=== PATIENT | female | born 1965 | race Caucasian/White ===

== ENCOUNTER 2019-08-02 07:10 | Outpatient (CLI) | payer OTHER, SELFPAY ==
--- NOTE | ~2019-08-02 | XR_ITS ---
EXAMINATION: XR shoulder RT min 2V INDICATION: Other specific arthropathies not elsewhere specified TECHNIQUE: Four views of the right shoulder are submitted. COMPARISON: None FINDINGS: Normal alignment. No fracture. There is mild glenohumeral and acromioclavicular joint osteo arthritis. Soft tissues are unremarkable. IMPRESSION: 1. Mild osteoarthritis without acute osseous abnormality. Reviewed, dictated and finalized at location A.
== END 2019-08-02 07:11 | disposition home or self-care (01) ==
PROVIDERS: PCP Family Medicine; Visit Provider Family Medicine
DX: M19.011 Primary osteoarthritis, right shoulder (principal)
CPT/HCPCS: 73030

== ENCOUNTER 2019-09-05 15:41 | Outpatient (CLI) | payer OTHER, SELFPAY ==
[2019-09-05 16:36] LABS: Blood Urea Nitrogen 12 mg/dL (7-17); Estimated Glomerular Filt Rate > 60
[2019-09-05 17:44] LABS: Iron 67 ug/dL (37-170)
[2019-09-05 17:53] LABS: Percent Iron Saturation 17 % (20-50)
[2019-09-05 18:20] LABS: Ferritin 8.65 ng/mL (11.1-264)
== END 2019-09-05 15:42 | disposition home or self-care (01) ==
PROVIDERS: PCP Family Medicine; Visit Provider Internal Medicine Pulmonary Disease
DX: M25.50 Pain in unspecified joint (principal)
CPT/HCPCS: 36415; 82565; 82728; 83540; 83550; 84520

== ENCOUNTER 2019-09-12 06:58 | Outpatient (CLI) | payer OTHER, SELFPAY ==
[2019-09-12 07:53] LABS: Alanine Aminotransferase 34 U/L (4-35); Albumin Level 4.3 g/dL (3.5-5.1); Alkaline Phosphatase 59 U/L (38-126); Anion Gap 9.2 mmol/L (7-16); Aspartate Amino Transferase 39 U/L (14-36); Bilirubin,Total 0.2 mg/dL (0.2-1.3); Blood Urea Nitrogen 12 mg/dL (7-17); Calcium 9.3 mg/dL (8.4-10.2); Carbon Dioxide 31 mmol/L (22-30); Chloride 104 mmol/L (98-107); Cholesterol 191 mg/dL (0-200); Estimated Glomerular Filt Rate > 60; Glucose 102 mg/dL (65-105); HDL Direct 52 mg/dL; Potassium 4.2 mmol/L (3.4-5.0); Sodium 140 mmol/L (137-145); Triglycerides 82 mg/dL (<150)
[2019-09-12 08:04] LABS: LDL Cholesterol Direct 104 mg/dL
[2019-09-12 08:59] LABS: Folic Acid 11.9 ng/mL (2.76->20)
== END 2019-09-12 06:59 | disposition home or self-care (01) ==
PROVIDERS: PCP Physician Assistant; Visit Provider Physician Assistant
DX: Z00.00 Encounter for general adult medical examination without abnormal findings (principal)
CPT/HCPCS: 36415; 80053; 80061; 82607; 82746

== ENCOUNTER → 2020-02-03 12:27 | Outpatient (CLI) | payer OTHER, SELFPAY ==
--- NOTE | ~2020-02-03 | MM_ITS ---
EXAMINATION: MM screening [facility] BI w mei HISTORY: Screening TECHNIQUE: Craniocaudal and mediolateral oblique 3-D tomosynthesis images were obtained and synthetic 2-D images were generated. CAD analysis was submitted and interpreted. COMPARISON: Comparison to multiple prior studies sequentially, with oldest reviewed study dated 05/31. BREAST PARENCHYMAL COMPOSITION: There are scattered areas of fibroglandular density. FINDINGS: There is no evidence of suspicious mass, calcification, or architectural distortion to sugg est malignancy in either breast. There has been no suspicious interval change. IMPRESSION: 1. No mammographic evidence of malignancy. 2. Recommend routine screening mammography in one year. BI-RADS Category 1: Negative Reviewed, dictated and finalized at location A. 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
== END ==
PROVIDERS: PCP Physician Assistant; Visit Provider Physician Assistant
DX: Z12.31 Encounter for screening mammogram for malignant neoplasm of breast (principal)
CPT/HCPCS: 77063; 77067

== ENCOUNTER 2020-09-14 06:41 | Outpatient (CLI) | payer OTHER, SELFPAY ==
--- NOTE | ~2020-09-14 | XR_ITS ---
XR hip RT min 3V w AP pelvis DATE: 09/14/2020 07:46 INDICATION: Right hip pain. Loss of strength. No injury. TECHNIQUE: AP pelvis. AP, lateral, crosstable lateral views of right hip COMPARISON: None FINDINGS: There is rotatory levoscoliosis and L5-S1 degenerative disc disease of the lumbar spine. The pubic symphysis and sacroiliac joints are intact. No pelvic fracture or bone destruction. No fracture, dislocation, avascular necrosis or bone destruction of the right hip. Hip joint spaces a re symmetric and relatively well preserved. IMPRESSION: No right hip fracture, avascular necrosis or bone destruction Degenerative disc disease at L5-S1 Rotatory levoscoliosis of the lumbar spine Reviewed, dictated and finalized at location A.
[2020-09-14 07:47] LABS: Hematocrit 39.6 % (37.0-47.0); Hemoglobin 12.2 g/dL (12.0-15.0); Mean Corpuscular HGB Conc 30.8 g/dl (32-36); Mean Corpuscular Hemoglobin 28.2 pg (26-34); Mean Corpuscular Volume 91.5 fl (80-100); Mean Platelet Volume 9.9 fl (7.4-10.4); Platelet Count Result 309 k/mm3 (150-375); Red Blood Count 4.33 M/mm3 (4.2-5.4); Red Cell Distribution Width 14.8 % (11.5-14.5); White Blood Count 5.9 K/mm3 (4.5-10.0)
[2020-09-14 08:47] LABS: Alanine Aminotransferase 29 U/L (4-35); Albumin Level 4.2 g/dL (3.5-5.1); Alkaline Phosphatase 61 U/L (38-126); Anion Gap 5 mmol/L (8-16); Aspartate Amino Transferase 40 U/L (14-36); Bilirubin,Total 0.3 mg/dL (0.2-1.3); Blood Urea Nitrogen 13 mg/dL (7-17); Calcium 9.5 mg/dL (8.4-10.2); Carbon Dioxide 27 mmol/L (22-30); Chloride 108 mmol/L (98-107); Cholesterol 188 mg/dL (0-200); Estimated Glomerular Filt Rate > 60; Glucose 103 mg/dL (65-110); HDL Direct 58 mg/dL; Potassium 4.6 mmol/L (3.4-5.0); Sodium 140 mmol/L (137-145); Triglycerides 60 mg/dL (<150)
[2020-09-14 08:59] LABS: LDL Cholesterol Direct 89 mg/dL
[2020-09-14 09:35] LABS: Iron 37 ug/dL (37-170)
[2020-09-14 09:47] LABS: Percent Iron Saturation 9 % (20-50)
[2020-09-14 10:09] LABS: Ferritin 6.68 ng/mL (11.1-264)
[2020-09-14 10:26] LABS: Folic Acid 10.4 ng/mL (2.76->20)
== END 2020-09-14 06:42 | disposition home or self-care (01) ==
LOC: ANHLAB 06:45
PROVIDERS: PCP Physician Assistant; Visit Provider Physician Assistant
DX: M25.551 Pain in right hip (principal)
CPT/HCPCS: 36415; 73502; 80053; 80061; 82607; 82728; 82746; 83540; 83550; 84443; 85027

== ENCOUNTER 2020-10-18 02:10 | Day surgery (SDC) | payer OTHER, SELFPAY ==
[2020-10-13 15:50] VITALS: BMI 34.8
--- NOTE | 2020-10-18 07:44 | P.PNAN_ITS ---
Anes - Initial Pre Proc Eval Procedure: Operation Date: 10/18/20 09:45 Proposed Procedures p Colonoscopy - Cole Leon MD Date/Time: 10/18/20 07:44 Surgeon: Cole Leon MD Pre Op Diagnosis: FARRAH D50.9, hx of colon polyps Z86.010 Patient Data Age: 55 Gender: F Height: 1.63 m Weight: 92 kg Allergies Allergy/AdvReac Type Severity Reaction Status Date / Time hydrocodone Allergy Severe DIZZINESS Verified 10/18/20 09:10 AND N/V,BP DROPS Home Medications Medication Instructions Recorded Confirmed Type omeprazole magnesium 20 mg 20 mg PO DAILY 05/12/19 10/13/20 History tablet,delayed release ferrous sulfate 325 mg (65 mg 325 mg PO .qod tablet 09/11/19 10/13/20 History iron) tablet Patient hx anesthesia problems: none Family hx anesthesia problems: none [facility] Past Medical History Medical History (Updated 10/18/20 @ 09:31 by Cole Leon MD) Arthritis Chronic GERD CTS (carpal tunnel syndrome) Iron deficiency anemia Obesity (BMI 30-39.9) Surgical History Surgical History H/O section H/O elbow surgery H/O tubal ligation Family History Family History Father Family history of lung cancer Mother Family history of coronary artery disease Other Diabetes mellitus Social History Social History Smoking status: Never smoker Second hand tobacco smoke exposure: No Alcohol intake: never Alcohol use details: socially Substance use: never Substance use type: does not use Living arrangements: with family Spiritual care concerns: No Anes - Eval Final PreProcedure Day of Procedure 10/18/20 07:44 Patient weight: obese Heart: regular rate and rhythm Lungs: clear to auscultation and normal air movement Airway: Mallampati scale class II Neurological: alert and oriented Last oral intake: >/= 8 hours ASA classification: II Emergent: no Anesthetic plan: proceed Anesthesia type and monitoring: general GIVS Informed Consent: The patient's anesthetic plan and its attendant risks and benefits were discussed with the patient/family/POA. Questions were solicited and answers provided to the satisfaction of the patient/family/POA.
[2020-10-18 09:12] VITALS: BP 137/87; PULSE 66; RESP 16; TEMP 36.3; O2SAT 100; BMI 34.7
[2020-10-18] MEDS: LACTATED RINGERS 1,000 ML 150 ML IV CONT (09:23)
--- NOTE | 2020-10-18 09:29 | WPDGICN ---
Assessment and Plan Assessment and plan (1) History of colon polyps: Code(s): Z86.010 - Personal history of colonic polyps Status: Acute Assessment and Plan: Patient has a history of colon polyps. Most recently 2016. For this reason patient follows up with repeat colonoscopy today. Further recommendations will be given after endoscopy. Colon polyps potentially could contribute to iron deficiency. (2) Iron deficiency: Code(s): E61.1 - Iron deficiency Status: Acute Assessment and Plan: Patient has low iron indices as well as a low ferritin. Suggesting iron deficiency. She does have a history of colon polyps which potentially could contribute to this. She has a history of GE reflux that could contribute should she have erosions. And also may be iron deficient because of chronic PPI therapy and iron suppression causing malabsorption of iron. Suggest stool Hemoccult be obtained as an outpatient (3) Chronic GERD: Code(s): K21.9 - Gastro-esophageal reflux disease without esophagitis Status: Acute Assessment and Plan: patient has a history of chronic GE reflux. Currently controlled with omeprazole 20mg p.o. daily. Patient may benefit from elective EGD because of iron deficiency. GI Consult Note Consult date/time: 10/18/20 09:29 HPI: Yoselin Taylor is a 55 year old female Presents for surveillance colonoscopy. Patient was found to have colon polyp in 2016. She presents today for follow-up examination. Patient reports that her laboratory test have consistently shown a low ferritin and low iron saturation. Patient is not anemic. She denies any obvious bleeding. No obvious bruises. No significant extra menstrual blood loss. She has no obvious blood in her stools. Family history is noncontributory. She currently is on supplemental iron replacement. She presents today for follow-up colonoscopy. Review of Systems Review of Systems: All systems reviewed & are unremarkable except as noted in HPI and below PMFSH Past Medical History Medical History (Updated 10/18/20 @ 09:31 by Cole Leon MD) Arthritis Chronic GERD CTS (carpal tunnel syndrome) Iron deficiency anemia Obesity (BMI 30-39.9) Surgical History Surgical History H/O section H/O elbow surgery H/O tubal ligation Family History Family History Father Family history of lung cancer Mother Family history of coronary artery disease Other Diabetes mellitus Social History Social History Smoking status: Never smoker Second hand tobacco smoke exposure: No Alcohol intake: never Alcohol use details: socially Substance use: never Substance use type: does not use Living arrangements: with family Spiritual care concerns: No Meds Home Medications and Allergies Home Medications Medication Instructions Recorded Confirmed Type omeprazole magnesium 20 mg 20 mg PO DAILY 05/12/19 10/13/20 History tablet,delayed release ferrous sulfate 325 mg (65 mg 325 mg PO .qod tablet 09/11/19 10/13/20 History iron) tablet Allergies Allergy/AdvReac Type Severity Reaction Status Date / Time hydrocodone Allergy Severe DIZZINESS Verified 10/18/20 09:10 AND N/V,BP DROPS Vital Signs Vital Signs - 24 hr 10/18/20 09:12 Temperature 97.4 F L Pulse Rate 66 Respiratory Rate 16 Blood Pressure 137/87 Pulse Oximetry 100 Exam Narrative: Physical exam reveals patient be alert. Vital signs stable. HEENT exam is unremarkable. Patient is anicteric. Lungs are clear to auscultation and percussion. Heart is without murmur or extra sounds. Abdominal exam bowel sounds are present soft nontender with no organomegaly. Digital external rectal exam is normal.
[2020-10-18 10:21] VITALS: BP 105/61; PULSE 79; RESP 17; O2SAT 98
[2020-10-18 10:31] VITALS: BP 112/69; PULSE 80; RESP 17; O2SAT 97
[2020-10-18 10:41] VITALS: BP 115/81; PULSE 66; RESP 13; O2SAT 100
== END 2020-10-18 10:53 | disposition home or self-care (01) ==
PROVIDERS: PCP Physician Assistant; Visit Provider Internal Medicine Gastroenterology
PROC: 0DJD8ZZ Inspection of Lower Intestinal Tract, Via Natural or Artificial Opening Endoscopic (ICD-10-PCS; CPT 45378; principal; 2020-10-18 09:45)
DX: D50.9 Iron deficiency anemia, unspecified (principal); K63.5 Polyp of colon; M19.90 Unspecified osteoarthritis, unspecified site; G56.00 Carpal tunnel syndrome, unspecified upper limb; E66.9 Obesity, unspecified; Z68.34 Body mass index [BMI] 34.0-34.9, adult
CPT/HCPCS: 45385; 88305; J2704; J7120

== ENCOUNTER 2020-12-20 15:40 | Outpatient (CLI) | payer OTHER, SELFPAY ==
[2020-12-20 16:59] LABS: Iron 81 ug/dL (37-170)
[2020-12-20 17:13] LABS: Percent Iron Saturation 24 % (20-50)
== END 2020-12-20 15:41 | disposition home or self-care (01) ==
LOC: ANHLAB 15:42
PROVIDERS: PCP Internal Medicine; Visit Provider Physician Assistant
DX: D50.9 Iron deficiency anemia, unspecified (principal)
CPT/HCPCS: 36415; 82728; 83540; 83550

== ENCOUNTER 2021-01-04 12:15 | Outpatient (CLI) | payer OTHER, SELFPAY ==
--- NOTE | 2021-01-04 12:28 | PC.NURSE ---
Pt to room 209 amb per self. [facility] plan of care explained. Pt has no questions. Complains of body aches today. Oriented to room. [employer] in reach, reminded to call with needs.
[2021-01-04] MEDS: FAMOTIDINE 20 MG TABLET PO (12:47)
[2021-01-04] MEDS: ACETAMINOPHEN 325 MG TABLET 650 MG PO (12:47)
[2021-01-04] MEDS: diphenhydrAMINE HCl CAP 25 MG CAPSULE PO (12:47)
[2021-01-04 12:48] VITALS: BP 135/85; PULSE 101; RESP 20; TEMP 38.2; O2SAT 99
--- NOTE | 2021-01-04 14:32 | PC.NURSE ---
Pt has no questions or complaints. Discharged to home amb per self.
== END 2021-01-04 12:16 | disposition home or self-care (01) ==
LOC: CHSTREATRM 12:18
PROVIDERS: PCP Physician Assistant; Visit Provider Physician Assistant
DX: U07.1 COVID-19 (principal)
CPT/HCPCS: A9270; J7050; M0243; Q0244

== ENCOUNTER 2021-01-22 08:58 | Outpatient (CLI) | payer OTHER, SELFPAY ==
--- NOTE | ~2021-01-22 | MR_ITS ---
EXAMINATION: MR lumbar spine wo con DATE: 01/22/2021 09:47 INDICATION: Lumbar radiculopathy. TECHNIQUE: Magnetic resonance imaging (MRI) of the lumbar spine was performed without intravenous con trast. Sequences included sagittal T2-weighted FSE, coronal STIR FSE, sagittal T2-weighted FS FSE, sa gittal T1-weighted FSE, and axial T2-weighted FSE. COMPARISON: None FINDINGS: There is 14 degrees levoscoliosis of lumbar spine. Vertebral body heights are normal. There is moderately decreased disc height at L2-L3, mildly decreased disc height at L4-L5, and severely de creased disc height at L5-S1. The following disc levels are specifically discussed: L1-L2: There is a central protrusion. There is mild bilateral facet joint osteoarthritis. There is no neural foraminal stenosis. There is mild central canal stenosis. L2-L3: The disc is bulging and has an annular fissure. There is mild bilateral facet joint osteoarthr itis. There is mild bilateral neural foraminal stenosis. There is mild central canal stenosis. L3-L4: The disc does not extend beyond the endplate margin. There is moderate right and mild left fac et joint osteoarthritis. There is no neural foraminal stenosis. There is no central canal stenosis. L4-L5: The disc is bulging and has an annular fissure. There is mild bilateral facet joint osteoarthr itis. There is mild bilateral neural foraminal stenosis. There is mild central canal stenosis. L5-S1: The disc is bulging and has an annular fissure. There is moderate bilateral facet joint osteoa rthritis. There is mild bilateral neural foraminal stenosis. There is mild central canal stenosis. IMPRESSION: 1. Severe lumbar spondylosis. 2. Lumbar levoscoliosis. Reviewed, dictated and finalized at location A. 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
== END 2021-01-22 08:59 | disposition home or self-care (01) ==
LOC: ANHIMG 09:05
PROVIDERS: PCP Physician Assistant; Visit Provider Nurse Practitioner Adult Health
DX: M54.16 Radiculopathy, lumbar region (principal); M43.06 Spondylolysis, lumbar region; M41.86 Other forms of scoliosis, lumbar region
CPT/HCPCS: 72148

== ENCOUNTER 2021-02-02 00:20 | Day surgery (SDC) | payer OTHER, SELFPAY ==
[2021-01-19 08:44] VITALS: BMI 34.0
[2021-02-02 07:46] VITALS: BP 144/93; PULSE 97; RESP 18; TEMP 36.7; O2SAT 98
[2021-02-02] MEDS: LACTATED RINGERS 1,000 ML 150 ML IV CONT (07:49)
--- NOTE | 2021-02-02 08:20 | WPDANESEPPF ---
Anes - Initial Pre Proc Eval Procedure: Operation Date: 02/02/21 09:00 Proposed Procedures p Esophagogastroduodenoscopy - Cole Leon MD Date/Time: 02/02/21 08:20 Surgeon: Cole Leon MD Pre Op Diagnosis: FARRAH, GERD Patient Data Age: 55 Gender: F Height: 1.63 m Weight: 92.5 kg Last Vital Signs Temp 36.7 C 02/02/21 07:46 Pulse 97 02/02/21 07:46 Resp 18 02/02/21 07:46 BP 144/93 H 02/02/21 07:46 Pulse Ox 98 02/02/21 07:46 Allergies Allergy/AdvReac Type Severity Reaction Status Date / Time hydrocodone Allergy Severe DIZZINESS Verified 02/02/21 07:45 AND N/V,BP DROPS Home Medications Medication Instructions Recorded Confirmed Type omeprazole magnesium 20 mg 20 mg PO DAILY 05/12/19 02/02/21 History tablet,delayed release ferrous sulfate 325 mg (65 mg 325 mg PO .qod tablet 09/11/19 02/02/21 History iron) tablet Patient hx anesthesia problems: none Family hx anesthesia problems: none Results Review: All pre-operative results and documents have been reviewed as part of the pre-operative evaluation. [facility] Past Medical History Medical History Arthritis Chronic GERD CTS (carpal tunnel syndrome) Iron deficiency anemia Obesity (BMI 30-39.9) Surgical History Surgical History H/O section H/O elbow surgery H/O tubal ligation Family History Family History Father Family history of lung cancer Mother Family history of coronary artery disease Other Diabetes mellitus Social History Social History Smoking status: Never smoker Second hand tobacco smoke exposure: No Alcohol intake: never Alcohol use details: socially Substance use: never Substance use type: does not use Living arrangements: with family Spiritual care concerns: No Anes - Eval Final PreProcedure Day of Procedure 02/02/21 08:20 Patient weight: obese Heart: regular rate and rhythm Lungs: clear to auscultation Airway: Mallampati scale class II Neurological: alert and oriented Last oral intake: >/= 8 hours ASA classification: II Emergent: no Anesthetic plan: proceed Anesthesia type and monitoring: general GIVS and standard monitoring Results Review: All pre-operative results and documents have been reviewed as part of the pre-operative evaluation. Informed Consent: The patient's anesthetic plan and its attendant risks and benefits were discussed with the patient/family/POA. Questions were solicited and answers provided to the satisfaction of the patient/family/POA.
--- NOTE | 2021-02-02 08:39 | WPDGICN ---
Assessment and Plan Assessment and plan (1) Iron deficiency: Code(s): E61.1 - Iron deficiency Status: Acute Assessment and Plan: Patient with iron deficiency may be related to blood loss for this reason EGD will be performed. Alternatively it may be related to chronic PPI therapy and acid suppression. Supplemental iron is advised. Follow-up CBC. If says iron fails to improve on oral iron then consider intravenous iron. (2) Chronic GERD: Code(s): K21.9 - Gastro-esophageal reflux disease without esophagitis Status: Acute Assessment and Plan: Chronic GE reflux potentially contributes to anemia. EGD will be performed today. Currently felt stable on PPI therapy and anti-reflux measures. Further recommendations may be given after endoscopy. (3) History of colon polyps: Code(s): Z86.010 - Personal history of colonic polyps Status: Acute Assessment and Plan: Patient has a history of adenomatous colon polyps. Most recently October 2020. Plan is for follow-up colonoscopy at 5 year intervals. GI Consult Note Consult date/time: 02/02/21 08:39 HPI: Yoselin Taylor is a 55 year old female Presents for EGD. Patient has a history of iron deficiency anemia. Recent colonoscopy revealed benign colon polyps. She has a history of chronic GE reflux disease well controlled on Prilosec 20mg p.o. daily. Because of iron deficiency in EGD is requested to evaluate for possible upper GI source of anemia. She has been on chronic PPI therapy as well. She denies any dysphagia bleeding or weight loss. No longer has menstrual cycles. Review of Systems Review of Systems: All systems reviewed & are unremarkable except as noted in HPI and below PMFSH Past Medical History Medical History Arthritis Chronic GERD CTS (carpal tunnel syndrome) Iron deficiency anemia Obesity (BMI 30-39.9) Surgical History Surgical History H/O section H/O elbow surgery H/O tubal ligation Family History Family History Father Family history of lung cancer Mother Family history of coronary artery disease Other Diabetes mellitus Social History Social History Smoking status: Never smoker Second hand tobacco smoke exposure: No Alcohol intake: never Alcohol use details: socially Substance use: never Substance use type: does not use Living arrangements: with family Spiritual care concerns: No Meds Home Medications and Allergies Home Medications Medication Instructions Recorded Confirmed Type omeprazole magnesium 20 mg 20 mg PO DAILY 05/12/19 02/02/21 History tablet,delayed release ferrous sulfate 325 mg (65 mg 325 mg PO .qod tablet 09/11/19 02/02/21 History iron) tablet Allergies Allergy/AdvReac Type Severity Reaction Status Date / Time hydrocodone Allergy Severe DIZZINESS Verified 02/02/21 07:45 AND N/V,BP DROPS Vital Signs Vital Signs - 24 hr 02/02/21 07:46 Temperature 98.1 F Pulse Rate 97 Respiratory Rate 18 Blood Pressure 144/93 H Pulse Oximetry 98 Exam Narrative: Physical exam reveals patient be alert. Vital signs stable. HEENT exam is unremarkable. Patient is anicteric. Lungs are clear to auscultation and percussion. Heart is without murmur or extra sounds. Abdominal exam bowel sounds present soft nontender with no organomegaly.
[2021-02-02 09:41] VITALS: BP 123/80; PULSE 91; RESP 18; O2SAT 100
[2021-02-02 09:51] VITALS: BP 131/80; PULSE 89; RESP 15; O2SAT 97
[2021-02-02 10:01] VITALS: BP 139/93; PULSE 88; RESP 21; O2SAT 98
== END 2021-02-02 10:06 | disposition home or self-care (01) ==
PROVIDERS: PCP Physician Assistant; Visit Provider Internal Medicine Gastroenterology
PROC: 0DJ08ZZ Inspection of Upper Intestinal Tract, Via Natural or Artificial Opening Endoscopic (ICD-10-PCS; CPT 43235; principal; 2021-02-02 09:00)
DX: D50.9 Iron deficiency anemia, unspecified (principal); K21.9 Gastro-esophageal reflux disease without esophagitis; Z86.010 Personal history of colon polyps; E66.9 Obesity, unspecified; Z68.35 Body mass index [BMI] 35.0-35.9, adult
CPT/HCPCS: 43239; 87081; J2704; J7120

== ENCOUNTER 2021-06-02 06:45 | Outpatient (CLI) | payer OTHER, SELFPAY ==
[2021-06-02 07:27] LABS: Hematocrit 41.3 % (37.0-47.0); Hemoglobin 13.8 g/dL (12.0-15.0); Mean Corpuscular HGB Conc 33.4 g/dl (32-36); Mean Corpuscular Hemoglobin 32.5 pg (26-34); Mean Corpuscular Volume 97.2 fl (80-100); Platelet Count Result 271 k/mm3 (150-375); Red Blood Count 4.25 M/mm3 (4.2-5.4); Red Cell Distribution Width 12.5 % (11.5-14.5); White Blood Count 5.9 K/mm3 (4.5-10.0)
[2021-06-02 07:42] LABS: Alanine Aminotransferase 27 U/L (4-35); Albumin Level 4.2 g/dL (3.5-5.1); Alkaline Phosphatase 56 U/L (38-126); Anion Gap 3 mmol/L (8-16); Aspartate Amino Transferase 32 U/L (14-36); Bilirubin,Total 0.3 mg/dL (0.2-1.3); Blood Urea Nitrogen 14 mg/dL (7-17); Carbon Dioxide 30 mmol/L (22-30); Chloride 106 mmol/L (98-107); Cholesterol 212 mg/dL (0-200); Estimated Glomerular Filt Rate > 60; Glucose 100 mg/dL (65-110); HDL Direct 54 mg/dL; Potassium 3.7 mmol/L (3.4-5.0); Sodium 139 mmol/L (137-145); Triglycerides 70 mg/dL (<150)
[2021-06-02 07:53] LABS: LDL Cholesterol Direct 109 mg/dL
[2021-06-02 08:45] LABS: Folic Acid 14.4 ng/mL (2.76->20)
[2021-06-02 08:59] LABS: Iron 114 ug/dL (37-170)
[2021-06-02 09:06] LABS: Percent Iron Saturation 35 % (20-50)
== END 2021-06-02 06:46 | disposition home or self-care (01) ==
LOC: ANHLAB 06:46
PROVIDERS: PCP Physician Assistant; Visit Provider Physician Assistant
DX: Z00.00 Encounter for general adult medical examination without abnormal findings (principal); D64.9 Anemia, unspecified
CPT/HCPCS: 36415; 80053; 80061; 82607; 82728; 82746; 83540; 83550; 84443; 85027

== ENCOUNTER 2021-07-27 15:28 | Outpatient (CLI) | payer OTHER, SELFPAY ==
--- NOTE | ~2021-07-27 | XR_ITS ---
EXAM: XR knee LT 3V DATE: 07/27/2021 15:56 HISTORY: M25.561 -INJURY X3 WKS AGO,FALL ON KNEE,LUMP ON RT PATELLA . COMPARISON: 10/30/2016. FINDINGS: Decreased mineralization. No fracture or dislocation. No lytic or blastic lesion. Joint sp aces are maintained. Mild bilateral medial joint space narrowing. Bilateral quadriceps and plantar en thesopathy, worse on the right. No erosion or periosteal change. Soft tissues within normal limits. IMPRESSION: No acute osseous finding in the right or left knee. Right patellar enthesophytes may be r esponsible for a palpable mass or lump. Reviewed, dictated and finalized at location K. IMPRESSION: No acute osseous finding in the right or left knee. Right patellar enthesophytes may be responsible for a palpable mass or lump.
--- NOTE | ~2021-07-27 | XR_ITS ---
EXAM: XR knee RT 3V DATE: 07/27/2021 15:56 HISTORY: M25.561 -INJURY X3 WKS AGO,FALL ON KNEE,LUMP ON RT PATELLA . COMPARISON: 10/30/2016. FINDINGS: Decreased mineralization. No fracture or dislocation. No lytic or blastic lesion. Joint sp aces are maintained. Mild bilateral medial joint space narrowing. Bilateral quadriceps and plantar en thesopathy, worse on the right. No erosion or periosteal change. Soft tissues within normal limits. IMPRESSION: No acute osseous finding in the right or left knee. Right patellar enthesophytes may be r esponsible for a palpable mass or lump. Reviewed, dictated and finalized at location K. IMPRESSION: No acute osseous finding in the right or left knee. Right patellar enthesophytes may be responsible for a palpable mass or lump.
== END 2021-07-27 15:29 | disposition home or self-care (01) ==
LOC: ANHIMG 15:30
PROVIDERS: PCP Physician Assistant; Visit Provider Physician Assistant
DX: M25.561 Pain in right knee (principal); M25.562 Pain in left knee
CPT/HCPCS: 73562

== ENCOUNTER → 2022-02-09 09:45 | Outpatient (CLI) | payer BC, SELFPAY ==
--- NOTE | ~2022-02-09 | MM_ITS ---
EXAMINATION: MM screening [facility] BI w mei HISTORY: Screening mammogram TECHNIQUE: Craniocaudal and mediolateral oblique 3-D tomosynthesis images were obtained and synthetic 2-D images were generated. CAD analysis was submitted and interpreted. COMPARISON: 02/03/2020, 01/07/2019, 01/05/2018 BREAST PARENCHYMAL COMPOSITION: There are scattered areas of fibroglandular density. FINDINGS: No suspicious mass, calcification, or architectural distortion are identified in either cristina ast to suggest malignancy. There has been no suspicious interval change. IMPRESSION: 1. No mammographic evidence of malignancy. 2. Recommend routine screening mammography in one year. BI-RADS Category 1: Negative Reviewed, dictated and finalized at location A. 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
== END ==
PROVIDERS: PCP Physician Assistant
DX: Z12.31 Encounter for screening mammogram for malignant neoplasm of breast (principal)
CPT/HCPCS: 77063; 77067

== ENCOUNTER 2022-05-23 15:45 | Outpatient (CLI) | payer BC, SELFPAY ==
--- NOTE | ~2022-05-23 | US_ITS ---
US thyroid INDICATION: Thyroiditis TECHNIQUE: Real-time sonographic images of the thyroid gland were obtained. COMPARISON: No prior studies for comparison. FINDINGS: The right thyroid lobe measures 5 x 1.3 x 1.4 cm. The left thyroid lobe measures 5.3 x 1.1 x 1.4 cm. Thyroid gland is heterogeneous with multiple thyroid nodules in the right lobe there is a solid hypoechoic wider than tall, irregularly marginated mass with internal punctate echogenic foci, measuring 1.2 x 0.8 x 0.8 cm, TR 5. In the left thyroid lobe there is a solid hypoechoic, wider than tall, smoothly marginated mass without internal echogenic foci, TR 4, likely benign. Follow-up ultras ound in 12 months recommended. Also in the left lobe there is a heterogeneous partially cystic 9 mm m ass which is wider than tall, smoothly marginated and no internal echogenic foci, TR 3. IMPRESSION: 1. Suspicious right thyroid mass measuring up to 1.2 cm. Ultrasound-guided right thyroid fine needle aspiration biopsy recommended. 2: Left thyroid masses, likely benign. Follow-up ultrasound in 12 months recommended. Reviewed, dictated and finalized at location A. IMPRESSION: 1. Suspicious right thyroid mass measuring up to 1.2 cm. Ultrasound-guided rig ht thyroid fine needle aspiration biopsy recommended. 2: Left thyroid masses, likely benign. Follow-up ultrasound in 12 months recomm ended.
== END 2022-05-23 15:46 | disposition home or self-care (01) ==
PROVIDERS: PCP Physician Assistant; Visit Provider Physician Assistant
DX: E06.0 Acute thyroiditis (principal); E07.9 Disorder of thyroid, unspecified
CPT/HCPCS: 76536

== ENCOUNTER 2022-06-02 12:11 | Outpatient (CLI) | payer BC, SELFPAY ==
--- NOTE | ~2022-06-02 | US_ITS ---
EXAMINATION: US FNA w image guidance DATE: 06/02/2022 14:21 INDICATION: Right thyroid nodule TECHNIQUE: A time-out was performed to verify the patient's name, date of , and procedure to be performed . The procedure and its benefits and risks were discussed with the patient. Risks specifically discus sed included bleeding and infection. The patient understood the risks and agreed to proceed. The neck was prepped and draped in the usual sterile manner. 3 mL 1% lidocaine was used for local anesthesia . 6 passes were made with a 25G needle into the lesion. Appropriate needle location was documented with continuous sonographic guidance. A sterile bandage was applied. There were no immediate compli cations. FINDINGS: Grayscale ultrasound images demonstrate biopsy needles advanced into a 1.2 cm solid right thyroid nod ule which is hypoechoic, taller than wide with lobular margins and internal echogenic foci (TI-RADS 5 , highly suspicious , FNA if >=1.0 cm, annual followup is >0.5 cm). IMPRESSION: 1. Successful ultrasound-guided fine needle aspiration of a TI RADS 5 1.2 cm right thyroid nodule of concern. Reviewed, dictated and finalized at location A. IMPRESSION: 1. Successful ultrasound-guided fine needle aspiration of a TI RADS 5 1.2 cm r ight thyroid nodule of concern.
== END 2022-06-02 12:12 | disposition home or self-care (01) ==
LOC: ANHIMG 12:12
PROVIDERS: PCP Physician Assistant; Visit Provider Physician Assistant
DX: E04.1 Nontoxic single thyroid nodule (principal)
CPT/HCPCS: 10005; 88173; 88305

== ENCOUNTER 2022-06-03 06:55 | Outpatient (CLI) | payer BC, SELFPAY ==
[2022-06-03 07:22] LABS: Mean Corpuscular HGB Conc 32.6 g/dl (32-36); Mean Corpuscular Hemoglobin 32.2 pg (26-34); Mean Corpuscular Volume 98.9 fl (80-100); Mean Platelet Volume 10.1 fl (7.4-10.4); Platelet Count Result 286 k/mm3 (150-375); Red Blood Count 4.35 M/mm3 (4.2-5.4); Red Cell Distribution Width 12.5 % (11.5-14.5); White Blood Count 5.7 K/mm3 (4.5-10.0)
[2022-06-03 07:42] LABS: Alanine Aminotransferase 32 U/L (6-35); Albumin Level 4.2 g/dL (3.5-5.1); Alkaline Phosphatase 59 U/L (38-126); Anion Gap 2 mmol/L (8-16); Aspartate Amino Transferase 32 U/L (14-36); Bilirubin,Total 0.5 mg/dL (0.2-1.3); Blood Urea Nitrogen 13 mg/dL (7-17); Calcium 9.4 mg/dL (8.4-10.2); Carbon Dioxide 33 mmol/L (22-30); Chloride 106 mmol/L (98-107); Cholesterol 187 mg/dL (0-200); Estimated Glomerular Filt Rate > 60; Glucose 102 mg/dL (65-110); HDL Direct 54 mg/dL; Potassium 4.3 mmol/L (3.4-5.0); Sodium 141 mmol/L (137-145); Triglycerides 73 mg/dL (<150)
[2022-06-03 07:43] LABS: Iron 75 ug/dL (37-170)
[2022-06-03 07:52] LABS: LDL Cholesterol Direct 100 mg/dL; Percent Iron Saturation 26 % (20-50)
== END 2022-06-03 06:56 | disposition home or self-care (01) ==
LOC: ANHLAB 06:56
PROVIDERS: PCP Physician Assistant; Visit Provider Physician Assistant
DX: Z00.00 Encounter for general adult medical examination without abnormal findings (principal); D64.9 Anemia, unspecified
CPT/HCPCS: 36415; 80053; 80061; 82728; 83540; 83550; 84443; 85027

== ENCOUNTER 2022-06-30 15:05 | Outpatient (CLI) | payer BC, SELFPAY ==
--- NOTE | ~2022-06-30 | CT_ITS ---
CT scan of the Neck Technique: 2.5 mm axial scans were obtained through the neck after intravenous administration of 75 c c Omnipaque 350. Coronal and sagittal reconstructions of the neck were obtained. Dose reduction techn ique was used on this scan by utilizing automated exposure control and iterative reconstruction techn ique. The dose-length product (DLP) was 548.34 mGy-cm. Clinical History: Disorder of thyroid, unspecified. Findings: There is no evidence of any significant cervical lymphadenopathy. Several small, nonenlarged jugulo- digastric and posterior cervical lymph nodes are noted bilaterally. Parapharyngeal spaces appear norm al bilaterally. The parotid and submandibular glands appear normal. The pharyngeal mucosal spaces appear normal. No soft tissue masses are seen in the neck. Probable 9 mm hypodense right thyroid lobe nodule. Images of the lung apices reveal no abnormalities. No orbital abnormality seen. Paranasal sinuses and mastoid air cells are clear. Impression: Probable 9 mm hypodense right thyroid nodule. Correlate with recent thyroid FNA results. No distinct evidence to suggest metastatic disease or lymphadenopathy in the neck. Reviewed, dictated and finalized at [facility]. Impression: Probable 9 mm hypodense right thyroid nodule. Correlate with recent thyroid FNA results. No distinct evidence to suggest metastatic disease or lymphadenopathy in the ne ck.
== END 2022-06-30 15:06 | disposition home or self-care (01) ==
PROVIDERS: PCP Physician Assistant; Visit Provider Otolaryngology
DX: E07.9 Disorder of thyroid, unspecified (principal)
CPT/HCPCS: 70491; Q9967

== ENCOUNTER 2022-07-25 15:25 | Outpatient (CLI) | payer BC, SELFPAY ==
[2022-07-25 16:57] LABS: Vitamin D 25 Hydroxy 34.1 ng/mL
== END 2022-07-25 15:26 | disposition home or self-care (01) ==
LOC: ANHLAB 15:27
PROVIDERS: PCP Physician Assistant; Visit Provider Internal Medicine
DX: Z00.00 Encounter for general adult medical examination without abnormal findings (principal); E66.9 Obesity, unspecified
CPT/HCPCS: 36415; 82306

== ENCOUNTER 2022-11-02 10:41 | Outpatient (CLI) | payer BC, SELFPAY ==
[2022-11-02 11:15] LABS: Alanine Aminotransferase 28 U/L (6-35); Albumin Level 4.3 g/dL (3.5-5.1); Alkaline Phosphatase 54 U/L (38-126); Anion Gap 5 mmol/L (8-16); Aspartate Amino Transferase 33 U/L (14-36); Bilirubin,Total 0.4 mg/dL (0.2-1.3); Blood Urea Nitrogen 10 mg/dL (7-17); Calcium 9.2 mg/dL (8.4-10.2); Carbon Dioxide 31 mmol/L (22-30); Chloride 104 mmol/L (98-107); Estimated Glomerular Filt Rate > 60; Glucose 94 mg/dL (65-110); Potassium 3.6 mmol/L (3.4-5.0); Sodium 140 mmol/L (137-145)
[2022-11-02 11:48] LABS: Free T4 Free Thyroxine 0.94 ng/mL (0.78-2.19); Vitamin D 25 Hydroxy 58.5 ng/mL
== END 2022-11-02 10:42 | disposition home or self-care (01) ==
LOC: ANHLAB 10:42
PROVIDERS: PCP Physician Assistant; Visit Provider Internal Medicine
DX: C73 Malignant neoplasm of thyroid gland (principal)
CPT/HCPCS: 36415; 80053; 82306; 84439; 84443

== ENCOUNTER 2023-02-02 15:40 | Outpatient (CLI) | payer BC, SELFPAY ==
[2023-02-02 16:38] LABS: Alanine Aminotransferase 35 U/L (6-35); Albumin Level 4.5 g/dL (3.5-5.1); Alkaline Phosphatase 58 U/L (38-126); Anion Gap 9 mmol/L (8-16); Aspartate Amino Transferase 36 U/L (14-36); Bilirubin,Total 0.4 mg/dL (0.2-1.3); Blood Urea Nitrogen 11 mg/dL (7-17); Calcium 9.1 mg/dL (8.4-10.2); Carbon Dioxide 28 mmol/L (22-30); Chloride 103 mmol/L (98-107); Estimated Glomerular Filt Rate > 60; Glucose 106 mg/dL (65-110); Magnesium 2.1 mg/dL (1.6-2.3); Phosphorus 3.5 mg/dL (2.5-4.5); Potassium 3.6 mmol/L (3.4-5.0); Sodium 140 mmol/L (137-145)
[2023-02-02 16:49] LABS: Parathyroid Intact 37.8 pg/mL (7.5-53.5)
[2023-02-02 17:10] LABS: Free T4 Free Thyroxine 1.27 ng/mL (0.78-2.19); Vitamin D 25 Hydroxy 52.2 ng/mL
== END 2023-02-02 15:41 | disposition home or self-care (01) ==
PROVIDERS: PCP Physician Assistant; Visit Provider Internal Medicine
DX: C73 Malignant neoplasm of thyroid gland (principal)
CPT/HCPCS: 36415; 80053; 82306; 82330; 83735; 83970; 84100; 84439; 84443; 86800

== ENCOUNTER 2023-02-07 08:05 | Outpatient (CLI) | payer BC, SELFPAY ==
[2023-02-07 09:37] LABS: Free T4 Free Thyroxine 1.45 ng/mL (0.78-2.19)
[2023-02-09 22:25] LABS: Ionized Calcium 4.9 mg/dL (4.7-5.5)
[2023-02-10 04:47] LABS: Thyroglobulin 0.6 ng/mL (2.8-40.9); Thyroglobulin Antibodies <1 IU/mL (<=1)
== END 2023-02-07 08:06 | disposition home or self-care (01) ==
LOC: ANHLAB 08:06
PROVIDERS: PCP Physician Assistant; Visit Provider Internal Medicine
DX: C73 Malignant neoplasm of thyroid gland (principal); E89.0 Postprocedural hypothyroidism
CPT/HCPCS: 36415; 82330; 84432; 84439; 84443; 86800

== ENCOUNTER 2023-03-06 16:05 | Outpatient (CLI) | payer BC, SELFPAY ==
[2023-03-06 17:41] LABS: Thyroid Stimulating Hormone 0.741 uIU/mL (0.465-4.680)
[2023-03-06 19:27] LABS: Free T4 Free Thyroxine 1.39 ng/mL (0.78-2.19)
[2023-03-14 15:43] LABS: T3 Free 2.9 pg/mL
== END 2023-03-06 16:06 | disposition home or self-care (01) ==
PROVIDERS: PCP Physician Assistant
DX: C73 Malignant neoplasm of thyroid gland (principal)
CPT/HCPCS: 36415; 84439; 84443; 84480; 86800

== ENCOUNTER 2023-03-20 06:48 | Outpatient (CLI) | payer BC, SELFPAY ==
[2023-03-23 07:38] LABS: Thyroglobulin 1.2 ng/mL (2.8-40.9); Thyroglobulin Antibodies <1 IU/mL (<=1)
== END 2023-03-20 06:49 | disposition home or self-care (01) ==
PROVIDERS: PCP Physician Assistant
DX: C73 Malignant neoplasm of thyroid gland (principal)
CPT/HCPCS: 36415; 84432; 84443; 86800

== ENCOUNTER 2023-05-05 06:44 | Outpatient (CLI) | payer BC, SELFPAY ==
[2023-05-05 08:07] LABS: Thyroid Stimulating Hormone 0.592 uIU/mL (0.465-4.680)
[2023-05-05 08:19] LABS: Free T4 Free Thyroxine 1.64 ng/mL (0.78-2.19)
[2023-05-08 05:37] LABS: Thyroglobulin 0.1 ng/mL (2.8-40.9); Thyroglobulin Antibodies <1 IU/mL (<=1)
[2023-05-09 06:04] LABS: Triiodothyronine T3 Free 3.4 pg/mL (2.3-4.2)
== END 2023-05-05 06:45 | disposition home or self-care (01) ==
PROVIDERS: PCP Physician Assistant
DX: C73 Malignant neoplasm of thyroid gland (principal)
CPT/HCPCS: 36415; 84432; 84439; 84443; 84481; 86800

== ENCOUNTER 2023-06-19 14:56 | Outpatient (CLI) | payer BC, SELFPAY ==
--- NOTE | ~2023-06-19 | DEXA_ITS ---
Bone Density Report Name: DENI SOOD Age: 57 Sex: Female Ethnicity: White Date of : 1965 Indication: postmenopausal; screening for osteoporosis; Referring Provider: Sergio Bush Study: Bone densitometry was performed. Exam Date: June 19, 2023 Accession number: [id number] Bone Density: Region BMD T-score Z-score Classification AP Spine (L1-L4) 1.039 -0.1 1.3 Normal Femoral Neck (Left) 0.710 -1.2 0.0 Osteopenia Total Hip (Left) 1.043 0.8 1.8 Normal Femoral Neck (Right) 0.785 -0.6 0.7 Normal Total Hip (Right) 1.031 0.7 1.7 Normal Total Hip Mean 1.037 0.8 1.8 Normal World Health Organization criteria for BMD impression classify patients as: Normal (T-score at or above -1.0), Osteopenia (T-score between -1.0 and -2.5), or Osteoporosis (T-score at or below -2.5). 10-year Fracture Risk(1): Major Osteoporotic Fracture 6.9% Hip Fracture 0.4% Reported Risk Factors: [place] (), Neck BMD=0.710, BMI=33.7 (1) FRAX(R) Version 3.08. Fracture probability calculated for an untreated patient. Fracture probability may be lower if the patient has received treatment. Clinical Information Provided by Patient: Has used the following medications: Vitamin D, SYNTHROID Patient maximum height was 64.3 Menopause Age: 50 No regular weight bearing exercise Drinks caffeinated beverages Onset of menses at age 11 Number of children 3 Impression: The patient has low bone mass, based on the Left Femoral Neck T-score. The patient has an estimated ten-year risk of hip fracture of 0.4% and an estimated ten-year risk of major fracture of 6.9%, based on the WHO FRAX algorithm. Discussion: BONE DENSITY IS LOW AT ONE OR MORE SKELETAL SITES. This patient's lowest T-score is low at one or more skeletal sites. It meets the World Health Organization's (WHO) criteria for ?low bone mass? (T-score between -1.0 and -2.5). The patient's 10-year risk of fracture as calculated by FRAX is less than the threshold where pharmacological therapy is recommended by the National Osteoporosis Foundation (NOF). However, all treatment decisions require clinical judgment and consideration of individual patient factors, including patient preferences, comorbidities, previous drug use, risk factors not captured in the FRAX model (e.g., frailty, falls, vitamin D deficiency, increased bone turnover, interval significant decline in bone density) and possible under or overestimation of fracture risk by FRAX. The patient should follow a healthful lifestyle (good nutrition with adequate calcium and vitamin D, and appropriate weight-bearing exercise). Follow-Up: Consider repeating this study in 2 to 3 years to reassess this patient's status, or sooner if there is some new clinical indication. Reported by: SHUKRI on 06/19/2023 3:51:00
--- NOTE | ~2023-06-19 | MM_ITS ---
EXAMINATION: MM screening janes BI w mei HISTORY: Screening TECHNIQUE: Craniocaudal and mediolateral oblique 3-D tomosynthesis images were obtained and synthetic 2-D images were generated. CAD analysis was submitted and interpreted. COMPARISON: 02/09/2022, 02/03/2020 bilateral screening mammogram examinations BREAST PARENCHYMAL COMPOSITION: The breasts are almost entirely fatty. FINDINGS: There is no evidence of suspicious mass, calcification, or architectural distortion to sugg est malignancy in either breast. There has been no suspicious interval change. IMPRESSION: 1. No mammographic evidence of malignancy. 2. Recommend routine screening mammography in one year. BI-RADS Category 1: Negative Reviewed, dictated and finalized at location A.
== END 2023-06-19 14:57 ==
PROVIDERS: Visit Provider Physician Assistant
DX: Z12.31 Encounter for screening mammogram for malignant neoplasm of breast (principal); Z78.0 Asymptomatic menopausal state; M85.852 Other specified disorders of bone density and structure, left thigh
CPT/HCPCS: 77063; 77067; 77080

== ENCOUNTER 2023-08-17 07:21 | Outpatient (CLI) | payer BC, SELFPAY ==
[2023-08-17 08:16] LABS: Albumin Level 4.5 g/dL (3.5-5.1); Calcium 9.2 mg/dL (8.4-10.2); Iron 127 ug/dL (37-170)
[2023-08-17 08:29] LABS: Percent Iron Saturation 43 % (20-50)
[2023-08-17 08:33] LABS: Free T4 Free Thyroxine 1.61 ng/mL (0.78-2.19)
[2023-08-17 08:42] LABS: Thyroid Stimulating Hormone 0.419 uIU/mL (0.465-4.680)
[2023-08-20 13:32] LABS: Thyroglobulin <0.1 ng/mL; Thyroglobulin Antibodies <1 IU/mL (< or = 1)
[2023-08-24 19:19] LABS: T3 Reverse 25 ng/dL (8-25)
== END 2023-08-17 07:22 | disposition home or self-care (01) ==
LOC: ANHLAB 07:23
PROVIDERS: PCP Physician Assistant; Visit Provider Internal Medicine
DX: C73 Malignant neoplasm of thyroid gland (principal); E89.0 Postprocedural hypothyroidism
CPT/HCPCS: 36415; 82040; 82310; 82728; 83540; 83550; 84432; 84439; 84443; 84482; 86800

== ENCOUNTER 2023-11-05 07:10 | Outpatient (CLI) | payer BC, SELFPAY ==
[2023-11-05 08:44] LABS: Free T4 Free Thyroxine 1.41 ng/mL (0.78-2.19)
[2023-11-08 09:18] LABS: Thyroglobulin <0.1 ng/mL; Thyroglobulin Antibodies <1 IU/mL (< or = 1); Thyroid Peroxidase Antibodies <1 IU/mL (<9)
== END 2023-11-05 07:11 | disposition home or self-care (01) ==
PROVIDERS: PCP Internal Medicine; Visit Provider Internal Medicine
DX: C73 Malignant neoplasm of thyroid gland (principal); E89.0 Postprocedural hypothyroidism
CPT/HCPCS: 36415; 84432; 84439; 84443; 86376; 86800

== ENCOUNTER 2023-12-06 08:55 | Outpatient (CLI) | payer BC, SELFPAY ==
--- NOTE | ~2023-12-06 | US_ITS ---
EXAMINATION: US soft tissue head and neck DATE: 12/06/2023 09:17 INDICATION: Thyroid cancer. TECHNIQUE: Multiple grayscale and Doppler ultrasound images of the neck were obtained. COMPARISON: CT neck 06/30/2022 FINDINGS: The thyroid is absent. There are normal lymph nodes in the neck. IMPRESSION: 1. No abnormal neck mass or lymphadenopathy. Reviewed, dictated and finalized at location B.
== END 2023-12-06 08:56 | disposition home or self-care (01) ==
PROVIDERS: PCP Physician Assistant; Visit Provider Internal Medicine
DX: E89.0 Postprocedural hypothyroidism (principal)
CPT/HCPCS: 76536

== ENCOUNTER 2024-01-24 08:00 | Outpatient (CLI) | payer BC, SELFPAY ==
[2024-01-24 08:59] LABS: Thyroid Stimulating Hormone 0.152 uIU/mL (0.465-4.680)
[2024-01-24 09:32] LABS: Free T4 Free Thyroxine 1.64 ng/dL (0.78-2.19)
== END 2024-01-24 08:01 | disposition home or self-care (01) ==
LOC: ANHLAB 08:01
PROVIDERS: PCP Physician Assistant; Visit Provider Internal Medicine
DX: C73 Malignant neoplasm of thyroid gland (principal)
CPT/HCPCS: 36415; 84439; 84443

== ENCOUNTER 2024-03-11 10:37 | Outpatient (CLI) | payer BC, SELFPAY ==
--- OUTSIDE RECORDS SUMMARY | 2024-03-11 11:10 | XMS_ITS ---
Author Organization [facility] Care Team Providers Care Creative Guru Name Role Phone Sergio Bush Primary Care Provider Mariusz Carr MD Unavailable [phone] Fernando Hernández MD PhD Unavailable [phone] Miguel Larkin MD Unavailable [phone] Active Problems Problem Noted Date Diagnosed Date Thyroid cancer 10/13/2022 Cancer Staging:Pathologic stage from 09/12/2022:Stage I(pT1a, pNX, cM0, Age at diagnosis: >= 55 years) - Signed by Jennie Zuleta PA on 03/20/2023 RLS (restless legs syndrome) 04/12/2020 Assessment & Plan (04/12/2020 9:38 AM BIOINFORMATICS ANALYST): Due to the patient stating that her restless legs are still bothering her at night, I have increased her Requip to 1 mg p.o. at bedtime. The patient will also continue with iron 325 mg daily as tolerated. IRISH (obstructive sleep apnea) 04/12/2020 Assessment & Plan (04/12/2020 9:37 AM BIOINFORMATICS ANALYST): The patient will continue with CPAP therapy at 9 cm water pressure to treat obstructive sleep apnea. Patient denied need for supplies. The [employer] company is [employer]. The patient is benefitting from CPAP therapy. Pain of hand 12/11/2014 Current Oncology Plans No current plan information found. Past Plans No past plan information found. Radiation Treatments * Plan Last Treated On Days Fractions Treated Prescribed Fraction Dose Prescribed Total Dose Thyroid 1 03/23/2023 0 1 30 cGy 30 cGy Reference Point Last Treated On Elapsed Days Session Dose Total Dose Thyroid 1 03/23/2023 0 30 cGy 30 cGy
--- OUTSIDE RECORDS SUMMARY | 2024-03-11 11:10 | XMS_ITS | Clinical Summary ---
Author Organization [facility] HealthCare Care Team Providers Care Division Traffic Superintendent Name Role Phone Sergio Bush Primary Care Provider Mariusz Carr MD Unavailable Fernando Hernández MD PhD Unavailable [phone] Miguel Larkin MD Unavailable [phone] Allergies Active Allergy Reactions Criticality Noted Date Comments Hydrocodone-Acetaminophen Vomiting Low 04/12/2020 Medications ferrous sulfate 325 mg (65 mg of elemental iron) tablet TK 1 T PO QD 0 Active omeprazole (PriLOSEC) 20 mg capsule Take 20 mg by mouth daily Active rOPINIRole (REQUIP) 0.5 mg tabletIndicatio ns:RLS (restless legs syndrome) Take 2 tablets (1 mg total) by mouth nightly 30 tablet 3 1 Active meloxicam (MOBIC) 15 mg tablet Take 1 tablet (15 mg total) by mouth daily with breakfast Take 1 daily with food 30 tablet 2 Active D3-2000 50 mcg (2,000 unit) capsule Take 1 capsule (2,000 Units total) by mouth daily Active diclofenac sodium (VOLTAREN) 1 % gel Apply topically Active Synthroid 150 mcg tablet Take 1 tablet (150 mcg total) by mouth daily Active terbinafine (LamiSIL) 250 mg tablet Take 1 tablet (250 mg total) by mouth daily 4 Active Active Problems Problem Noted Date Diagnosed Date Thyroid cancer 10/13/2022 Cancer Staging:Pathologic stage from 09/12/2022:Stage I(pT1a, pNX, cM0, Age at diagnosis: >= 55 years) - Signed by Jennie Zuleta PA on 03/20/2023 RLS (restless legs syndrome) 04/12/2020 Assessment & Plan (04/12/2020 9:38 AM SOUTH ASIAN HISTORY PROFESSOR): Due to the patient stating that her restless legs are still bothering her at night, I have increased her Requip to 1 mg p.o. at bedtime. The patient will also continue with iron 325 mg daily as tolerated. IRISH (obstructive sleep apnea) 04/12/2020 Assessment & Plan (04/12/2020 9:37 AM SOUTH ASIAN HISTORY PROFESSOR): The patient will continue with CPAP therapy at 9 cm water pressure to treat obstructive sleep apnea. Patient denied need for supplies. The DME company is [employer]. The patient is benefitting from CPAP therapy. Pain of hand 12/11/2014 Encounters Date Type Department Care Team Description 03/05/2024 Orders Only [facility] Radiation Oncology [address] [place] [address] Edenilson Valadez III, MD PhD Malignant neoplasm of thyroid gland (HCC) (Primary Dx) 02/01/2024 Telephone [facility] Radiation Oncology [address] [place] [address] [place], [place] Scheduling Appointments from Last 3 Months Immunizations Name Administration Dates Next Due Flucelvax Influenza Quad 11/22/2016 Influenza, Quadrivalent, Spl it, Preservative Free, Intramuscular 11/24/2019,11/22/2018,12/10/2017 Influenza, Trivalent, Preser vative Free, Intramuscular 11/25/2015,01/11/2015 Tdap 09/21/2010 Surgical History Surgery Date Site/Laterality Comments SECTION x3 CARPAL TUNNEL RELEASE Right ELBOW SURGERY Right TUBAL LIGATION Medical History Medical History Date Comments Sleep apnea, obstructive GERD (gastroesophageal reflux disease) Family History Medical History Relation Name Comments Cancer Father Family history of malignant neoplasm - (Added by TW Conv) Diabetes Father Family history of diabetes mellitus - (Added by TW Conv) Heart disease Mother Family history of cardiac disorder - (Added by TW Conv) Relation Name Status Comments Father Mother Social History Tobacco Use Types Packs/Day Years Used Date Smoking Tobacco: Never Smokeless Tobacco: Never Tobacco Cessation:Counseling Given: Not Answered Personal Safety Answer Date Recorded Getting School Help Needed Not on file 02/09 Comments Unknown Sex and Gender Information Value Date Recorded Sex Assigned at Not on file Legal Sex Female 10:11 PM SOUTH ASIAN HISTORY PROFESSOR Gender Identity Not on file Sexual Orientation Not on file Obstetrics History Last Filed Vital Signs Vital Sign Reading Time Taken Comments Blood Pressure 124/82 04/12/2020 9:18 AM SOUTH ASIAN HISTORY PROFESSOR Pulse 77 04/12/2020 9:18 AM SOUTH ASIAN HISTORY PROFESSOR Temperature 36.7 ??C (98 ??F) 04/12/2020 9:18 AM SOUTH ASIAN HISTORY PROFESSOR Respiratory Rate - - Oxygen Saturation 99% 04/12/2020 9:18 AM SOUTH ASIAN HISTORY PROFESSOR Inhaled Oxygen Concentration - - Weight 92.5 kg (204 lb) 09/25/2023 10:58 AM CDT Height 162.6 cm (5' 4 ) 09/25/2023 10:58 AM CDT Body Mass Index 35.02 09/25/2023 10:58 AM CDT Plan of Treatment Health Maintenance Due Date Last Done Comments Cervical Cancer Screening 1965 Colon Cancer Screening-Colonoscopy 1963 Depression Screening 1963 Hepatitis C Screening 1965 Pneumococcal vaccine <65 (1 of 2 - PCV) 06/28/1969 Hepatitis B Screening 06/28/1981 Regular Well Visit/Exam 18-64 06/28/1981 Zoster Vaccine (1 of 2) 06/28/1982 DTaP/Tdap/Td Vaccine (2 - Td or Tdap) 09/21/2020 09/21/2010 Breast Cancer Screening-Mammogram 02/02/2021 02/03/2020, 02/03/2020, 01/07/2019 Influenza Vaccine (#1) 2023 3, 11/24/2019, 11/22/2018, Additional history exists Insurance [facility] CHOICE PLUS [facility] HMO/PPO Address: [address] [address] [place] [address] [employer] [place] [employer] [place] [facility] CHOICE PLUS [facility] HMO/PPO Address: [address] [address] [place] [address] Care Teams Division Traffic Superintendent Relationship Specialty Start Date End Date Sergio Bush PA [address] [place], [place] [id number] PCP - General Physician Assistant Food Service Manager 09/17/19 Mariusz Carr MD [address] [place], [place] [id number] Referring Physician Internal Medicine 02/09/23 Fernando Hernández MD PhD [address] [place] [address] Radiation Oncologist Radiation Oncology 03/20/23 Miguel Larkin MD [address] [facility] OTOLARY[facility]OLOGY, [address] [place] [id number] Referring Physician Otolaryngology 03/20/23
--- OUTSIDE RECORDS SUMMARY | 2024-03-11 11:10 | XMS_ITS | Clinical Summary ---
Author Organization [facility] [employer] Address [address] [place] [address] Care Team Providers Care Clear Coat Sprayer Name Role Phone Sergio Bush PA-C Primary Care Provide r Source Comments [facility] [employer],non-owned Affiliates and Associated Physician Practices is amultiple site organization consisting of ambulatory clinics and hospital sitesin [place], [place], [place] and [place]. This disclosure is being madepursuant to the Care Everywhere program and may not contain all information available regarding this patient. Last updated 17.[facility] [employer] Allergies Active Allergy Reactions Criticality Noted Date Comments Hydrocodone-Acetaminophen Nausea and/or Vomiting,Vomiting Low 04/12/2020 Medications * Be aware that medications may not be up to date on this document. Alwaysverify current medications with the patient. Medication Sig Dispensed Refills Start Date End Date Status FeroSul 325 (65 Fe) MG tablet Take 1 (one) tablet by mouth once daily 05/16/2022 Active omeprazole (PriLOSEC) 20 MG capsule Take 1 (one) capsule by mouth once daily Active Vitamin D3 (Cholecalciferol) 50 MCG (1999 UT) capsule Take 1 (one) capsule by mouth once daily Active diclofenac sodium (Voltaren) 1 % gel Apply to affected area 4 times daily Active levothyroxine (Synthroid) 112 MCG tablet Take 1 (one) tablet by mouth once daily 60 tablet 01/03/2023 Active terbinafine (LamISIL) 250 MG tablet Take 1 (one) tablet by mouth once daily 10/17/2023 Active Synthroid 150 MCG tablet Take 1 (one) tablet by mouth once daily Active Active Problems Problem Noted Date Diagnosed Date Thyroid cancer 10/13/2022 Thyroid nodule 09/12/2022 Immunizations Name Administration Dates Next Due FLU VACCINE QUAD IIV4 SPLIT 0.25 ML IM INFLUENZA VACCINE, CELL CULT URE, QUADR. (FLUCELVAX QUADRIVALENT; 6MO+) (CCIIV4) 11/22/2016 INFLUENZA VACCINE, QUADR. (F LUZONE; FLULAVAL; FLUARIX; AFLURIA QUADRIVALENT; 6MO+), 0.5 ML (IIV4) 11/24/2019,11/22/2018,12/10/2017 INFLUENZA VACCINE, TRIV. (FL UZONE; FLULAVAL; FLUARIX; AFLURIA TRIVALENT; 6MO+), 0.5 ML (IIV3) 11/25/2015,01/11/2015 TDAP, HISTORIC VACCINE 09/21/2010 Family History Medical History Relation Name Comments Arthritis - Rheumatoid Father Arthritis - Rheumatoid Mother Relation Name Status Comments Father Mother Social History Tobacco Use Types Packs/Day Years Used Date Smoking Tobacco: Never Smokeless Tobacco: Never Tobacco Cessation:Counseling Given: Not Answered Alcohol Use Standard Drinks/Week Comments Yes 1 (1 standard drink = 0.6 oz pur e alcohol) occasionally AUDIT-C Answer Date Recorded Q1: How often do you have a drink containing alc ohol? Monthly or less 01/01/2023 Q2: How many drinks containi ng alcohol do you have on a typical day when you are drinking? 1 or 2 01/01/2023 Q3: How often do you have si x or more drinks on one occasion? Never 01/01/2023 Sex and Gender Information Value Date Recorded Sex Assigned at Not on file Gender Identity Not on file Sexual Orientation Not on file Last Filed Vital Signs Vital Sign Reading Time Taken Comments Blood Pressure 137/87 10/19/2023 9:44 AM CDT Pulse 99 10/19/2023 9:44 AM CDT Temperature 36.7 ??C (98.1 ??F) 01/02/2023 7:06 AM CS T Respiratory Rate 18 01/02/2023 7:06 AM RESOLUTION MANAGER Oxygen Saturation 98% 01/02/2023 7:06 AM RESOLUTION MANAGER Inhaled Oxygen Concentration - - Weight 88.5 kg (195 lb) 10/19/2023 9:44 AM CDT Height 162.6 cm (5' 4 ) 10/19/2023 9:44 AM CDT Body Mass Index 33.47 10/19/2023 9:44 AM CDT Plan of Treatment Upcoming Encounters Date Type Department Care Team (Late st Contact Info) Description 10/24/2024 9:45 AM CDT Office Visit [facility] - ENT [address] [facility] [facility], [place] [address] Miguel Larkin MD [facility] [place] [address] Health Maintenance Due Date Last Done Comments COLOGUARD (AGES 45-75) - COLON CA SCREENING 1963 COLON MONITORING 1963 COLONOSCOPY - COLON CA SCREENING 1963 CT COLONOGRAPHY - COLON CA SCREENING 1963 Colorectal Cancer Screening 1963 FIT - COLON CA SCREENING 1963 FLEX SIG - COLON CA SCREENING 1963 LIPID TESTING 1963 PAP SMEAR 1963 HIV SCREENING 06/28/1978 HEPATITIS C SCREENING 06/24/1981 PNEUMOCOCCAL VACCINE 50+ (1 of 1 - PCV) 06/28/2013 ZOSTER VACCINE (1 of 2) 06/28/2013 DTAP/TDAP/TD VACCINES (2 - Td or Tdap) 09/21/2020 09/21/2010 MAMMOGRAM 02/02/2022 02/03/2020, 01/07/2019 COVID-19 VACCINE ( - season) 2023 INFLUENZA VACCINE (#1) 2023 3, 11/24/2019, 11/22/2018, Additional history exists DEPRESSION SCREENING 02/06/2024 SCREENING FOR DIABETES 01/02/2026 3, 01/01/2023, 11/17/2022, Additional history exists Respiratory Syncytial Virus (RSV) Vaccine Pt: or over 60 yrs (1 - 1-dose 75+ series) 06/28/2038 HEPATITIS B VACCINE Aged Out No longe r eligible based on patient's age to complete this topic HIB VACCINE Aged Out No longer eligi ble based on patient's age to complete this topic HPV VACCINE Aged Out No longer eligi ble based on patient's age to complete this topic MENINGOCOCCAL (Group B) VACCINE Aged Out No longer eligible based on patient's age to complete this topic MENINGOCOCCAL VACCINE Aged Out No jani roger eligible based on patient's age to complete this topic PNEUMOCOCCAL VACCINE Aged Out No long er eligible based on patient's age to complete this topic Procedures Procedure Name Priority Date/Time Associated Diagnosis Comments BASIC METABOLIC PANEL (CALCIUM TOTAL) Routine 01/02/2023 1:23 AM RESOLUTION MANAGER Thyroid cancer (HCC) from Last 3 Months or Most Recently Relevant to Health Maintenance Results * (ABNORMAL) BASIC METABOLIC PANEL (CALCIUM TOTAL) (01/02/2023 1:23 AM RESOLUTION MANAGER) BUN 9 7 - 26 mg/dL 01/02/2023 2:04 AM [facility] Creatinine 0.69 0.56 - 0.96 mg/dL 01/02/2023 2:04 AM [facility] Sodium 137 136 - 145 mmol/L 01/02/2023 2:04 AM [facility] Potassium 3.7 3.5 - 4.5 mmol/L 01/02/2023 2:04 AM [facility] Chloride 105 98 - 107 mmol/L 01/02/2023 2:04 AM [facility] CO2 24 22 - 29 mmol/L 01/02/2023 2:04 AM [facility] Glucose 116(H) 70 - 115 mg/dL 01/02/2023 2:04 AM [facility] Calcium 8.7 8.4 - 10.2 mg/dL 01/02/2023 2:04 AM [facility] Anion Gap 8 6 - 16 01/02/2023 2:04 AM [facility] BUN/Creatinine Ratio 13 7 - 23 01/02/2023 2:04 AM [facility] Osmolality Calculated 284 275 - 295 mOsm/kg 01/02/2023 2:04 AM [facility] eGFR by CKD-EPI >90 >=90 mL/min/1.7 3 m2 01/02/2023 2:04 AM [facility] Blood BLOOD SPECIMEN / Unknown Lab Venipuncture / Unknown 01/02/2023 1:23 AM RESOLUTION MANAGER 01/02/2023 1:34 AM RESOLUTION MANAGER Miguel Larkin MD LAB - CHEMISTRY ZULEYMA RODRIGUEZ [facility] [address] [place] [address], [facility] [phone] from Last 3 Months or Most Recently Relevant to Health Maintenance Advance Directives * Full Code (Latest Code Status on File) Date Activated Date Inactivated Comments 01/01/2023 11:06 AM 01/02/2023 10:25 AM * Full Code Date Activated Date Inactivated Comments 09/12/2022 10:34 AM 09/13/2022 11:54 AM Care Teams Clear Coat Sprayer Relationship Specialty Start Date End Date Sergio Bush PA-C [address] [place] [address] PCP - General Physician Admissions Director 08/30/22
--- OUTSIDE RECORDS SUMMARY | 2024-03-11 11:10 | XMS_ITS | Referral Summary ---
Author Organization [facility] HealthCare Care Team Providers Care Bookkeeping Teacher Name Role Phone Sergio Bush Primary Care Provider Mariusz Carr MD Unavailable [phone] Fernando Hernández MD PhD Unavailable [phone] Miguel Larkin MD Unavailable [phone] Encounters Date Type Department Care Team Description 03/05/2024 Orders Only [facility] Radiation Oncology [address] [place] [address] Edenilson Valadez III, MD PhD Malignant neoplasm of thyroid gland (HCC) (Primary Dx) 02/01/2024 Telephone [facility] Radiation Oncology [address] [place] [address] Zulema Mayorga MA Scheduling Appointments from Last 3 Months Allergies Active Allergy Reactions Criticality Noted Date Comments Hydrocodone-Acetaminophen Vomiting Low 04/12/2020 Medications ferrous sulfate 325 mg (65 mg of elemental iron) tablet TK 1 T PO QD 0 Active omeprazole (PriLOSEC) 20 mg capsule Take 20 mg by mouth daily Active rOPINIRole (REQUIP) 0.5 mg tabletIndicatio ns:RLS (restless legs syndrome) Take 2 tablets (1 mg total) by mouth nightly 30 tablet 3 Active meloxicam (MOBIC) 15 mg tablet Take [...] 04/12/2020 Assessment & Plan (04/12/2020 9:38 AM LANDSCAPE ARCHITECTURE PROFESSOR): Due to the patient stating that her restless legs are still bothering her at night, I have increased her Requip to 1 mg p.o. at bedtime. The patient will also continue with iron 325 mg daily as tolerated. IRISH (obstructive sleep apnea) 04/12/2020 Assessment & Plan (04/12/2020 9:37 AM LANDSCAPE ARCHITECTURE PROFESSOR): The patient will continue with CPAP therapy at 9 cm water pressure to treat obstructive sleep apnea. Patient denied need for supplies. The DME company is [employer]. The patient is benefitting from CPAP therapy. Pain of hand 12/11/2014 Immunizations Name Administration Dates Next Due Flucelvax Influenza Quad 11/22/2016 Influenza, Quadrivalent, Spl it, Preservative Free, Intramuscular 11/24/2019,11/22/2018,12/10/2017 Influenza, Trivalent, Preser vative Free, Intramuscular 11/25/2015,01/11/2015 Tdap 09/21/2010 Social History Tobacco Use Types Packs/Day Years Used Date Smoking Tobacco: Never Smokeless Tobacco: Never Tobacco Cessation:Counseling Given: Not Answered Personal Safety Answer Date Recorded Getting School Help Needed Not on file 02/09 Comments Unknown Sex and Gender Information Value Date Recorded Sex Assigned at Not on file Legal Sex Female 10:11 PM LANDSCAPE ARCHITECTURE PROFESSOR Gender Identity Not on file Sexual Orientation Not on file Last Filed Vital Signs Vital Sign Reading Time Taken Comments Blood Pressure 124/82 04/12/2020 9:18 AM LANDSCAPE ARCHITECTURE PROFESSOR Pulse 77 04/12/2020 9:18 AM LANDSCAPE ARCHITECTURE PROFESSOR Temperature 36.7 ??C (98 ??F) 04/12/2020 9:18 AM LANDSCAPE ARCHITECTURE PROFESSOR Respiratory Rate - - Oxygen Saturation 99% 04/12/2020 9:18 AM LANDSCAPE ARCHITECTURE PROFESSOR Inhaled Oxygen Concentration - - Weight 92.5 kg (204 lb) 09/25/2023 10:58 AM CDT Height 162.6 cm (5' 4 ) 09/25/2023 10:58 AM CDT Body Mass Index 35.02 09/25/2023 10:58 AM CDT Plan of Treatment Not on file Insurance [facility] CHOICE PLUS [employer] [facility] [place] [address] [place] [address] CHOICE PLUS Care Teams Bookkeeping Teacher Relationship Specialty Start Date End Date Sergio Bush PA [address] [facility] [address] [place], [place] [id number] PCP - General Physician Naval Aircrewman Operator 09/17/19 Mariusz Carr MD [address] [facility] [address] [place], [place] [phone] Referring Physician Internal Medicine 02/09/23 Fernando Hernández MD PhD [address] [place] [address] Radiation Oncologist Radiation Oncology 03/20/23 Miguel Larkin MD [address] [facility] DEPT OTOLARYNGOLOGY, [address] [place] [address] Referring Physician Otolaryngology 03/20/23
--- OUTSIDE RECORDS SUMMARY | 2024-03-11 11:10 | XMS_ITS | Clinical Summary ---
Author Organization [employer] [facility] [address] [facility] Address [address] [place] [address] Care Team Providers Care Pathology Laboratory Technologist Name Role Phone Dwayne Chandler DO Primary Care Provider [phone] Allergies Active Allergy Reactions Criticality Noted Date Comments Hydrocodone-Acetaminophen Nausea and Vomiting Low 0 04/12/2020 Medications omeprazole (PriLOSEC) 20 mg Capsule, Delayed Release(E.C.) Take 20 mg by mouth daily. Active FeroSuL 325 mg (65 mg iron) tablet Take 325 mg by mouth daily. 11/19/2020 Active Cholecalciferol , Vitamin D3, 50 mcg (2,000 unit) Capsule Take 2,000 Units by mouth daily. Active diclofenac sodium (VOLTAREN) 1 % gel Apply to affected area. Active levothyroxine 150 mcg tablet Take 150 mcg by mouth daily in the morning. Active Active Problems No known active problems Encounters Date Type Department Care Team Description 02/19/2024 External Device Data [facility] ABSTRACTION Provider, Abstract 12/10/2023 External Device Data [facility] ABSTRACTION Provider, Abstract from Last 3 Months Family History Medical History Relation Name Comments Cancer Father Lung Diabetes Father Heart Disease Maternal Grandmother Heart Disease Mother Heart Disease Paternal Grandmother Relation Name Status Comments Father Maternal Grandmother Mother Paternal Grandmother Social History Tobacco Use Types Packs/Day Years Used Date Smoking Tobacco: Never Tobacco Cessation:Counseling Given: Not Answered Comments No Sex and Gender Information Value Date Recorded Sex Assigned at Not on file Legal Sex Female 11:11 PM CDT Gender Identity Not on file Sexual Orientation Not on file Last Filed Vital Signs Vital Sign Reading Time Taken Comments Blood Pressure 132/82 03/01/2023 9:40 AM TECHNICAL BUSINESS SYSTEMS ANALYST Pulse - - Temperature 37 ??C (98.6 ??F) 01/27/2020 9:49 AM TECHNICAL BUSINESS SYSTEMS ANALYST Respiratory Rate - - Oxygen Saturation - - Inhaled Oxygen Concentration - - Weight 92.7 kg (204 lb 6.4 oz) 03/01/2023 9:40 A M TECHNICAL BUSINESS SYSTEMS ANALYST Height 162.6 cm (5' 4 ) 02/08/2022 9:09 AM TECHNICAL BUSINESS SYSTEMS ANALYST Body Mass Index 35.09 02/08/2022 9:09 AM TECHNICAL BUSINESS SYSTEMS ANALYST Plan of Treatment Upcoming Encounters Date Type Department Care Team (Late st Contact Info) Description 03/19/2024 9:00 AM TECHNICAL BUSINESS SYSTEMS ANALYST Office Visit [facility] - [address] [place] [id number] [place] [address] [address] [place] [address] [place] [address] [facility] [address] [place] [address] Health Maintenance Due Date Last Done Comments Pre-Diabetes and Diabetes Screening 1965 COLORECTAL SCREENING 06/28/2008 Colorectal Cancer Screening 06/28/2008 FIT-DNA Q 3 years 06/28/2008 FIT/FOBT Q 1 year 06/28/2008 Flex Sig/CT Colonography Q 5 years 06/28/2008 ZOSTER VACCINE (1 of 2) 06/28/2013 DTAP/TDAP/TD VACCINES (2 - Td or Tdap) 09/21/2020 09/21/2010 BREAST CANCER SCREENING 02/02/2021 02/03/2020, 01/07 INFLUENZA VACCINE (#1) 2023 , 11/22/2018, 12/10/2017, Additional history exists Preventative Visit- Commercial 02/06/2024 03/01/2023, 02/08/2022, 02/01/2021, Additional history exists CERVICAL CANCER SCREENING 02/08/20252022, 08/19/2018, 08/16/2017 (Previously completed) RSV VACCINE (60+ or ) (1 - 1-dose 75+ series) 06/28/2038 HEPATITIS B VACCINES Aged Out No long er eligible based on patient's age to complete this topic Procedures Procedure Name Priority Date/Time Associated Diagnosis Comments CERV/VAG CYTO AGE BASED SCREEN PAP Routine 02/08/2022 9:37 AM TECHNICAL BUSINESS SYSTEMS ANALYST Well woman exam with routine gynecological exam MAMMO SCREEN BILAT W OR WO CAD Routine 02/03/2020 Breast cancer screening by mammogram from Last 3 Months or Most Recently Relevant to Health Maintenance Results * CERV/VAG CYTO AGE BASED SCREEN PAP (02/08/2022 9:37 AM TECHNICAL BUSINESS SYSTEMS ANALYST) COMMENT (PAP): [facility] [place] Comment: This order for age-based cervical cancer and STI screening follows ACOG guidelines(PB 168, 140, AHC597). See individual assays for performing site location. CLINICAL INFORMATION [facility] [place] Comment:None given LAST MENSTRUAL PERIOD [email or web address] [place] Comment:NONE GIVEN PREV PAP: [email or web address] [place] Comment:NONE GIVEN PREV BX: [email or web address] [place] Comment:NONE GIVEN SOURCE [email or web address] [place] Comment:Endocervix ADEQUACY: [email or web address] [place] Comment: Satisfactory for evaluation. Endocervical/transformation zone component present. Age and/or menstrual status not provided PAP INTERP [facility] [place] Comment:Negative for intraep ithelial lesion or malignancy. COMMENT (PAP TEST) [facility] [employer] [facility] [place] Comment: This Pap test has been evaluated with computer assisted technology. ABRADING MACHINE TENDER: Jonnathan est Stacy- [place] Comment: MMW, CT(ASCP) CT screening location: [place] [address] [place] [address] EXPLANATORY NOTE Que scroll kit- [place] Comment: EXPLANATORY NOTE: The Pap is a screening test for cervical cancer. It is not a diagnostic test and is subject to false negative and false positive results. It is most reliable when a satisfactory sample, regularly obtained, is submitted with relevant clinical findings and history, and when the Pap result is evaluated along with historic and current clinical information. HPV E6/E7 Not Detected Not Detected [facility] [place] Comment: Methodology: Director Of Collections And Archives-Mediated Amplification This assay detects E6/E7 viral messenger RNA (mRNA) from 14 high-risk HPV types (16,18,31,33,35,39,45,51,52,56,58,59,66,68). Cervical sources are required for HPV testing. If a vaginal source from a patient who has had a total hysterectomy with removal of cervix was submitted, please contact the testing laboratory for alternative testing options. For additional information, please refer to http://education.[employer].com/faq/VUN712q5 (This link if provided for information/ educational purposes only.) [facility]: [facility] [address] [place] ??[phone] Mitch Silva D.O., MPH SL Genital SWAB OF ENDOCERVIX / Unknown 02/08/2022 9:37 AM TECHNICAL BUSINESS SYSTEMS ANALYST 02/08/2022 11:08 PM TECHNICAL BUSINESS SYSTEMS ANALYST Caprice Saldivar DO PATHOLOGY/CYTOLOGY ORDERABL ES Final Result [facility] [phone] [facility] [address] [place] [address] * MAMMO SCREEN BILAT W OR WO CAD (02/03/2020) Anatomical Region Laterality Modality Breast Bilateral Other Caprice Saldivar DO MAMMO ORDERABLES Final Resu lt from Last 3 Months or Most Recently Relevant to Health Maintenance Insurance [facility] BLUE OPT[employer] Care Teams Pathology Laboratory Technologist Relationship Specialty Start Date End Date Dwayne Chandler DO [address] [facility] [[email or web address] [address] [place] [address] PCP - General Internal Medicine 01/27/20
--- OUTSIDE RECORDS SUMMARY | 2024-03-11 11:10 | XMS_ITS | Referral Summary ---
Author Organization [facility] Address [address] [facility] [place] [address] Care Team Providers Care Barrel Maker Name Role Phone Sergio Bush PA-C Primary Care Provide r Source Comments [facility],non-owned Affiliates and Associated Physician Practices is amultiple site organization consisting of ambulatory clinics and hospital sitesin [place], [place], [place] and [place]. This disclosure is being madepursuant to the Care Everywhere program and may not contain all information available regarding this patient. 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 No 01/01/2023 Is person blind or have serious difficulty seein g? No 01/01/2023 Does person have serious dif ficulty walking/climbing stairs? No 01/01/2023 Does person have difficulty dressing/bathing? No 01/01/2023 Does person have difficulty doing errands alone? No 01/01/2023 Cognitive Status Response Date of Assessm ent Does person have difficulty concentrating/remembering/making decisions? 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 Thyroid cancer (HCC) from Last 3 Months or Most Recently Relevant to Health Maintenance Results * (ABNORMAL) BASIC METABOLIC PANEL (CALCIUM TOTAL) (01/02/2023 1:23 AM FILM VAULT SUPERVISOR) BUN 9 7 - 26 mg/dL 01/02/2023 2:04 AM [facility] Creatinine 0.69 0.56 - 0.96 mg/dL 01/02/2023 2:04 AM [facility] Sodium 137 136 - 145 mmol/L 01/02/2023 2:04 AM [facility] Potassium 3.7 3.5 - 4.5 mmol/L 01/02/2023 2:04 AM [facility] Chloride 105 98 - 107 mmol/L 01/02/2023 2:04 AM [facility] CO2 24 22 - 29 mmol/L 01/02/2023 2:04 AM [facility] Glucose 116(H) 70 - 115 mg/dL 01/02/2023 2:04 AM [facility] Calcium 8.7 8.4 - 10.2 mg/dL 01/02/2023 2:04 AM [facility] Anion Gap 8 6 - 16 01/02/2023 2:04 AM [facility] BUN/Creatinine Ratio 13 7 - 23 01/02/2023 2:04 AM [facility] Osmolality Calculated 284 275 - 295 mOsm/kg 01/02/2023 2:04 AM [facility] eGFR by CKD-EPI >90 >=90 mL/min/1.7 3 m2 01/02/2023 2:04 AM [facility] Blood BLOOD SPECIMEN / Unknown Lab Venipuncture / Unknown 01/02/2023 1:23 AM FILM VAULT SUPERVISOR 01/02/2023 1:34 AM [facility] Miguel Larkin MD LAB - CHEMISTRY ZULEYMA RODRIGUEZ [facility] Organization Address City/[facility] Co de Phone Number [facility] [address] [place] [address], [facility] [phone] from Last 3 Months or Most Recently Relevant to Health Maintenance Advance Directives * Full Code (Latest Code Status on File) Date Activated Date Inactivated Comments 01/01/2023 11:06 AM 01/02/2023 10:25 AM * Full Code Date Activated Date Inactivated Comments 09/12/2022 10:34 AM 09/13/2022 11:54 AM Care Teams Barrel Maker Relationship Specialty Start Date End Date Sergio Bush PA-C [address] [place] [address] PCP - General Physician Thermostat Mechanic 08/30/22
--- OUTSIDE RECORDS SUMMARY | 2024-03-11 11:11 | XMS_ITS | Patient Health Summary ---
Author Organization [facility] Address [address] [place] [address] Care Team Providers Care Molecular Geneticist Name Role Phone Sergio Bush PA-C Primary Care Provide r Note from [facility],non-owned Affiliates and Associated Physician Practices is amultiple site organization consisting of ambulatory clinics and hospital sitesin [place], [place], [place] and [place]. This disclosure is being madepursuant to the Care Everywhere program and may not contain all information available regarding this patient. Last updated 17.[facility] Allergies * Hydrocodone-Acetaminophen(Nausea and/or Vomiting,Vomiting) -Low Criticality Medications * Be aware that medications may not be up to date on this document. Alwaysverify current medications with the patient. * FeroSul 325 (65 Fe) MG tablet(Started 05/16/2022) Take 1 (one) tablet by mouth once daily * omeprazole (PriLOSEC) 20 MG capsule Take 1 (one) capsule by mouth once daily * Vitamin D3 (Cholecalciferol) 50 MCG (1999 UT) capsule Take 1 (one) capsule by mouth once daily * diclofenac sodium (Voltaren) 1 % gel Apply to affected area 4 times daily * levothyroxine (Synthroid) 112 MCG tablet(Started 01/03/2023) Take 1 (one) tablet by mouth once daily * terbinafine (LamISIL) 250 MG tablet(Started 10/17/2023) Take 1 (one) tablet by mouth once daily * Synthroid 150 MCG tablet Take 1 (one) tablet by mouth once daily Active Problems Problem Noted Date Diagnosed Date Thyroid cancer 10/13/2022 Thyroid nodule 09/12/2022 Immunizations * FLU VACCINE QUAD IIV4 SPLIT 0.25 ML IM(Given 11/05/2022) * INFLUENZA VACCINE, CELL CULTURE, QUADR. (FLUCELVAX QUADRIVALENT; 6MO+) (CCIIV4)(Given 11/22/2016) * INFLUENZA VACCINE, QUADR. (FLUZONE; FLULAVAL; FLUARIX; AFLURIA QUADRIVALENT; 6MO+), 0.5 ML (IIV4)(Given 11/24/2019, 11/22/2018, 12/10/2017) * INFLUENZA VACCINE, TRIV. (FLUZONE; FLULAVAL; FLUARIX; AFLURIA TRIVALENT; 6MO+), 0.5 ML (IIV3)(Given 11/25/2015, 01/11/2015) * TDAP, HISTORIC VACCINE(Given 09/21/2010) Social History Tobacco Use Types Packs/Day Years [...] T Respiratory Rate 18 01/02/2023 7:[address] Oxygen Saturation 98% 01/02/2023 7:[address] Inhaled Oxygen Concentration - - Weight 88.5 kg (195 lb) 10/19/2023 9:44 AM CDT Height 162.6 cm (5' 4 ) 10/19/2023 9:44 AM CDT Body Mass Index 33.47 10/19/2023 9:44 AM CDT Procedures * PHOSPHORUS BLOOD(Performed 01/02/2023) Performed for Thyroid cancer (HCC) * MAGNESIUM BLOOD(Performed 01/02/2023) Performed for Thyroid cancer (HCC) * CBC W AUTO DIFFERENTIAL(Performed 01/02/2023) Performed for Thyroid cancer (HCC) * BASIC METABOLIC PANEL (CALCIUM TOTAL)(Performed 01/02/2023) Performed for Thyroid cancer (HCC) * MAGNESIUM BLOOD(Performed 01/01/2023) Performed for Thyroid cancer (HCC) * BASIC METABOLIC PANEL (CALCIUM TOTAL)(Performed 01/01/2023) Performed for Thyroid cancer (HCC) * ALBUMIN BLOOD(Performed 01/01/2023) Performed for Thyroid cancer (HCC) * PTH INTACT W/O CALCIUM(Performed 01/01/2023) Performed for Thyroid cancer (HCC) * PATHOLOGY TISSUE(Performed 01/01/2023) Performed for Thyroid nodule * MA THYROIDECTOMY,MALIG,LTD NECK SURG(Performed 01/01/2023) Performed for Thyroid nodule * ENDOTRACHEAL TUBE NOTE(Performed 01/01/2023) * TYPE + SCREEN PANEL(Performed 01/01/2023) Performed for Pre-op evaluation * PT-INR [facility](Performed 11/17/2022) * COMPREHENSIVE METABOLIC PANEL(Performed 11/17/2022) * CBC W AUTO DIFFERENTIAL(Performed 11/17/2022) * MA LARYNGOSCOPY,FLEX FIBER,DIAGNOSTIC(Performed 11/17/2022) Performed for Vocal cord paralysis * MA LARYNGOSCOPY,FLEX FIBER,DIAGNOSTIC(Performed 10/13/2022) Performed for Thyroid nodule, Change in voice, Dysphonia * MA LARYNGOSCOPY,FLEX FIBER,DIAGNOSTIC(Performed 09/13/2022) Performed for Dysphonia * PATHOLOGY TISSUE(Performed 09/12/2022) Performed for Thyroid nodule * PERIPHERAL IV NOTE(Performed 09/12/2022) * ENDOTRACHEAL TUBE NOTE(Performed 09/12/2022) * THYROIDECTOMY PARTIAL LOBECTOMY(Performed 09/12/2022) Performed for Thyroid nodule * TYPE + SCREEN PANEL(Performed 09/12/2022) Performed for Pre-op exam * HCG URINE QUALITATIVE - POCT (IP) INTERFACED(Performed 09/12/2022) * HCG URINE QUAL POCT NOTIFICATION(Performed 09/12/2022) Performed for Pre-op exam * TYPE + SCREEN PANEL(Performed 08/30/2022) Performed for Pre-op examination * CBC W/O DIFFERENTIAL(Performed 08/30/2022) Performed for Pre-op examination * BASIC METABOLIC PANEL (CALCIUM TOTAL)(Performed 08/30/2022) Performed for Pre-op examination * MA LARYNGOSCOPY,FLEX FIBER,DIAGNOSTIC(Performed 08/11/2022) Performed for Thyroid nodule, Change in voice Results * (ABNORMAL) CBC W AUTO DIFFERENTIAL (01/02/2023 1:23 AM [facility]) Only the most recent of2 resultswithin the time period is included. WBC 10.5 3.5 - 10.5 10? 3 /uL 01/02/2023 1:51 AM [facility] RBC 3.80 3.80 - 5.20 10? 6 /uL 01/02/2023 1:51 AM [facility] Hemoglobin 12.4 12.0 - 15.6 g/dL 01/02/2023 1:51 AM [facility] Hematocrit 35.7 35.0 - 45.0 % 01/02/2023 1:51 AM [facility] MCV 93.9 80.7 - 98.3 fL 01/02/2023 1:51 AM [facility] MCH 32.6 26.7 - 34.0 pg 01/02/2023 1:51 AM [facility] MCHC 34.7 30.8 - 35.9 g/dL 01/02/2023 1:51 AM [facility] RDW-SD 42.5 36.0 - 50.0 fL 01/02/2023 1:51 AM [facility] RDW-CV 12.2 11.2 - 14.8 % 01/02/2023 1:51 AM [facility] Platelet Count 270 150 - 400 10? 3 /uL 01/02/2023 1:51 AM [facility] MPV 10.0 9.4 - 12.9 fL 01/02/2023 1:51 AM [facility] nRBC Absolute 0.00 0 10? 3 /uL 01/02/2023 1:51 AM [facility] nRBC Auto 0.0 0 /100 WBC 01/02/2023 1:51 AM [facility] Neutrophils % 68.3 35.0 - 70.0 % 01/02/2023 1:51 AM [facility] Lymphocytes % 20.1 20.0 - 43.0 % 01/02/2023 1:51 AM [facility] Monocytes % 10.9 5.0 - 13.0 % 01/02/2023 1:51 AM [facility] Eosinophils % 0.1 0.0 - 6.0 % 01/02/2023 1:51 AM [facility] Basophil % 0.2 0.0 - 2.0 % 01/02/2023 1:51 AM [facility] Neutrophils Absolute 7.18(H) 1.60 - 7.00 10? 3 /uL 01/02/2023 1:51 AM [facility] Lymphocyte Absolute 2.11 1.10 - 3.90 10? 3 /uL 01/02/2023 1:51 AM [facility] Monocytes Absolute 1.14(H) 0.26 - 1.07 10? 3 /uL 01/02/2023 1:51 AM [facility] Eosinophils Absolute 0.01 0.00 - 0.47 10? 3 /uL 01/02/2023 1:51 AM [facility] Basophils Absolute 0.02 0.00 - 0.08 10? 3 /uL 01/02/2023 1:51 AM [facility] Immature Granulocytes % 0.4 0.0 - 1.0 % 01/02/2023 1:51 AM [facility] Immature Granulocytes Absolute 0.04 01/02/2023 1:51 AM [facility] Blood BLOOD SPECIMEN / Unknown Lab Venipuncture / Unknown 01/02/2023 1:[address] 01/02/2023 1:34 AM [facility] Miguel Larkin MD LAB - HEMATOLOGY ORD ERABLES [facility] [address] [place] [address], [place] [phone] * (ABNORMAL) BASIC METABOLIC PANEL (CALCIUM TOTAL) (01/02/2023 1:23 AM [facility]) Only the most recent of3 resultswithin the time period is included. BUN 9 7 - 26 mg/dL 01/02/2023 2:04 AM [facility] Creatinine 0.69 0.56 - 0.96 mg/dL 01/02/2023 2:04 AM [facility] Sodium 137 136 - 145 mmol/L 01/02/2023 2:04 AM [facility] Potassium 3.7 3.5 - 4.5 mmol/L 01/02/2023 2:04 AM [facility] Chloride 105 98 - 107 mmol/L 01/02/2023 2:04 AM [facility] CO2 24 22 - 29 mmol/L 01/02/2023 2:04 AM [facility] Glucose 116(H) 70 - 115 mg/dL 01/02/2023 2:04 AM [facility] Calcium 8.7 8.4 - 10.2 mg/dL 01/02/2023 2:04 AM [facility] Anion Gap 8 6 - 16 01/02/2023 2:04 AM [facility] BUN/Creatinine Ratio 13 7 - 23 01/02/2023 2:04 AM [facility] Osmolality Calculated 284 275 - 295 mOsm/kg 01/02/2023 2:04 AM [facility] eGFR by CKD-EPI >90 >=90 mL/min/1.7 3 m2 01/02/2023 2:04 AM [facility] Blood BLOOD SPECIMEN / Unknown Lab Venipuncture / Unknown 01/02/2023 1:[address] 01/02/2023 1:34 AM [facility] Miguel Larkin MD LAB - CHEMISTRY ORDE JENNIFER [facility] [address] [place] [address], [place] [phone] * PHOSPHORUS BLOOD (01/02/2023 1:23 AM [facility]) Phosphorus 3.4 2.9 - 5.1 mg/dL 01/02/2023 2:04 AM [facility] Blood BLOOD SPECIMEN / Unknown Lab Venipuncture / Unknown 01/02/2023 1:[address] 01/02/2023 1:[address] Miguel Larkin MD LAB - CHEMISTRY ZULEYMA RODRIGUEZ Performing Organization Address City/[facility]/ZIP Co de Phone Number [address] [address], [place] [phone] * MAGNESIUM BLOOD (01/02/2023 1:[address]) Only the most recent of2 resultswithin the time period is included. Magnesium 1.8 1.6 - 2.6 mg/dL 01/02/2023 2:[address] [facility] Blood BLOOD SPECIMEN / Unknown Lab Venipuncture / Unknown 01/02/2023 1:[address] 01/02/2023 1:[address] iMguel Larkin MD LAB - CHEMISTRY ZULEYMA RODRIGUEZ Performing Organization Address [facility] Co de Phone Number [address] [address], [place] [phone] * PTH INTACT W/O CALCIUM (01/01/2023 9:[address]) PTH Intact 23.8 8.0 - 77.0 pg/mL 01/01/2023 10:[address] [facility] Blood BLOOD SPECIMEN / Unknown Venipuncture / Unknown 01/01/2023 9:[address] 01/01/2023 9:[address] Miguel Larkin MD LAB - CHEMISTRY ZULEYMA RODRIGUEZ Performing Organization Address City/[facility]/ZIP Co de Phone Number [address] [address], [place] [phone] * ALBUMIN BLOOD (01/01/2023 9:[address]) Albumin 3.6 3.4 - 5.0 g/dL 01/01/2023 10:[address] [facility] Blood BLOOD SPECIMEN / Unknown Venipuncture / Unknown 01/01/2023 9:[address] 01/01/2023 9:[address] Miguel Larkin MD LAB - CHEMISTRY ZULEYMA RODRIGUEZ [facility] [address] [place] [address], [place] [phone] * PATHOLOGY TISSUE (01/01/2023 8:[address]) Only the most recent of2 resultswithin the time period is included. Case Report Surgical Pathology Report ? Case: [id number] ? Authorizing Provider: ??Miguel Larkin MD ? Collected: ? 01/01/2023 08:41 AM ? Ordering Location: ? [facility] ?Received: ?01/01/2023 11:09 AM ? Pathologist: ? Kristina Taylor MD ? Specimen: ?Thyroid, Left Lobe, left thyroid stitch schwab superior ? 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 01/09/2023 3:12 PM [facility] Clinical History The patient is a 57-year-old woman with history of right thyroid nodule who previously underwent thyroid lobectomy (September 2022) showing papillary thyroid carcinoma with positive margins (right lobe anterior and posterior) and lymphatic invasion. Operative procedure: Left completion thyroid lobectomy with superior parathyroid identified and preserved. Inferior parathyroid not identified. 01/09/2023 3:12 PM [facility] Gross Description The requisition and specimen(s) are labeled with the patient's name, Yoselin Taylor. Received in formalin, specimen A consists of a 4.4 g, 4.0 cm x 2.3 cm x 1.0 cm disrupted thyroid lobe with a stitch that schwab superior and two additional 1.0 x 0.5 x 0.5 cm and 1.1 x 0.6 x 0.5 cm. The margins cannot be assessed due to the disruption. Sectioning of the 4.0 cm thyroid tissue shows purple-pink cut surface with 0.5 cm pink-cleveland nodule. Sectioning one of the additional fragments show a 0.8 cm pink-cleveland nodule. The 4.0 cm thyroid tissue is serially sectioned from inferior to superior and entirely submitted sequentially in cassettes A1-A6 (A5-0.5 cm nodule), A7-additional fragments, bisected (0.8 cm nodule)./AJ 01/09/2023 3:12 PM [facility] Pathologist Location at [facility] 01/09/2023 3:12 PM [facility] Disclaimer The performance characteristics of all immunohistochemical and indirect immunofluorescence stains (if any) cited in this report were determined by the Histopathology Laboratory of [facility]. Some of these tests were developed by our own laboratory and have not been cleared or approved by the US Food and Drug Administration. The FDA does not require this test to go through premarket FDA review. These tests are used for clinical purposes. They should not be regarded as investigational or for research. This laboratory is certified under the Clinical Laboratory Improvement Amendments (CLIA) as qualified to perform high complexity clinical laboratory testing. This case has been personally reviewed and interpreted by the attending (teaching) pathologist. 01/09/2023 3:[address] [facility] Embedded Images 01/09/2023 3:12 PM [facility] Biopsy, Excision (Thyroid, Left Lobe) 01/01/2023 8:[address] 01/01/2023 11:[address] Comment:Pre-op diagnosis: Thyroid nodule Miguel Larkin MD LAB - PATHOLOGY/CYTO LOGY ORDERABLES [facility] [address] [place] [address], [place] [phone] * ETT LINE PERFORMABLE (01/01/2023 7:[address]) Narrative Jamal Recio Anes Asst - 01/01/2023 7:[address] Jamal Recio Anes Asst ? 01/01/2023 ??7:49 AM Endotracheal Tube Placement: ? Patient Location: OR. Intubation Event Date/Time: ??01/01/2023 7:37 AM Procedure: intubation (22525). Procedure Section: ?? Sedation: under general anesthesia. Indications for Airway Management: ??anesthesia Induction: standard IV Patient Position: ??sniffing Mask Ventilation: easy. Blade Type: Neri Blade Size: 3 Laryngoscopy View: grade 1 (full cords) Intubation Adjuncts: stylet Tube: nerve integrity monitoring tube Placement: oral Tube type: cuff - inflated Tube Size (MM): 7 Depth of Insertion (CM): 21 Measured From: teeth Cuff Inflated With: air Number of Attempts: 1. Placement Verified By: direct visualization, bilateral breath sounds, chest auscultation, CO2 monitor and CO2 detector Tube secured with: ??adhesive tape. Dentition unchanged? ??Yes Difficult Airway? ??No. Procedure Start Time: 01/01/2023 7:37 AM. Staff Section ? Anesthesia Provider: Jamal Recio Anes Asst, Performed the procedure ? Provider #1: Darin Ag II, MD. Additional Comments: Atraumatic intubation, dentition as in pre-op. . Darin Ag II, MD GENERAL ANESTHESIA ORDERABLES * TYPE + SCREEN PANEL (01/01/2023 6:[address]) Only the most recent of3 resultswithin the time period is included. Pathologist [facility] Antibody Screen NEG 7:[address] [facility] ABO Rh A NEG 01/01/2023 7:[address] [facility] Blood Bank BLOOD SPECIMEN / Unknown Venipuncture / Unknown 01/01/2023 6:[address] 01/01/2023 6:[address] [place] MANAGER INSTRUMENTATION-INDUSTRIAL MAINTENANCE MANAGER LAB - BLO OD BANK ORDERABLES [facility] [address] [place] [address], [place] [phone] * PT-INR [facility] (11/17/2022 12:06 PM CDT) [facility] PT 13.1 12.1 - 14.8 Seconds 11/17/2022 12:54 PM CDT [facility] INR 1.0 See Comment 11/17/2022 12:54 PM CDT [facility] Comment:The suggested therap eutic range for standard coumadin (warfarin) therapy is an INR of 2.0-3.0. For high-risk patients (Mechanical Mitral Valve Prosthesis, etc.), the suggested prophylactic therapeutic range is an INR of 2.5-3.5. Blood BLOOD SPECIMEN / Unknown Lab Venipuncture / Unknown 11/17/2022 12:06 PM CDT 11/17/2022 12:07 PM CDT Gregory Sarabia MD LAB - COAGULATION ORDERABLES [facility] [address] [place] [address], [place] [phone] * (ABNORMAL) COMPREHENSIVE METABOLIC PANEL (11/17/2022 12:06 PM CDT) Pathologist [facility] BUN 10 7 - 26 mg/dL 11/17/2022 12:37 PM CDT [facility] Creatinine 0.75 0.56 - 0.96 mg/dL 11/17/2022 12:37 PM [facility] Sodium 144 136 - 145 mmol/L 11/17/2022 12:37 PM [facility] Potassium 4.0 3.5 - 4.5 mmol/L 11/17/2022 12:37 PM [facility] Chloride 107 98 - 107 mmol/L 11/17/2022 12:37 PM [facility] CO2 27 22 - 29 mmol/L 11/17/2022 12:37 PM [facility] Glucose 81 70 - 115 mg/dL 11/17/2022 12:37 PM [facility] Calcium 9.8 8.4 - 10.2 mg/dL 11/17/2022 12:37 PM [facility] Protein Total 7.9 6.0 - 8.3 g/dL 11/17/2022 12:37 PM [facility] Albumin 4.2 3.4 - 5.0 g/dL 11/17/2022 12:37 PM [facility] Bilirubin Total 0.4 0.2 - 1.2 mg/dL 11/17/2022 12:37 PM [facility] Alkaline Phosphatase 62 40 - 150 U/L 11/17/2022 12:37 PM [facility] ALT 24 5 - 55 U/L 11/17/2022 12:37 PM [facility] AST 25 5 - 34 U/L 11/17/2022 12:37 PM [facility] Anion Gap 10 6 - 16 11/17/2022 12:37 PM [facility] BUN/Creatinine Ratio 13 7 - 23 11/17/2022 12:37 PM [facility] Osmolality Calculated 296(H) 275 - 295 mOsm/kg 11/17/2022 12:37 PM [facility] Albumin/Globulin Ratio 1.1 1.1 - 2.3 11/17/2022 12:37 PM [facility] eGFR by CKD-EPI >90 >=90 mL/min/1.7 3 m2 11/17/2022 12:37 PM [facility] Blood BLOOD SPECIMEN / Unknown Lab Venipuncture / Unknown 11/17/2022 12:06 PM CDT 11/17/2022 12:08 PM CDT Gregory Sarabia MD LAB - CHEMISTRY OR DERABLES [facility] [address] [place] [address], [place] [phone] * MA LARYNGOSCOPY,FLEX FIBER,DIAGNOSTIC (11/17/2022 11:26 AM CDT) Narrative Miguel Larkin MD - 11/17/2022 11:26 AM CDT Miguel Larkin MD ? 11/17/2022 11:28 AM Procedure Note Endoscopy Type: ??Laryngoscopy Endoscope: 4mm flexible nasopharyngoscopy Anesthesia: topical lidocaine Procedure Details: ?? The patient was sitting upright in a chair with the head in a slightly anterior sniffing position. The endoscope was passed through the nasal cavity with the tongue retracted anteriorly. The tip of the endoscope was positioned in the oropharynx which allowed a complete view of the base of tongue, vallecula, pyriform recesses, epiglottis, bilateral true and false vocal folds, the interarytenoid and post cricoid region, and the immediate subglottis. Findings: True vocal folds move completely and symmetrically. ??No lesions seen. Condition: Stable. ??Patient tolerated procedure well. Complications: None Miguel Larkin MD PROCEDURE/MINOR SURG ICAL ORDERABLES * MA LARYNGOSCOPY,FLEX FIBER,DIAGNOSTIC (10/13/2022 1:42 PM CDT) Narrative Marilyn Lucas MD - 10/13/2022 1:42 PM CDT Marilyn Lucas MD ? 10/13/2022 ??4:29 PM Procedure Note Endoscopy Type: ??Laryngoscopy Endoscope: 4mm flexible nasopharyngoscopy Anesthesia: topical lidocaine Procedure Details: ?? The patient was sitting upright in a chair with the head in a slightly anterior sniffing position. The endoscope was passed through the nasal cavity with the tongue retracted anteriorly. The tip of the endoscope was positioned in the oropharynx which allowed a complete view of the base of tongue, vallecula, pyriform recesses, epiglottis, bilateral true and false vocal folds, the interarytenoid and post cricoid region, and the immediate subglottis. Findings: No significant swelling, bilateral vocal cords mobile with weakness on left but much improved from prior exam. ?? Condition: Stable. ??Patient tolerated procedure well. Complications: None Miguel Larkin MD PROCEDURE/MINOR SURG ICAL ORDERABLES * MA LARYNGOSCOPY,FLEX FIBER,DIAGNOSTIC (09/13/2022 5:03 PM CDT) Narrative Miguel Larkin MD - 09/13/2022 5:03 PM CDT Miguel Larkin MD ? 09/13/2022 ??5:04 PM Procedure Note Endoscopy Type: ??Laryngoscopy Endoscope: 4mm flexible nasopharyngoscopy Anesthesia: topical lidocaine Procedure Details: ?? The patient was sitting upright in a chair with the head in a slightly anterior sniffing position. The endoscope was passed through the nasal cavity with the tongue retracted anteriorly. The tip of the endoscope was positioned in the oropharynx which allowed a complete view of the base of tongue, vallecula, pyriform recesses, epiglottis, bilateral true and false vocal folds, the interarytenoid and post cricoid region, and the immediate subglottis. Findings: No significant swelling left side of the larynx moves well the right side does not move very well but does appear to have some tone and occasional flickering. Condition: Stable. ??Patient tolerated procedure well. Complications: None Miguel Larkin MD PROCEDURE/MINOR SURG ICAL ORDERABLES * IV PLACEMENT PERFORMABLE (09/12/2022 8:09 AM CDT) Narrative Orly Bucio APRN-CRNA - 09/12/2022 8:09 AM CDT Orly Bucio APRN-CRNA ? 09/12/2022 ??8:09 AM Peripheral IV Line Placement: Patient Location: ??OR Procedure: IV start (33909). Procedure Section: ?? Skin Prep: alcohol. Orientation: left Location: hand Local Anesthetic Used? ??No Catheter Gauge: 20 Number of Attempts: 1. Procedure Tolerance: performed while patient under general anesthesia. Procedure Start Time: 09/12/2022 7:40 AM. Staff Section ? Anesthesia Provider: Orly Bucio APRN-CRNA, Performed the procedure Israel Lopez MD GENERAL ANESTHESIA O RUFINA * ETT LINE PERFORMABLE (09/12/2022 8:07 AM CDT) Narrative Orly Bucio APRN-CRNA - 09/12/2022 8:07 AM CDT Orly Bucio APRN-CRNA ? 09/12/2022 ??8:08 AM Endotracheal Tube Placement: ? Patient Location: OR. Intubation Event Date/Time: ??09/12/2022 7:38 AM Procedure: intubation (89158). Procedure Section: ?? Sedation: under general anesthesia. Indications for Airway Management: ??anesthesia Procedure pretreatments used? ??No Induction: standard IV Patient Position: ??sniffing Mask Ventilation: easy. Blade Type: Neri Blade Size: 3 Laryngoscopy View: grade 1 (full cords) Intubation Adjuncts: video laryngoscope and stylet Tube: nerve integrity monitoring tube Placement: oral Tube type: cuff - inflated Tube Size (MM): 7 Depth of Insertion (CM): 21 (blue line noted at level of cords) Measured From: lips Cuff Inflated With: air Number of Attempts: 1. Placement Verified By: direct visualization, bilateral breath sounds, chest auscultation and CO2 monitor CXR Findings: ETT in proper place. Tube secured with: ??adhesive tape. Dentition unchanged? ??Yes Difficult Airway? ??No. Procedure Start Time: 09/12/2022 7:38 AM. Staff Section ? Anesthesia Provider: Orly Bucio APRN-CRNA, Performed the procedure ? Provider #1: Israel Lopez MD. Israel Lopez MD GENERAL ANESTHESIA O RUFINA * HCG URINE QUALITATIVE - POCT (IP) INTERFACED (09/12/2022 5:49 AM CDT) HCG Qual Urine Negative Negative 09/12/2022 5:[address] [facility] Urine URINE / Unknown 09/12/2022 5 :49 AM CDT 09/12/2022 5:56 AM CDT Miguel Larkin MD LAB - POINT OF CARE ORDERABLES Performing Organization Address City/[facility]/ZIP Co de Phone Number [address] [address], [place] [phone] * HCG URINE QUAL POCT NOTIFICATION (09/12/2022 5:40 AM CDT) Comment Notification Label Only - See Separate Report 09/12/2022 7:00 AM CDT [facility] Urine URINE / Unknown 09/12/2022 5 :40 AM CDT 09/12/2022 5:40 AM CDT Miguel Larkin MD LAB - URINALYSIS ORD ERABLES Performing Organization Address City/[facility]/ZIP Co de Phone Number [address] [address], [place] [phone] * CBC W/O DIFFERENTIAL (08/30/2022 2:52 PM CDT) WBC 6.6 3.5 - 10.5 10? 3 /uL 08/30/2022 3:16 PM CDT [facility] RBC 4.46 3.80 - 5.20 10? 6 /uL 08/30/2022 3:16 PM T [facility] Hemoglobin 14.4 12.0 - 15.6 g/dL 08/30/2022 3:16 PM T [facility] Hematocrit 43.4 35.0 - 45.0 % 08/30/2022 3:16 PM T [facility] MCV 97.3 80.7 - 98.3 fL 08/30/2022 3:16 PM CDT [facility] MCH 32.3 26.7 - 34.0 pg 08/30/2022 3:16 PM CDT [facility] MCHC 33.2 30.8 - 35.9 g/dL 08/30/2022 3:16 PM CDT [facility] RDW-SD 44.9 36.0 - 50.0 fL 08/30/2022 3:16 PM CDT [facility] RDW-CV 12.5 11.2 - 14.8 % 08/30/2022 3:16 PM CDT [facility] Platelet Count 289 150 - 400 10? 3 /uL 08/30/2022 3:16 PM CDT [facility] MPV 10.2 9.4 - 12.9 fL 08/30/2022 3:16 PM CDT [facility] nRBC Absolute 0.00 0 10? 3 /uL 08/30/2022 3:16 PM CDT [facility] nRBC Auto 0.0 0 /100 WBC 08/30/2022 3:16 PM CDT [facility] Blood BLOOD SPECIMEN / Unknown Lab Venipuncture / Unknown 08/30/2022 2:52 PM CDT 08/30/2022 3:05 PM CDT Ashli Smith MANAGER INSTRUMENTATION-INFORMATION ASSURANCE SPECIALIST LAB - HEMATOLOGY ORDERABLES Performing Organization Address [facility]/State/[facility] Co de Phone Number [facility] [address] [place] [phone], [place] [phone] * MA LARYNGOSCOPY,FLEX FIBER,DIAGNOSTIC (08/11/2022 12:06 PM CDT) Narrative Rogelio Chambers MD - 08/11/2022 12:06 PM CDT Rogelio Chambers MD ? 08/11/2022 ??3:59 PM Procedure Note Endoscopy Type: ??Laryngoscopy without stroboscopy Endoscope: Flexible 4mm Scope Anesthesia: Lidocaine 2% and Neosynephrine 1/2% (nasal) Procedure Details: The patient was sitting upright in a chair with the head in a slightly anterior sniffing position. The topical anesthesia was administered and then adequate time was allowed ??for an anesthetic effect. The endoscope was passed thru the bilateral nasal cavities. The tip of the endoscope was positioned in the oropharynx which allowed a complete view of the base of tongue, vallecula, pyriform recesses, epiglottis, bilateral true and false vocal folds, the interarytenoid and post cricoid region, and the immediate subglottis. Findings: The nasal cavity contained no masses. Mucus membranes moist. There were no masses in the nasopharynx. The tongue base was normal. The true vocal cords were visualized and mobile bilaterally. There were no masses or mucosal lesions in the hypopharynx. Condition: Stable. ??Patient tolerated procedure well. Complications: None The attending was present for and participated in critical portions of the entirety of the procedure. Miguel Larkin MD PROCEDURE/MINOR SURG ICAL ORDERABLES Care Teams Molecular Geneticist Relationship Specialty Start Date End Date Sergio Bush PA-C [address] [place] [address] PCP - General Physician Supervisor [employer] 08/30/22
--- OUTSIDE RECORDS SUMMARY | 2024-03-11 11:11 | XMS_ITS | Encounter Summary ---
Author Organization [facility] Healthcare Address [address] [place] [address] Care Team Providers Care Cableman Name Role Phone Sergio Bush Primary Care Provider Mariusz Carr MD Unavailable [phone] Fernando Hernández MD PhD Unavailable [phone] Miguel Larkin MD Unavailable [phone] Encounter Details Date Type Department Care Team (Late st Contact Info) Description 03/09/2023 Telephone [facility] Advanced Medicine Radiation Oncology [address] [facility] [place] [address] Alexander Rao, RN Social History Tobacco Use Types Packs/Day Years Used Date Smoking Tobacco: Never Smokeless Tobacco: Never Personal Safety Answer Date Recorded Getting School Help Needed Not on file 02/09 Comments Unknown Sex and Gender Information Value Date Recorded Sex Assigned at Not on file Legal Sex Female 10:11 PM DIRECTOR MEDICAL WRITING Gender Identity Not on file Sexual Orientation Not on file documented as of this encounter Plan of Treatment Not on file documented as of this encounter Visit Diagnoses Not on filedocumented in this encounter Care Teams Cableman Relationship Specialty Start Date End Date Sergio Bush PA [address] [address] PCP - General Physician Nitro Worker 09/17/19 Mariusz Carr MD [address] [place] [address] Referring Physician Internal Medicine 02/09/23 Fernando Hernández MD PhD [address] [facility] [address] [facility] [address] [place] [address] Radiation Oncologist Radiation Oncology 03/20/23 Miguel Larkin MD [address] [facility] DEPT OTOLARYNGOLOGY, [address] [place] [id number] Referring Physician Otolaryngology 03/20/23 documented as of this encounter
--- OUTSIDE RECORDS SUMMARY | 2024-03-11 11:11 | XMS_ITS | Continuity of Care Document ---
Author Organization [facility] Address [address] [facility] [address] [place] [phone] Phone Care Team Providers Care Corporate Staff Accountant Name Role Phone Mitch Moon MD Unavailable Unavailabl e Allergies, Adverse Reactions, Alerts Substance Reaction Status [...] on Encounter Independent Medical Examination [facility], [facility] [address], [id number], [place] tel:[phone] [facility] Right elbow (chief complaint) right shoulder and right wrist (chief complaint) Lateral epicondylitis, right elbowSprain of right rotator cuff capsule, sequelaCarpal tunnel syndrome, right upper limb [address] Sarai Meyer. [address] [place] [address], [id number], [place]. tel:[phone] [facility], [address] [place] [address], [id number], [place] tel:[phone] [facility] No Information 4 Sarai Meyer. [address] [place] [address], [place], [place], [id number], [place]. tel:[phone] [facility] [employer], [address], [place], [place], [id number], [place] tel:[phone] [facility] No Information 2 Sarai Meyer. [address] [facility], [place], [place], [id number], [place]. tel:[phone] Family History Family Member Type Diagnosis Age At Onset Mother Problem (finding) Heart Disease Father Problem (finding) Cancer, unknown Mother Problem (finding) Osteoporosis Immunizations Vaccine Date Status Comments influenza, injectable, quadr ivalent, (3 years or older) administered Source: Other Provid er Payers Payer name Insurance type Covered constitution party ID Authorsevero [email or web address](s) Exam Works [id number] Social History Type Description Quantity Date Captured [...] 90.718 kg (200.00 lbs) 35.4 3 kg/m faizaer (2) Chief Complaint And Reason For Visit From encounter dated '04/10/2023 10:15'. Right elbow (chief complaint). Description: Ms. Yoselin Taylor presents to the office today on April 10, 2023. She is here for an Independent Medical Evaluation regarding her right upper extremity, including her right shoulder, right elbow, and right wrist. 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 She has worked in this capacity with [employer] for 23 years. Ms. 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 After that, she was out of work for a few years until she started working for [employer]. Ms. Taylor explains that as a Cork Insulation Installer with [employer], she works in the [...] care physician, Dr. Edenilson Zepeda MD with [facility], on December 04, 2012. Dr. Zepeda noted [...] Taylor to Dr. Dennis Christensen MD with [facility], [facility]. Ms. Michael anthony saw Dr. Christensen in [...] MRI was performed at [facility] on March 27, 2013. The MRI was [...] four days ago. 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 [...] well. There are occupational therapy notes from [facility] ordered by Dr. Fred Child. The therapy notes extend from December 15, 2014 through February 25, 2015. The Initial Evaluation from the occupational therapist at [facility] notes that ...the patient related her right dominant elbow has bothered her for a few years but really became painful in February of this year due tothe new scanning system she must work with in the [employer]... She had injections in the elbow in June 2014 and her workload reduced because of reduced student population on campus her pain decreased. Now that the population is large again with school in session her pain is worse again.She is unable to get away from the elbow pain and is losing function... The Re-Evaluation note from [facility] dated February 25, 2015 indicated that Ms. Taylor attended occupational therapy twice per week for a total of 18 visits. The occupational therapist documented ...her employer has not modified her work station in an effort to remove the causative risk factor believed to be causing this injury... 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 Dr. Fred Child MD eventually took Ms. Taylor to surgery on June 09, 2015 at [facility] for her right elbow lateral epicondylitis. She was noted to have ...significant degeneration of the extensor carpi radialis brevis tendon origin with associated bony changes oflateral epicondyles... She underwent a right open debridement of lateral epicondyle and extensor wad with anconeus flap. Post-operatively, Ms. Taylor worked with occupational therapy againat [facility] in [place], [place] from 2015 through August 26, 2015. [...] note from Dr. Dianne Sparks MD with [facility] dated May 12, 2019. Dr. Sparks [...] She also referred her to Orthopedics at [facility]. Ms. Taylor was seen by Ziggy Ventura PA-C, working in collaboration with Dr. Enoc Albright MD with [facility]. Ms. Taylor was seen by Mr. Ventura on September 22, 2019. Mr. Ventura noted that Ms. Taylor presented with [...] decided to try a cortisone injection. Mr. hTomas also encouraged Ms. Taylor to continue her [...] to moving into a new house in 2018. As far as her right wrist is [...] note from Dr. Dianne Sparks MD with [facility] dated May 12, 2019. Dr. Sparks [...] Feels as if the shoulder locks or catches . Impacting daily activities... Dr. Sparks suspected a rotator cuff tear, and she referred Ms. Taylor for physical therapy. She also referred her to Orthopedics at [facility]. Ms. Taylor was seen by Ziggy Ventura PA-C, working in collaboration with Dr. Enoc Albright MD with [facility]. Ms. Taylor was seen by Mr. Ventura on September 22, 2019. Mr. Ventura noted that Ms. Taylor presented with [...] CARYN Aguilar on October 30, 2019. Mr. Ventura documented that ...overall she reports her symptoms [...] right wrist. 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 She has worked in this capacity with [employer] for 23 years. Ms. 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 After that, she was out of work for a few years until she started working for [employer]. Ms. 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 Edenilson Zepeda MD with [facility], on December 04, 2012. Dr. Zepeda noted [...] Taylor to Dr. Dennis Christensen MD with [facility], [facility]. Ms. Taylor saw Dr. Christensen in his [...] MRI was performed at [facility] on March 27, 2013. The MRI was [...] four days ago. 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 There is another MRI report from [facility] dated June 17, 2014, ordered by Dr. [...] well. There are occupational therapy notes from [facility] ordered by Dr. Fred Child. The therapy notes extend from December 15, 2014 through February 25, 2015. The Initial Evaluation from the occupational therapist at [facility] notes that ...the patient related her right dominant elbow has bothered her for a few years but really became painful in February of this year due to the new scanning system she must work with in the [employer]... She had injections in the elbow in June 2014 and her workload reduced because of reduced student population on campus her pain decreased. Now that the population is large again with school in session her pain is worse again. She is unable to get away from the elbow pain and is losing function... The Re-Evaluation note from [facility] dated February 25, 2015 indicated that Ms. Taylor attended occupational therapy twice per week for a total of 18 visits. The occupational therapist documented ...her employer has not modified her work station in an effort to remove the causative risk factor believed to be causing this injury... 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 Dr. Fred Child MD eventually took Ms. Taylor to surgery on June 09, 2015 at [facility] for her right elbow lateral epicondylitis. 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 She underwent a right open debridement of lateral epicondyle and extensor wad with anconeus flap. Post-operatively, Ms. Taylor worked with occupational therapy again at [facility] in [place], [place] from 2015 through August 26, 2015. [...] right elb ow impression I [facility] history and physical examination for Ms. Yoselin Heredia, and I also reviewed the medical records provided, including a prescription for physical therapy for the low back from July 06, 1999, a physical therapy note from [facility] dated July 11, 1999, another PT prescription for the neck and upper back dated November 03, 2005, additional PT notes from [facility] from November 15, 2005 through October 18, 2009, primarily for low back pain, office notes from Dr. Edenilson Zepeda MD from September 21, 2010 at which time Ms. Taylor presented to [facility], emergency room notes from [facility] dated July 03, 2011 when Ms. [...] right elbow pain, physical therapy notes from [facility] dated December 10, 2012 through February 13, 2013 relative to a right cervical strain, right rotator cuff tendonitis, and right elbow extensor tendonitis, office notes from Dr. Dennis Christensen MD with [facility], [facility] dated March 05, 2013 for right elbow pain, an MRI right elbow report from [facility] dated March 27, 2013, additional office notes from Dr. Zepeda dated July 28, 2013 through March 09, 2024 with regards to lab findings suggesting pre-diabetes, labyrinthitis, and then a recurrence of right shoulder and elbow pain, a physical therapy prescription to [facility] for the right shoulder and right elbow dated March 09, 2014, physical therapy notes from [facility] from March 11, 2014 through April 23, 2014, office notes from Dr. Zepeda dated April 06, 2014 regarding headaches, an MRI right elbow report from [facility] dated June 17, 2014, occupational therapy notes from [facility] from December 15, 2014 through February 25, 2015 relative to right elbow tendonitis, the operative report from Dr. Fred Child MD at [facility] dated June 09, 2015, [facility] through August 26, 2015 [...] notes from Dr. Dulce Villalta MD with [facility] dated February 14, 2017 regarding chills and a cough, office notes from Dr. 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 She has worked in this capacity with [employer] for 23 years. 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 After that, she was out of work for a few years until she started working for [employer]. The claimant went on to explain that as a Cork Insulation Installer with [employer], she has worked in [...] and which I would consider to be [id number]. She also has a history of right [...] shoulder, or right wrist. She does take iloa-tba-pjdchcp Ibuprofen as needed, and she uses Voltaren topical gel anyg-cwx-dxscchx. These are both appropriate. 14. Is additional [...]
[2024-03-11 11:48] LABS: Thyroid Stimulating Hormone 0.209 uIU/mL (0.465-4.680)
[2024-03-11 12:47] LABS: Free T4 Free Thyroxine 1.58 ng/dL (0.78-2.19)
[2024-03-13 10:19] LABS: Thyroglobulin <0.1 ng/mL; Thyroglobulin Antibodies <1 IU/mL (< or = 1)
== END 2024-03-11 10:38 | disposition home or self-care (01) ==
PROVIDERS: PCP Physician Assistant; Visit Provider Internal Medicine
DX: C73 Malignant neoplasm of thyroid gland (principal)
CPT/HCPCS: 36415; 84432; 84439; 84443; 86800

== ENCOUNTER 2024-03-17 06:58 | Outpatient (CLI) | payer BC, SELFPAY ==
--- OUTSIDE RECORDS SUMMARY | 2024-03-17 07:01 | XMS_ITS | Referral Summary ---
Author Organization [facility] HealthCare Care Team Providers Care Logistics Assistant Name Role Phone Sergio Bush Primary Care Provider Mariusz Carr MD Unavailable [phone] Fernando Hernández MD PhD Unavailable Miguel Larkin MD Unavailable [phone] Encounters Date Type Department Care Team Description 03/05/2024 Orders Only [facility] Radiation Oncology [address] [place] [address] Edenilson Valadez III, MD PhD Malignant neoplasm of thyroid gland (HCC) (Primary Dx) 02/01/2024 Telephone [facility] Radiation Oncology [address] [place] [address] Zulema Mayorga MA Scheduling Appointments from Last [...] 04/12/2020 Assessment & Plan (04/12/2020 9:38 AM ELECTRIC FREIGHT CAR OPERATOR): Due to the patient stating that her restless legs are still bothering her at night, I have increased her Requip to 1 mg p.o. at bedtime. The patient will also continue with iron 325 mg daily as tolerated. IRISH (obstructive sleep apnea) 04/12/2020 Assessment & Plan (04/12/2020 9:37 AM ELECTRIC FREIGHT CAR OPERATOR): The patient will continue with CPAP therapy at 9 cm water pressure to treat obstructive sleep apnea. Patient denied need for supplies. The DME company is [employer]. The patient is benefitting from CPAP therapy. [...] on file Legal Sex Female 10:11 PM ELECTRIC FREIGHT CAR OPERATOR Gender Identity Not on file Sexual Orientation Not on file Last Filed Vital Signs Vital Sign Reading Time Taken Comments Blood Pressure 124/82 04/12/2020 9:18 AM ELECTRIC FREIGHT CAR OPERATOR Pulse 77 04/12/2020 9:18 AM ELECTRIC FREIGHT CAR OPERATOR Temperature 36.7 C (98 F) 04/12/2020 9:18 AM ELECTRIC FREIGHT CAR OPERATOR Respiratory Rate - - Oxygen Saturation 99% 04/12/2020 9:18 AM ELECTRIC FREIGHT CAR OPERATOR Inhaled Oxygen Concentration - - Weight 92.5 kg (204 lb) 09/25/2023 10:58 AM CDT Height 162.6 cm (5' 4 ) 09/25/2023 10:58 AM CDT Body Mass Index 35.02 09/25/2023 10:58 AM CDT Plan of Treatment Not on file Insurance [facility] CHO[facility] H[facility]PPO Address: [facility] [address] [place] [address] [place] [facility] CHOICE [facility] H[facility]/PPO Address: [address] [address] [place] [address] Care Teams Logistics Assistant Relationship Specialty Start Date End Date Sergio Bush PA [address] [facility] [address] [place] [address] PCP - General Physician Candy Maker 09/17/19 Mariusz Carr MD [address] [facility] [address] [place], [place] [address] Referring Physician Internal Medicine 02/09/23 Fernando Hernández MD PhD [address] [facility] [address] [facility] [address] [place] [address] Radiation Oncologist Radiation Oncology 03/20/23 Miguel Larkin MD [address] [facility]3] DEPT OTOLARYNGOLOGY[address] [address] Referring Physician Otolaryngology 03/20/23
--- OUTSIDE RECORDS SUMMARY | 2024-03-17 07:01 | XMS_ITS ---
Author Organization [facility] Address [address] [facility] [address] [place] [address] Care Team Providers Care Hatchery Attendant Name Role Phone Sergio Bush Primary Care Provider VIRGINIA Rangel [phone] REASON FOR VISIT Trying to reach patient Encounters Encounter Location Date Provider Diagnosis [facility] [address] [facility] [address] [place] [address] 08/30/2023 VIRGINIA MCKAY Plan Of Treatment No Information Progress Notes * Kelly SOODOB:[birth year] (58 yo F)Acc No.[id number]:08/30/2023 Patient: Yoselin WEBSTER :1965 A ge:58 Y S ex:Female Address: [facility] [place] [place] [address] * true * Date: Generated for Cuauhtemoc mcclendon/Maeve/eTransmitting on: 0 03/17/2024 07:01 AM MATERIAL DISPOSITION INSPECTOR
--- OUTSIDE RECORDS SUMMARY | 2024-03-17 07:01 | XMS_ITS | Patient Health Record ---
Author Organization [facility] Address [address] [facility] [address] [place] [address] Care Team Providers Care Fretted Instrument Maker Hand Name Role Phone Sergio Bush Primary Care Provider [place] Rangel Unavailable [phone] Allergies No Known Allergies Reason For Referral No Information Medications Medication SIG (Take, Route, Frequency, Duration) Notes Start Date End Date Status Calcium 500 MG 1 tablet with meals Orally Twice a day Active Omeprazole 10 MG 1 capsule 30 minutes before morning meal Orally Once a day Active Vitamin D 50 MCG (1999 UT) 1 tablet Orally Once a day Active Iron Active Synthroid 150 MCG 1 tablet in the morn ing on an empty stomach Orally Once a day Active Social History Tobacco Use: Social History Observation Description Date Details (start date - stop date) Never Smoker NA - NA Tobacco Use/Smoking Question Answer Notes Are you a nonsmoker Problems Problem Type SNOMED Code ICD Code Onset Dates Problem Status W/U Status Risk Notes Problem Obesity due to excess calories (153285669) Other obesity due to excess calories (E66.09) Active confirmed Problem Phlebitis and thrombophlebitis of iliac vein, bilateral (I80.213) Active confirmed Problem Pain co-occurrent and due to varicose veins of bilateral legs ([id number] 61282) Varicose veins of bilateral lower extremities with pain (I83.813) Active confirmed Problem Pain in limb (20711875) Pain in leg, unspecified (M79.606) Active confirmed Vital Signs Heart Rate 83 /min 08/16/2023 Respiratory Rate 16 /min 07/12/2023 Blood pressure diastolic 72 mm Hg 08/16/2023 Height 64 in 08/16/2023 Blood pressure systolic 132 mm Hg 08/16/2023 Weight 194.2 lbs 08/16/2023 BMI 33.33 kg/m2 08/16/2023 Encounters Encounter Location Date Provider Diagnosis [place] [id number] [id number] 07/19/2023 V[place]GINIA MCKAY [place] [address] [id number] 08/30/2023 V[place] WOODY [place] [address] [id number] 09/17/2023 VIRGINIA WOODY [address] [id number] 07/12/2023 VIRGINIA MCKAY Pain in leg, unspecified M79.606 ; Varicose veins of bilateral lower extremities with pain I83.813 ; Phlebitis and thrombophlebitis of iliac vein, bilateral I80.213 ; Other obesity due to excess calories E66.09 and Family history of ischemic heart disease and other diseases of the circulatory system Z82.[address] [address] 08/10/2023 [place] WOODY Phlebitis and thrombophlebitis of iliac vein, bilateral I80.213 ; Pain in leg, unspecified M79.606 and Varicose veins of bilateral lower extremities with pain I83.813 [facility] [address] [place] [address] 08/16/2023 V[place] WOODY Phlebitis and thrombophlebitis of iliac vein, bilateral I80.213 ; Pain in leg, unspecified M79.606 and Varicose veins of bilateral lower extremities with pain I83.813 [facility] [address] [place] [address] 07/12/2023 VIR[place]IA MCKAY [facility] [address] [place] [phone] 07/19/2023 VIRGINIA MCKAY [facility] [address] [place] [phone] 08/13/2023 V[place]IA MCKAY [facility] [address] [place] [address] 08/16/2023 VIRGINIA MCKAY [facility] [address] [place] [address] 08/30/2023 VIRGINIA MCKAY [facility] [address] [facility] [address] [place] [address] 08/30/2023 VIRGINIA MCKAY [facility] [address] [facility] [address] [place] [address] 09/17/2023 VIRGINIA MCKAY Assessments Encounter Date Diagnosis (ICD Code) Assessment Notes Treatment Notes Treatment Clinical Notes Section Notes 07/12/2023 Varicose veins of bilateral lower extremities with pain (ICD-10 - I83.813) Recommend use of 20-30mmhg graduated compression stockings today. Will continue with all conservative measures, including compression stockings, leg elevation, exercise, and NSAID-s. Will obtain VRS of BLE to better understand patient's venous disease. Further recommendations will follow.Will review first recent vrs,ekg ok 07/12/2023 Pain in leg, unspecified (ICD-10 - M79.606) 08/10/2023 Phlebitis and thrombophlebitis of iliac vein, bilateral (ICD-10 - I80.213) 08/10/2023 Pain in leg, unspecified (ICD-10 - M79.606) 08/16/2023 Phlebitis and thrombophlebitis of iliac vein, bilateral (ICD-10 - I80.213) 08/10/2023 Varicose veins of bilateral lower extremities with pain (ICD-10 - I83.813) 07/12/2023 Phlebitis and thrombophlebitis of iliac vein, bilateral (ICD-10 - I80.213) 08/16/2023 Pain in leg, unspecified (ICD-10 - M79.606) 07/12/2023 Other obesity due to excess calories (ICD-10 - E66.09) 08/16/2023 Varicose veins of bilateral lower extremities with pain (ICD-10 - I83.813) Today's venous reflux studies demonstrate significant venous reflux disease in lower extremities. Patient is failing conservative measures with compression stockings, leg elevation, exercise and NSAID's. Will benefit from ablation procedure. Will schedule for right ssv Varithena __ in near future. Meanwhile will continue conservative therapy. 07/12/2023 Family history of ischemic heart disease and other diseases of the circulatory system (ICD-10 - Z82.49) Check ekg,check lipids-goal ldl less 70,weight loss Plan Of Treatment No Information Insurance Providers Payer Name Payer Address Payer Phone Subscriber Number Group Number Insured Name Patient Relationship to Insured Coverage Start Date Coverage End Date [facility] [address] [place] [address] [phone] [id number] Yoselin Taylor Self - patient is the insured Medical (General) History Medical History History ICD Code Hypothyroidism Cancer sleep apnea Surgical History Surgery Date(Month/Year) throidectomy elbow Tubal
--- OUTSIDE RECORDS SUMMARY | 2024-03-17 07:01 | XMS_ITS ---
Author Organization [facility] Address [address] [facility] [address] [place] [address] Care Team Providers Care Net Developer Contract Name Role Phone Sergio Bush Primary Care Provider [place]IR[place] Rangel [phone] Medications Medication SIG (Take, Route, Frequency, Duration) Notes Start Date End Date Status Calcium 500 MG 1 tablet with meals Orally Twice a day Active Omeprazole 10 MG 1 capsule 30 minutes before morning meal Orally Once a day Active Vitamin D 50 MCG (1999) 1 tablet Orally Once a day Active Iron Active Synthroid 150 MCG 1 tablet in the morn ing on an empty stomach Orally Once a day Active Encounters Encounter Location Date Provider Diagnosis [facility] [address] [facility] [address] [place], [place] [phone] 09/17/2023 VIRGINIA MCKAY Plan Of Treatment No Information Progress Notes * Kelly SOODOB:[birth year] (58 yo F)Acc No.[id number]:09/17/2023 Patient: Yoselin WEBSTER Provider: Shakeel Mckay MD :1965 A ge:58 Y S ex:Female Date:09/17/2023 Address:[address] [place], [place] Pcp:Sergio Bush Subjective: * Chief Complaints: * * Medical History: * Medications: T aking Omeprazole 10 MG Capsule Delayed Release 1 capsule 30 minutes before morning meal Orally Once a day , Taking Calcium 500 MG Tablet 1 tablet with meals Orally Twice a day , Taking Iron , Taking Vitamin D 50 MCG (2000 UT) Tablet 1 tablet Orally Once a day , Taking Synthroid 150 MCG Tablet 1 tablet in the morning on an empty stomach Orally Once a day Objective: * Vitals: Assessment: Plan: * Treatment: * * Electronic signature of YENY MCKAY MD on 03/17/2024 at 07:01 AM RADIO INTERFERENCE TROUBLE SHOOTER Sign off status: Pending * Provider: Shakeel Mckay MD Date: 0 09/17/2023 Generated for Cuauhtemoc mcclendon/Maeve/Rocky on: 03/17/2024 07:01 AM RADIO INTERFERENCE TROUBLE SHOOTER
--- OUTSIDE RECORDS SUMMARY | 2024-03-17 07:01 | XMS_ITS | Clinical Summary ---
Author Organization [employer] [facility] [address] [facility] Address [address] [place] [address] Care Team Providers Care Boot Repairer Name Role Phone Dwayne Chandler DO Primary Care Provider Allergies Active Allergy Reactions Criticality Noted Date [...] Comments Blood Pressure 132/82 03/01/2023 9:40 AM STOCK SHIPPER Pulse - - Temperature 37 C (98.6 F) 01/27/2020 9:49 AM STOCK SHIPPER Respiratory Rate - - Oxygen Saturation - - Inhaled Oxygen Concentration - - Weight 92.7 kg (204 lb 6.4 oz) 03/01/2023 9:40 A M STOCK SHIPPER Height 162.6 cm (5' 4 ) 02/08/2022 9:09 AM STOCK SHIPPER Body Mass Index 35.09 02/08/2022 9:09 AM STOCK SHIPPER Plan of Treatment Upcoming Encounters Date Type Department Care Team (Late st Contact Info) Description 03/19/2024 9:00 AM STOCK SHIPPER Office Visit [facility] [address] [facility] [address] [facility] [address] [place] [address] [place] [address] [facility] [address] [place] [address] Health Maintenance Due Date Last [...] BASED SCREEN PAP Routine 02/08/2022 9:37 AM STOCK SHIPPER Well woman exam with routine gynecological exam MAMMO SCREEN BILAT W OR WO CAD Routine 02/03/2020 Breast cancer screening by mammogram from Last 3 Months or Most Recently Relevant to Health Maintenance Results * CERV/VAG CYTO AGE BASED SCREEN PAP (02/08/2022 9:37 AM STOCK SHIPPER) COMMENT (PAP): [facility] [place] Comment: This order for age-based cervical cancer and STI screening follows ACOG guidelines(PB 168, 140, RXG403). See individual assays for performing site location. CLINICAL INFORMATION [facility] [place] Comment:None given LAST MENSTRUAL PERIOD [facility] [place] Comment:NONE GIVEN PREV PAP: [facility] [place] Comment:NONE GIVEN PREV BX: [facility] [place] Comment:NONE GIVEN SOURCE [facility] [place] Comment:Endocervix ADEQUACY: [facility] [place] Comment: Satisfactory for evaluation. Endocervical/transformation zone component present. Age and/or menstrual status not provided PAP INTERP [facility] [place] Comment:Negative for intraep ithelial lesion or malignancy. COMMENT (PAP TEST) [facility] [place] Comment: This Pap test has been evaluated with computer assisted technology. OILING MACHINE OPERATOR: Jonnathan [facility]- [place] Comment: MMW, CT(ASCP) CT screening location: [place] [address] [place] [address] EXPLANATORY NOTE [facility] Comment: EXPLANATORY NOTE: The Pap is a [...] information. HPV E6/E7 Not Detected Not Detected [facility] [place] Comment: Methodology: Test Evaluator-Mediated Amplification This assay detects E6/E7 viral messenger RNA (mRNA) from 14 high-risk HPV types (16,18,31,33,35,39,45,51,52,56,58,59,66,68). Cervical sources are required for HPV testing. If a vaginal source from a patient who has had a total hysterectomy with removal of cervix was submitted, please contact the testing laboratory for alternative testing options. For additional information, please refer to http://education.GuestShots/faq/MXE486m3 (This link if provided for information/ educational purposes only.) Test [facility]formed at: [facility] [address] [place] [address] Mitch Silva D.O., MPH SL Genital SWAB OF ENDOCERVIX / Unknown 02/08/2022 9:37 AM STOCK SHIPPER 02/08/2022 11:08 PM STOCK SHIPPER Caprice Saldivar DO PATHOLOGY/CYTOLOGY ORDERABL ES Final Result [facility] [phone] [facility] [address] [place] [address] * MAMMO SCREEN BILAT W OR WO CAD (02/03/2020) Anatomical Region Laterality Modality Breast Bilateral Other Caprice Saldivar DO MAMMO ORDERABLES Final Resu lt from Last 3 Months or Most Recently Relevant to Health Maintenance Insurance [facility] [employer] Care Teams Boot Repairer Relationship Specialty Start Date End Date Dwayne Chandler DO [address] [facility] [address] [place] [address] PCP - General Internal Medicine 01/27/20
--- OUTSIDE RECORDS SUMMARY | 2024-03-17 07:01 | XMS_ITS ---
Author Organization [facility] Care Team Providers Care Dog Obedience Instructor Name Role Phone Sergio Bush Primary Care Provider Mariusz Carr MD Unavailable [phone] Fernando Hernández MD PhD Unavailable [phone] Miguel Larkin MD Unavailable [phone] Active Problems Problem Noted Date Diagnosed Date Thyroid cancer 10/13/2022 Cancer Staging:Pathologic stage from 09/12/2022:Stage I(pT1a, pNX, cM0, Age at diagnosis: >= 55 years) - Signed by Jennie Zuleta PA on 03/20/2023 RLS (restless legs syndrome) 04/12/2020 Assessment & Plan (04/12/2020 9:38 AM SHEARER OPERATOR): Due to the patient stating that her restless legs are still bothering her at night, I have increased her Requip to 1 mg p.o. at bedtime. The patient will also continue with iron 325 mg daily as tolerated. IRISH (obstructive sleep apnea) 04/12/2020 Assessment & Plan (04/12/2020 9:37 AM SHEARER OPERATOR): The patient will continue with CPAP therapy at 9 cm water pressure to treat obstructive sleep apnea. Patient denied need for supplies. The [employer] company is [employer]. The patient is benefitting from CPAP therapy. [...]
--- OUTSIDE RECORDS SUMMARY | 2024-03-17 07:01 | XMS_ITS | Referral Summary ---
Author Organization [facility] Address [address] [place] [address] Care Team Providers Care Outsole Tacker Name Role Phone Sergio Bush PA-C Primary Care Provide r Source Comments [facility],non-owned Affiliates and Associated Physician Practices is amultiple site organization consisting of ambulatory clinics and hospital sitesin [place], [place], [place] and [place]. This disclosure is being madepursuant to the Care Everywhere program and may not contain all information available regarding this patient. Last updated 17.[facility] [employer] Allergies Active Allergy Reactions Criticality Noted Date [...] 99 10/19/2023 9:44 AM CDT Temperature 36.7 C (98.1 F) 01/02/2023 7:06 AM CUT PRESS OPERATOR Respiratory Rate 18 01/02/2023 7:06 AM CUT PRESS OPERATOR Oxygen Saturation 98% 01/02/2023 7:06 AM CUT PRESS OPERATOR Inhaled Oxygen Concentration - - Weight 88.5 [...] Description 10/24/2024 9:45 AM CDT Office Visit [facility] [place] [address] Miguel Larkin MD [address] [place] [address] [place] [address] Procedures Procedure Name Priority Date/Time Associated Diagnosis Comments BASIC METABOLIC PANEL (CALCIUM TOTAL) Routine 01/02/2023 1:23 AM CUT PRESS OPERATOR Thyroid cancer (HCC) from Last 3 Months or Most Recently Relevant to Health Maintenance Results * (ABNORMAL) BASIC METABOLIC PANEL (CALCIUM TOTAL) (01/02/2023 1:23 AM CUT PRESS OPERATOR) BUN 9 7 - 26 mg/dL 01/02/2023 2:04 AM [facility] Creatinine 0.69 0.56 - 0.96 mg/dL 01/02/2023 2:04 AM [facility] Sodium 137 136 - 145 mmol/L 01/02/2023 2:04 AM [facility] Potassium 3.7 3.5 - 4.5 mmol/L 01/02/2023 2:04 AM [facility] Chloride 105 98 - 107 mmol/L 01/02/2023 2:04 AM [facility] CO2 24 22 - 29 mmol/L 01/02/2023 2:04 AM [facility] Glucose 116(H) 70 - 115 mg/dL 01/02/2023 2:04 AM [facility] Calcium 8.7 8.4 - 10.2 mg/dL 01/02/2023 2:04 AM [facility] Anion Gap 8 6 - 16 01/02/2023 2:04 AM [facility] BUN/Creatinine Ratio 13 7 - 23 01/02/2023 2:04 AM [facility] Osmolality Calculated 284 275 - 295 mOsm/kg 01/02/2023 2:04 AM [facility] eGFR by CKD-EPI >90 >=90 mL/min/1.7 3 m2 01/02/2023 2:04 AM [facility] Blood BLOOD SPECIMEN / Unknown Lab Venipuncture / Unknown 01/02/2023 1:23 AM CUT PRESS OPERATOR 01/02/2023 1:34 AM [facility] Miguel Larkin MD LAB - CHEMISTRY ZULEYMA RODRIGUEZ [facility] Organization Address City/State/ZIP Co de Phone Number [facility] [address] [place] [address], [facility] [phone] from Last 3 Months or Most Recently Relevant to Health Maintenance Advance Directives * Full Code (Latest Code Status on File) Date Activated Date Inactivated Comments 01/01/2023 11:06 AM 01/02/2023 10:25 AM * Full Code Date Activated Date Inactivated Comments 09/12/2022 10:34 AM 09/13/2022 11:54 AM Care Teams Outsole Tacker Relationship Specialty Start Date End Date Sergio Bush PA-C [address] [place] [address] [place] [id number] PCP - General Physician Woodworking Shop Laborer 08/30/22
--- OUTSIDE RECORDS SUMMARY | 2024-03-17 07:01 | XMS_ITS | Continuity of Care Document ---
Author Organization [facility] Address [address] [place] [id number] Phone Care Team Providers Care Practical Nursing Instructor Name Role Phone Mitch Moon MD Unavailable [...] on Encounter Independent Medical Examination [facility], [facility], [id number], [place] tel:[phone] [facility] Right elbow (chief complaint) right shoulder and right wrist (chief complaint) Lateral epicondylitis, right elbowSprain of right rotator cuff capsule, sequelaCarpal tunnel syndrome, right upper limb 4 Sarai Meyer. [address] [place] [address], [place], [place], [id number], [place]. tel:[phone] [facility], [address] [place] [address], [id number], [place] tel:[phone] [facility] No Information 4 Sarai Meyer. [address] [place] [address], [place], [place], [id number], [place]. tel:[phone] [facility], [address], [place], [place], [id number], [place] tel:[phone] [facility] No Information 2 Sarai Meyer. [address] [facility], [place], [place], [id number], [place]. tel:[phone] Family History Family Member Type Diagnosis Age At Onset Mother Problem (finding) Heart Disease Father Problem (finding) Cancer, unknown Mother Problem (finding) Osteoporosis Immunizations Vaccine Date Status Comments influenza, injectable, quadr ivalent, (3 years or older) administered Source: Other Provid er Payers Payer name Insurance type Covered green party ID Authorsevero nickersonpierre(s) Exam Works [id number] Social History Type Description Quantity Date Captured [...] right wrist. 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 She has worked in this capacity with [employer] for 23 years. Ms. Taylor reports that after working as a owtg-zb-jjuj mom for some time, she then worked part-time in the early 1990's as a [employer] for 5 years. After that, she was out of work for a few years until she started working for [employer]. Ms. Taylor explains that as a Red Cross Executive Director with [employer], she works in the [...] care physician, Dr. Edenilson Zepeda MD with [facility], on December 04, 2012. Dr. Zepeda [...] Taylor to Dr. Dennis Christensen MD with [facility]. Ms. Michael anthony saw Dr. Christensen [...] MRI was performed at [facility] on March 27, 2013. The MRI was [...] four days ago. 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 Al Garcia MD. This MRI was interpreted as ...1. Moderate common extensor tendinopathy at lateral humeral epicondyle (lateral epicondylitis). No significant tear. Mild strain of extensor digitorum muscle. 2. Mild common flexor tendinopathy at medial humeral epicondyle (medial epicondylitis). No tear... Ms. Talyor recalls having a few cortisone injections given by Dr. Rawls. She reports that she also saw Dr. Fred Child, and she was given a cortisone injection from him as well. There are occupational therapy notes from [facility] ordered by Dr. Fred Child. The therapy notes extend from December 15, 2014 through February 25, 2015. The Initial Evaluation from the occupational therapist at [facility] notes that ...the patient related her right dominant elbow has bothered her for a few years but really became painful in February of this year due tothe new scanning system she must work with in the [employer]... She had injections in the elbow in June 2014 and her workload reduced because of reduced student population on campus her pain decreased. Now that the population is large again with school in session her pain is worse again.She is unable to get away from the elbow pain and is losing function... The Re-Evaluation note from [facility] dated February 25, 2015 indicated that Ms. Taylor attended occupational therapy twice per week for a total of 18 visits. The occupational therapist documented ...her employer has not modified her work station in an effort to remove the causative risk factor believed to be causing this injury... 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 Dr. Fred Child MD eventually took Ms. Taylor to surgery on June 09, 2015 at [facility] for her right elbow lateral epicondylitis. She was noted to have ...significant degeneration of the extensor carpi radialis brevis tendon origin with associated bony changes oflateral epicondyles... She underwent a right open debridement of lateral epicondyle and extensor wad with anconeus flap. Post-operatively, Ms. Taylor worked with occupational therapy [facility] in [place], [place] from 2015 through August 26, 2015. [...] note from Dr. Dianne Sparks MD with [facility] dated May 12, 2019. Dr. Sparks reported [...] note from Dr. Dianne Sparks MD with [facility] dated May 12, 2019. Dr. Sparks reported [...] right wrist. 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 Ms. 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 After that, she was out of work for a few years until she started working for [employer]. Ms. 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 Edenilson Zepeda MD with [facility], on December 04, 2012. Dr. Zepeda [...] Taylor to Dr. Dennis Christensen MD with [facility]. Ms. Taylor saw Dr. Christensen in [...] MRI was performed at [facility] on March 27, 2013. The MRI was [...] four days ago. 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 There is another MRI report from [facility] dated June 17, 2014, ordered by [...] well. There are occupational therapy notes from [facility] ordered by Dr. Fred Child. The therapy notes extend from December 15, 2014 through February 25, 2015. The Initial Evaluation from the occupational therapist at [facility] notes that ...the patient related her right dominant elbow has bothered her for a few years but really became painful in February of this year due to the new scanning system she must work with in the [employer]... She had injections in the elbow in June 2014 and her workload reduced because of reduced student population on campus her pain decreased. Now that the population is large again with school in session her pain is worse again. She is unable to get away from the elbow pain and is losing function... The Re-Evaluation note from [facility] dated February 25, 2015 indicated that Ms. Taylor attended occupational therapy twice per week for a total of 18 visits. The occupational therapist documented ...her employer has not modified her work station in an effort to remove the causative risk factor believed to be causing this injury... 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 Dr. Fred Child MD eventually took Ms. Taylor to surgery on June 09, 2015 at [facility] for her right elbow lateral epicondylitis. 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 She underwent a right open debridement of lateral epicondyle and extensor wad with anconeus flap. Post-operatively, Ms. Taylor worked with occupational therapy again at [facility] in [place], [place] from 2015 through August 26, 2015. [...] right elb ow impression I performed [facility] and physical examination for Ms. Yoselin Heredia, and I also reviewed the medical records provided, including a prescription for physical therapy for the low back from July 06, 1999, a physical therapy note from [facility] dated July 11, 1999, another PT prescription for the neck and upper back dated November 03, 2005, additional PT notes from [facility] from November 15, 2005 through October 18, 2009, primarily for low back pain, office notes from Dr. Edenilson Zepeda MD from September 21, 2010 at which time Ms. Taylor presented to [facility], emergency room notes from [facility] dated July 03, 2011 when Ms. [...] right elbow pain, physical therapy notes from [facility] dated December 10, 2012 through February 13, 2013 relative to a right cervical strain, right rotator cuff tendonitis, and right elbow extensor tendonitis, office notes from Dr. Dennis Christensen MD with [facility] dated March 05, 2013 for right elbow pain, an MRI right elbow report from [facility] dated March 27, 2013, additional office notes from Dr. Zepeda dated July 28, 2013 through March 09, 2024 with regards to lab findings suggesting pre-diabetes, labyrinthitis, and then a recurrence of right shoulder and elbow pain, a physical therapy prescription to [facility] for the right shoulder and right elbow dated March 09, 2014, physical therapy notes from [facility] from March 11, 2014 through April 23, 2014, office notes from Dr. Zepeda dated April 06, 2014 regarding headaches, an MRI right elbow report from [facility] dated June 17, 2014, occupational therapy notes from [facility] from December 15, 2014 through February 25, 2015 relative to right elbow tendonitis, the operative report from Dr. Fred Child MD at [facility] dated June 09, 2015, additional [facility] notes [facility] 2015 through August 26, 2015 [...] notes from Dr. Dulce Villalta MD with [facility] dated February 14, 2017 regarding chills and a cough, office notes from Dr. 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 The claimant reported that after working as a sdwj-ig-mxcc mom for some time, she then worked part-time in the early 1989's as a [employer] for 5 years. After that, she was out of work for a few years until she started working for [employer]. The claimant went on to explain that as a Red Cross Executive Director with [employer], she has worked in [...] and which I would consider to be fng-ezyt-gdfoqum. She also has a history of right [...] shoulder, or right wrist. She does take wirm-tau-snyhquu Ibuprofen as needed, and she uses Voltaren topical gel nmqg-qfa-oddhlqp. These are both appropriate. 14. Is additional [...]
--- OUTSIDE RECORDS SUMMARY | 2024-03-17 07:01 | XMS_ITS ---
Author Organization [facility] Address [address] [place] [address] Care Team Providers Care B2B Sales Consultant Name Role Phone Sergio Bush Primary Care Provider VIR[place]IA Rangel [phone] Encounters Encounter Location Date Provider Diagnosis [facility] [address] [facility] [address] [place] [address] 09/17/2023 VIR[place]IA MCKAY Plan Of Treatment No Information Progress Notes * Kelly SOODOB:[birth year] (58 yo F)Acc No.[id number]:09/17/2023 Patient: Yoselin WEBSTER :1965 A ge:58 Y S ex:Female Address:[address] [place] [address] * true * Date: Generated for Cuauhtemoc mcclendon/Maeve/eTransmitting on: 0 03/17/2024 07:01 AM SEED CLEANING MANAGER
--- OUTSIDE RECORDS SUMMARY | 2024-03-17 07:01 | XMS_ITS | Clinical Summary ---
Author Organization [facility] Address [address] [facility] [place] [address] Care Team Providers Care Oven Heater Helper Name Role Phone Sergio Bush PA-C Primary Care Provide r Source Comments [facility],non-owned Affiliates and Associated Physician Practices is amultiple site organization consisting of ambulatory clinics and hospital sitesin [place], [place], [place] and [place]. This disclosure is being madepursuant to the Care Everywhere program and may not contain all information available regarding this patient. Last updated 17.[facility] Allergies Active Allergy Reactions Criticality Noted Date [...] 36.7 C (98.1 F) 01/02/2023 7:06 AM PATENT LAWYER Respiratory Rate 18 01/02/2023 7:06 AM PATENT LAWYER Oxygen Saturation 98% 01/02/2023 7:06 AM PATENT LAWYER Inhaled Oxygen Concentration - - Weight 88.5 kg (195 lb) 10/19/2023 9:44 AM CDT Height 162.6 cm (5' 4 ) 10/19/2023 9:44 AM CDT Body Mass Index 33.47 10/19/2023 9:44 AM CDT Plan of Treatment Upcoming Encounters Date Type Department Care Team (Late st Contact Info) Description 10/24/2024 9:45 AM CDT Office Visit [facility] - ENT [address] [facility], [place] [address] Miguel Larkin MD [facility] [place] [address] Health Maintenance Due Date Last [...] PANEL (CALCIUM TOTAL) Routine 01/02/2023 1:23 AM PATENT LAWYER Thyroid cancer (HCC) from Last 3 Months or Most Recently Relevant to Health Maintenance Results * (ABNORMAL) BASIC METABOLIC PANEL (CALCIUM TOTAL) (01/02/2023 1:23 AM [facility]) BUN 9 7 - 26 mg/dL 01/02/2023 2:04 AM [facility] Creatinine 0.69 0.56 - 0.96 mg/dL 01/02/2023 2:04 AM [facility] Sodium 137 136 - 145 mmol/L 01/02/2023 2:04 AM [facility] Potassium 3.7 3.5 - 4.5 mmol/L 01/02/2023 2:04 AM [facility] Chloride 105 98 - 107 mmol/L 01/02/2023 2:04 AM [facility] CO2 24 22 - 29 mmol/L 01/02/2023 2:04 AM [facility] Glucose 116(H) 70 - 115 mg/dL 01/02/2023 2:04 AM [facility] Calcium 8.7 8.4 - 10.2 mg/dL 01/02/2023 2:04 AM [facility] Anion Gap 8 6 - 16 01/02/2023 2:04 AM [facility] BUN/Creatinine Ratio 13 7 - 23 01/02/2023 2:04 AM [facility] Osmolality Calculated 284 275 - 295 mOsm/kg 01/02/2023 2:04 AM [facility] eGFR by CKD-EPI >90 >=90 mL/min/1.7 3 m2 01/02/2023 2:04 AM [facility] Blood BLOOD SPECIMEN / Unknown Lab Venipuncture / Unknown 01/02/2023 1:23 AM PATENT LAWYER 01/02/2023 1:34 AM PATENT LAWYER Miguel Larkin MD LAB - CHEMISTRY [facility]IG[facility] [address] [place] [address], [facility] [phone] from Last 3 Months or Most Recently Relevant to Health Maintenance Advance Directives * Full Code (Latest Code Status on File) Date Activated Date Inactivated Comments 01/01/2023 11:06 AM 01/02/2023 10:25 AM * Full Code Date Activated Date Inactivated Comments 09/12/2022 10:34 AM 09/13/2022 11:54 AM Care Teams Oven Heater Helper Relationship Specialty Start Date End Date Sergio Bush PA-C [address] [facility] [address] [place] [address] PCP - General Physician Space Control Agent 08/30/22
--- OUTSIDE RECORDS SUMMARY | 2024-03-17 07:01 | XMS_ITS | Clinical Summary ---
Author Organization [facility] Care Team Providers Care Oil Burner Name Role Phone Sergio Bush Primary Care Provider Mariusz Carr MD Unavailable [phone] Fernando Hernández MD PhD Unavailable [phone] Miguel Larkin MD Unavailable [phone] Allergies Active Allergy Reactions Criticality Noted Date [...] 04/12/2020 Assessment & Plan (04/12/2020 9:38 AM CHAR DUST CLEANER AND SALVAGER): Due to the patient stating that her restless legs are still bothering her at night, I have increased her Requip to 1 mg p.o. at bedtime. The patient will also continue with iron 325 mg daily as tolerated. IRISH (obstructive sleep apnea) 04/12/2020 Assessment & Plan (04/12/2020 9:37 AM CHAR DUST CLEANER AND SALVAGER): The patient will continue with CPAP therapy at 9 cm water pressure to treat obstructive sleep apnea. Patient denied need for supplies. The DME company is [employer]. The patient is benefitting from CPAP therapy. Pain of hand 12/11/2014 Encounters Date Type Department Care Team Description 03/05/2024 Orders Only [facility] Radiation Oncology [address] [place] [address] Edenilson Valadez III, MD PhD Malignant neoplasm of thyroid gland (HCC) (Primary Dx) 02/01/2024 Telephone [facility] Radiation Oncology [address] [place] [address] [place] Scheduling Appointments from Last 3 Months Immunizations [...] on file Legal Sex Female 10:11 PM CHAR DUST CLEANER AND SALVAGER Gender Identity Not on file Sexual Orientation Not on file Obstetrics History Last Filed Vital Signs Vital Sign Reading Time Taken Comments Blood Pressure 124/82 04/12/2020 9:18 AM CHAR DUST CLEANER AND SALVAGER Pulse 77 04/12/2020 9:18 AM CHAR DUST CLEANER AND SALVAGER Temperature 36.7 C (98 F) 04/12/2020 9:18 AM CHAR DUST CLEANER AND SALVAGER Respiratory Rate - - Oxygen Saturation 99% 04/12/2020 9:18 AM CHAR DUST CLEANER AND SALVAGER Inhaled Oxygen Concentration - - Weight 92.5 [...] 3, 11/24/2019, 11/22/2018, Additional history exists Insurance [facility] CHO[employer] PLUS [employer] [facility] CHO[employer] PL[employer] Care Teams Oil Burner Relationship Specialty Start Date End Date Sergio Bush PA [address] [place], [place] [id number] PCP - General Physician Shredding Machine Knife Changer 09/17/19 Mariusz Carr MD [address] [place], [place] [id number] Referring Physician Internal Medicine 02/09/23 Fernando Hernández MD PhD [address] [place] [address] Radiation Oncologist Radiation Oncology 03/20/23 Miguel Larkin MD [address] [facility] DEPT OTOLARYNGOLOGY, [address] [place] [address] Referring Physician Otolaryngology 03/20/23
--- OUTSIDE RECORDS SUMMARY | 2024-03-17 07:02 | XMS_ITS | Encounter Summary ---
Author Organization [facility] Healthcare Address [address] [place] [address] Care Team Providers Care Cafe Or Restaurant Manager Name Role Phone Sergio Bush Primary Care Provider Mariusz Carr MD Unavailable [phone] Fernando Hernández MD PhD Unavailable [phone] Miguel Larkin MD Unavailable [phone] Encounter Details Date Type Department Care Team (Late st Contact Info) Description 03/09/2023 Telephone [facility] Advanced Medicine Radiation Oncology [address] [facility] [place] [address] Alexander Rao, RN Social History Tobacco Use Types Packs/Day Years Used Date Smoking Tobacco: Never Smokeless Tobacco: Never Personal Safety Answer Date Recorded Getting School Help Needed Not on file 02/09 Comments Unknown Sex and Gender Information Value Date Recorded Sex Assigned at Not on file Legal Sex Female 10:11 PM SAFETY TECH Gender Identity Not on file Sexual Orientation Not on file documented as of this encounter Plan of Treatment Not on file documented as of this encounter Visit Diagnoses Not on filedocumented in this encounter Care Teams Cafe Or Restaurant Manager Relationship Specialty Start Date End Date Sergio Bush PA [address] [address] PCP - General Physician Rotary Planer Set Up Operator 09/17/19 Mariusz Carr MD [address] [place] [address] Referring Physician Internal Medicine 02/09/23 Fernando Hernández MD PhD [address] [facility] [address] [facility] [address] [place] [address] Radiation Oncologist Radiation Oncology 03/20/23 Miguel Larkin MD [address] [facility] DEPT OTOLARYNGOLOGY, [address] [place] [address] Referring Physician Otolaryngology 03/20/23 documented as of this encounter
--- OUTSIDE RECORDS SUMMARY | 2024-03-17 07:02 | XMS_ITS | Patient Health Summary ---
Author Organization [facility] Address [address] [facility] [place] [address] Care Team Providers Care Tipping Machine Operator Name Role Phone Sergio Bush PA-C Primary Care Provide r Note from [facility],non-owned Affiliates and Associated Physician Practices is amultiple site organization consisting of ambulatory clinics and hospital sitesin [place], [place], [place] and [place]. This disclosure is being madepursuant to the Care Everywhere program and may not contain all information available regarding this patient. Last updated 17.[facility] Allergies * Hydrocodone-Acetaminophen(Nausea and/or Vomiting,Vomiting) -Low Criticality [...] 36.7 C (98.1 F) 01/02/2023 7:06 AM DIRECTOR OF RECRUITMENT Respiratory Rate 18 01/02/2023 7:06 AM DIRECTOR OF RECRUITMENT Oxygen Saturation 98% 01/02/2023 7:06 AM DIRECTOR OF RECRUITMENT Inhaled Oxygen Concentration - - Weight 88.5 [...] TISSUE(Performed 01/01/2023) Performed for Thyroid nodule * OH THYROIDECTOMY,MALIG,LTD NECK SURG(Performed 01/01/2023) Performed for Thyroid nodule * ENDOTRACHEAL TUBE NOTE(Performed 01/01/2023) * TYPE + SCREEN PANEL(Performed 01/01/2023) Performed for Pre-op evaluation * PT-INR [facility](Performed 11/17/2022) * COMPREHENSIVE METABOLIC PANEL(Performed 11/17/2022) * CBC W AUTO DIFFERENTIAL(Performed 11/17/2022) * OH LARYNGOSCOPY,FLEX FIBER,DIAGNOSTIC(Performed 11/17/2022) Performed for Vocal cord paralysis * OH LARYNGOSCOPY,FLEX FIBER,DIAGNOSTIC(Performed 10/13/2022) Performed for Thyroid nodule, Change in voice, Dysphonia * OH LARYNGOSCOPY,FLEX FIBER,DIAGNOSTIC(Performed 09/13/2022) Performed for Dysphonia * [...] TOTAL)(Performed 08/30/2022) Performed for Pre-op examination * OH LARYNGOSCOPY,FLEX FIBER,DIAGNOSTIC(Performed 08/11/2022) Performed for Thyroid nodule, Change in voice Results * (ABNORMAL) CBC W AUTO DIFFERENTIAL (01/02/2023 1:23 AM DIRECTOR OF RECRUITMENT) Only the most recent of2 resultswithin the time period is included. WBC 10.5 3.5 - 10.5 10 3/uL 01/02/2023 1:51 AM [facility] RBC 3.80 3.80 - 5.20 10 6/uL 01/02/2023 1:51 AM [facility] Hemoglobin 12.4 12.0 - 15.6 g/dL 01/02/2023 1:51 AM [facility] Hematocrit 35.7 35.0 - 45.0 % 01/02/2023 1:51 AM [facility] MCV 93.9 80.7 - 98.3 fL 01/02/2023 1:51 AM [facility] MCH 32.6 26.7 - 34.0 pg 01/02/2023 1:51 AM [facility] MCHC 34.7 30.8 - 35.9 g/dL 01/02/2023 1:51 AM [facility] RDW-SD 42.5 36.0 - 50.0 fL 01/02/2023 1:51 AM [facility] RDW-CV 12.2 11.2 - 14.8 % 01/02/2023 1:51 AM [facility] Platelet Count 270 150 - 400 10 3/uL 01/02/2023 1:51 AM [facility] MPV 10.0 9.4 - 12.9 fL 01/02/2023 1:51 AM [facility] nRBC Absolute 0.00 0 10 3/uL 01/02/2023 1:51 AM [facility] nRBC Auto 0.0 0 /100 WBC 01/02/2023 1:51 AM [facility] Neutrophils % 68.3 35.0 - 70.0 % 01/02/2023 1:51 AM [facility] Lymphocytes % 20.1 20.0 - 43.0 % 01/02/2023 1:51 AM [facility] Monocytes % 10.9 5.0 - 13.0 % 01/02/2023 1:51 AM [facility] Eosinophils % 0.1 0.0 - 6.0 % 01/02/2023 1:51 AM [facility] Basophil % 0.2 0.0 - 2.0 % 01/02/2023 1:51 AM [facility] Neutrophils Absolute 7.18(H) 1.60 - 7.00 10 3/uL 01/02/2023 1:51 AM [facility] Lymphocyte Absolute 2.11 1.10 - 3.90 10 3/uL 01/02/2023 1:51 AM [facility] Monocytes Absolute 1.14(H) 0.26 - 1.07 10 3/uL 01/02/2023 1:51 AM [facility] Eosinophils Absolute 0.01 0.00 - 0.47 10 3/uL 01/02/2023 1:51 AM [facility] Basophils Absolute 0.02 0.00 - 0.08 10 3/uL 01/02/2023 1:51 AM [facility] Immature Granulocytes % 0.4 0.0 - 1.0 % 01/02/2023 1:51 AM [facility] Immature Granulocytes Absolute 0.04 01/02/2023 1:51 AM [facility] Blood BLOOD SPECIMEN / Unknown Lab Venipuncture / Unknown 01/02/2023 1:23 AM DIRECTOR OF RECRUITMENT 01/02/2023 1:34 AM [facility] Miguel Larkin MD LAB - HEMATOLOGY ORD ERABLES [facility] [address] [place] [address], [facility] [phone] * (ABNORMAL) BASIC METABOLIC PANEL (CALCIUM TOTAL) (01/02/2023 1:23 AM DIRECTOR OF RECRUITMENT) Only the most recent of3 resultswithin the time period is included. BUN 9 7 - 26 mg/dL 01/02/2023 2:04 AM [facility] Creatinine 0.69 0.56 - 0.96 mg/dL 01/02/2023 2:04 AM [facility] Sodium 137 136 - 145 mmol/L 01/02/2023 2:04 AM [facility] Potassium 3.7 3.5 - 4.5 mmol/L 01/02/2023 2:04 AM [facility] Chloride 105 98 - 107 mmol/L 01/02/2023 2:04 AM [facility] CO2 24 22 - 29 mmol/L 01/02/2023 2:04 AM [facility] Glucose 116(H) 70 - 115 mg/dL 01/02/2023 2:04 AM [facility] Calcium 8.7 8.4 - 10.2 mg/dL 01/02/2023 2:04 AM [facility] Anion Gap 8 6 - 16 01/02/2023 2:04 AM [facility] BUN/Creatinine Ratio 13 7 - 23 01/02/2023 2:04 AM [facility] Osmolality Calculated 284 275 - 295 mOsm/kg 01/02/2023 2:04 AM [facility] eGFR by CKD-EPI >90 >=90 mL/min/1.7 3 m2 01/02/2023 2:04 AM [facility] Blood BLOOD SPECIMEN / Unknown Lab Venipuncture / Unknown 01/02/2023 1:23 AM DIRECTOR OF RECRUITMENT 01/02/2023 1:34 AM [facility] Miguel Larkin MD LAB - CHEMISTRY ZULEYMA RODRIGUEZ [facility] Organization Address City/State/ZIP Co de Phone Number [facility] [address] [place] [phone], [facility] [phone] * PHOSPHORUS BLOOD (01/02/2023 1:23 AM [facility]) Phosphorus 3.4 2.9 - 5.1 mg/dL 01/02/2023 2:04 AM [facility] Blood BLOOD SPECIMEN / Unknown Lab Venipuncture / Unknown 01/02/2023 1:23 AM DIRECTOR OF RECRUITMENT 01/02/2023 1:34 AM DIRECTOR OF RECRUITMENT Miguel Larkin MD LAB - CHEMISTRY ZULEYMA RODRIGUEZ Performing Organization Address City/[facility]/ZIP Co de Phone Number [address] [address], [facility] [phone] * MAGNESIUM BLOOD (01/02/2023 1:23 AM DIRECTOR OF RECRUITMENT) Only the most recent of2 resultswithin the time period is included. Magnesium 1.8 1.6 - 2.6 mg/dL 01/02/2023 2:04 AM DIRECTOR OF RECRUITMENT [facility] Blood BLOOD SPECIMEN / Unknown Lab Venipuncture / Unknown 01/02/2023 1:23 AM DIRECTOR OF RECRUITMENT 01/02/2023 1:34 AM DIRECTOR OF RECRUITMENT Miguel Larkin MD LAB - CHEMISTRY ZULEYMA RODRIGUEZ Performing Organization Address [facility] [[email or web address]] Co de Phone Number [address] [address], [facility] [phone] * PTH INTACT W/O CALCIUM (01/01/2023 9:45 AM DIRECTOR OF RECRUITMENT) PTH Intact 23.8 8.0 - 77.0 pg/mL 01/01/2023 10:26 AM DIRECTOR OF RECRUITMENT [facility] Blood BLOOD SPECIMEN / Unknown Venipuncture / Unknown 01/01/2023 9:45 AM DIRECTOR OF RECRUITMENT 01/01/2023 9:51 AM DIRECTOR OF RECRUITMENT Miguel Larkin MD LAB - CHEMISTRY ZULEYMA RODRIGUEZ [address] [address], [facility] [phone] * ALBUMIN BLOOD (01/01/2023 9:45 AM DIRECTOR OF RECRUITMENT) Albumin 3.6 3.4 - 5.0 g/dL 01/01/2023 10:21 AM DIRECTOR OF RECRUITMENT [facility] Blood BLOOD SPECIMEN / Unknown Venipuncture / Unknown 01/01/2023 9:45 AM DIRECTOR OF RECRUITMENT 01/01/2023 9:51 AM DIRECTOR OF RECRUITMENT Miguel Larkin MD LAB - CHEMISTRY ZULEYMA RODRIGUEZ [facility] Organization Address City/State/ZIP Co de Phone Number [facility] [address] [place] [address], [facility] [phone] * PATHOLOGY TISSUE (01/01/2023 8:41 AM DIRECTOR OF RECRUITMENT) Only the most recent of2 resultswithin the time period is included. 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 01/09/2023 3:12 PM [facility] Clinical History The patient is a 57-year-old woman with history of right thyroid nodule who previously underwent thyroid lobectomy (September 2022) showing papillary thyroid carcinoma with positive margins (right lobe anterior and posterior) and lymphatic invasion. Operative procedure: Left completion thyroid lobectomy with superior parathyroid identified and preserved. Inferior parathyroid not identified. 01/09/2023 3:12 PM [facility] Gross Description The requisition and [...] bisected (0.8 cm nodule)./AJ 01/09/2023 3:12 PM [facility] Pathologist Location at [facility] 01/09/2023 3:12 PM [facility] Disclaimer The performance characteristics of all immunohistochemical and indirect immunofluorescence stains (if any) cited in this report were determined by the Histopathology Laboratory of [facility]. Some of these tests were developed by [...] the attending (teaching) pathologist. 01/09/2023 3:12 PM [facility] Embedded Images 01/09/2023 3:12 PM [facility] Biopsy, Excision (Thyroid, Left Lobe) 01/01/2023 8:41 AM DIRECTOR OF RECRUITMENT 01/01/2023 11:09 AM DIRECTOR OF RECRUITMENT Comment:Pre-op diagnosis: Thyroid nodule Miguel Larkin MD LAB - PATHOLOGY/CYTO LOGY ORDERABLES [facility] [address] [phone] * ETT LINE PERFORMABLE (01/01/2023 7:48 AM DIRECTOR OF RECRUITMENT) Narrative Jamal Recio Anes Asst - 01/01/2023 7:48 AM DIRECTOR OF RECRUITMENT Jamal Recio Anes Assserena 01/01/2023 7:49 AM Endotracheal Tube Placement: Patient Location: OR. Intubation Event Date/Time: 01/01/2023 7:37 AM Procedure: intubation (31703). Procedure Section: Sedation: under general anesthesia. Indications for Airway Management: anesthesia Induction: standard IV Patient Position: sniffing Mask Ventilation: easy. Blade Type: Neri Blade [...] monitor and CO2 detector Tube secured with: adhesive tape. Dentition unchanged? Yes Difficult Airway? No. Procedure Start Time: 01/01/2023 7:37 AM. Staff Section Anesthesia Provider: Jamal Recio Anes Asst, Performed the procedure Provider #1: Darin Ag II, MD. Additional Comments: Atraumatic intubation, dentition as in pre-op. . Darin Ag II, MD GENERAL ANESTHESIA ORDERABLES * TYPE + SCREEN PANEL (01/01/2023 6:25 AM DIRECTOR OF RECRUITMENT) Only the most recent of3 resultswithin the time period is included. Antibody Screen NEG 7:31 AM [facility] ABO Rh A NEG 01/01/2023 7:31 AM [facility] Blood Bank BLOOD SPECIMEN / Unknown Venipuncture / Unknown 01/01/2023 6:25 AM DIRECTOR OF RECRUITMENT 01/01/2023 6:29 AM DIRECTOR OF RECRUITMENT [place] CLOCK MAKER-DENTAL TECHNICIAN INSTRUCTOR LAB - BLO OD BANK ORDERABLES [facility] [address] [place] [address], [facility] [phone] * PT-INR [facility] (11/17/2022 12:06 PM CDT) PT 13.1 12.1 - 14.8 Seconds 11/17/2022 12:54 PM CDT [facility] INR 1.0 See Comment 11/17/2022 12:54 PM [facility] Comment:The suggested therap eutic range for standard coumadin (warfarin) therapy is an INR of 2.0-3.0. For high-risk patients (Mechanical Mitral Valve Prosthesis, etc.), the suggested prophylactic therapeutic range is an INR of 2.5-3.5. Blood BLOOD SPECIMEN / Unknown Lab Venipuncture / Unknown 11/17/2022 12:06 PM CDT 11/17/2022 12:07 PM CDT Gregory Sarabia MD LAB - COAGULATION ORDERABLES [facility] [address] [place] [address] [phone] * (ABNORMAL) COMPREHENSIVE METABOLIC PANEL (11/17/2022 12:06 PM CDT) BUN 10 7 - 26 mg/dL 11/17/2022 12:37 PM [facility] Creatinine 0.75 0.56 - 0.96 mg/dL 11/17/2022 12:37 PM [facility] Sodium 144 136 - 145 mmol/L 11/17/2022 12:37 PM [facility] Potassium 4.0 3.5 - 4.5 mmol/L 11/17/2022 12:37 PM [facility] Chloride 107 98 - 107 mmol/L 11/17/2022 12:37 PM [facility] CO2 27 22 - 29 mmol/L 11/17/2022 12:37 PM [facility] Glucose 81 70 - 115 mg/dL 11/17/2022 12:37 PM [facility] Calcium 9.8 8.4 - 10.2 mg/dL 11/17/2022 12:37 PM [facility] Protein Total 7.9 6.0 - 8.3 g/dL 11/17/2022 12:37 PM [facility] Albumin 4.2 3.4 - 5.0 g/dL 11/17/2022 12:37 PM [facility] Bilirubin Total 0.4 0.2 - 1.2 mg/dL 11/17/2022 12:37 PM [facility] Alkaline Phosphatase 62 40 - 150 U/L 11/17/2022 12:37 PM [facility] ALT 24 5 - 55 U/L 11/17/2022 12:37 PM [facility] AST 25 5 - 34 U/L 11/17/2022 12:37 PM [facility] Anion Gap 10 6 - 16 11/17/2022 12:37 PM [facility] BUN/Creatinine Ratio 13 7 - 23 11/17/2022 12:37 PM [facility] Osmolality Calculated 296(H) 275 - 295 mOsm/kg 11/17/2022 12:37 PM [facility] Albumin/Globulin Ratio 1.1 1.1 - 2.3 11/17/2022 12:37 PM [facility] eGFR by CKD-EPI >90 >=90 mL/min/1.7 3 m2 11/17/2022 12:37 PM [facility] Blood BLOOD SPECIMEN / Unknown Lab Venipuncture / Unknown 11/17/2022 12:06 PM CDT 11/17/2022 12:08 PM CDT Gregory Sarabia MD LAB - CHEMISTRY OR DERABLES Performing Organization Address City/State/[facility] [[email or web address]] Co de Phone Number [facility] [address] [place] [address], [facility] [phone] * OH LARYNGOSCOPY,FLEX FIBER,DIAGNOSTIC (11/17/2022 11:26 AM CDT) Narrative Miguel Larkin MD - 11/17/2022 11:26 AM CDT Miguel Larkin MD 11/17/2022 11:28 AM Procedure Note Endoscopy Type: Laryngoscopy Endoscope: 4mm flexible nasopharyngoscopy Anesthesia: topical lidocaine Procedure Details: The patient was sitting upright [...] True vocal folds move completely and symmetrically. No lesions seen. Condition: Stable. Patient tolerated procedure well. Complications: None Miguel Larkin MD PROCEDURE/MINOR SURG ICAL ORDERABLES * OH LARYNGOSCOPY,FLEX FIBER,DIAGNOSTIC (10/13/2022 1:42 PM CDT) Narrative Marilyn Lucas MD - 10/13/2022 1:42 PM CDT Marilyn Lucas MD 10/13/2022 4:29 PM Procedure Note Endoscopy Type: Laryngoscopy Endoscope: 4mm flexible nasopharyngoscopy Anesthesia: topical lidocaine Procedure Details: The patient was sitting upright [...] left but much improved from prior exam. Condition: Stable. Patient tolerated procedure well. Complications: None Miguel Larkin MD PROCEDURE/MINOR SURG ICAL ORDERABLES * OH LARYNGOSCOPY,FLEX FIBER,DIAGNOSTIC (09/13/2022 5:03 PM CDT) Narrative Miguel Larkin MD - 09/13/2022 5:03 PM CDT Miguel Larkin MD 09/13/2022 5:04 PM Procedure Note Endoscopy Type: Laryngoscopy Endoscope: 4mm flexible nasopharyngoscopy Anesthesia: topical lidocaine Procedure Details: The patient was sitting upright [...] some tone and occasional flickering. Condition: Stable. Patient tolerated procedure well. Complications: None Miguel Larkin MD PROCEDURE/MINOR SURG ICAL ORDERABLES * IV PLACEMENT PERFORMABLE (09/12/2022 8:09 AM CDT) Orly Burden APRN-CRNA - 09/12/2022 8:09 AM CDT Orly Bucio APRN-CRNA 09/12/2022 8:09 AM Peripheral IV Line Placement: Patient Location: OR Procedure: IV start (80471). Procedure Section: Skin Prep: alcohol. Orientation: left Location: hand Local Anesthetic Used? No Catheter Gauge: 20 Number of Attempts: 1. Procedure Tolerance: performed while patient under general anesthesia. Procedure Start Time: 09/12/2022 7:40 AM. Staff Section Anesthesia Provider: Orly Bucio APRN-CRNA, Performed the procedure Israel Lopez MD GENERAL ANESTHESIA O RDERABLES * ETT LINE PERFORMABLE (09/12/2022 8:07 AM CDT) Orly Burden APRN-CRNA - 09/12/2022 8:07 AM CDT Olry Bucio APRN-CRNA 09/12/2022 8:08 AM Endotracheal Tube Placement: Patient Location: OR. Intubation Event Date/Time: 09/12/2022 7:38 AM Procedure: intubation ([id number]). Procedure Section: Sedation: under general anesthesia. Indications for Airway Management: anesthesia Procedure pretreatments used? No Induction: standard IV Patient Position: sniffing Mask Ventilation: easy. Blade Type: Neri Blade [...] ETT in proper place. Tube secured with: adhesive tape. Dentition unchanged? Yes Difficult Airway? No. Procedure Start Time: 09/12/2022 7:38 AM. Staff Section Anesthesia Provider: Orly Bucio, CLOCK MAKER-COMPLIANCE CONSULTANT, Performed the procedure Provider #1: Israel Lopez MD. Israel Lpoez MD GENERAL ANESTHESIA O RDERABLES * HCG URINE QUALITATIVE - POCT (IP) INTERFACED (09/12/2022 5:49 AM CDT) HCG Qual Urine Negative Negative 09/12/2022 5:56 AM CDT [facility] Urine URINE / Unknown 09/12/2022 5 :49 AM CDT 09/12/2022 5:56 AM CDT Miguel Larkin MD LAB - POINT OF CARE ORDERABLES Performing Organization Address City/[facility]/ZIP Co de Phone Number [address] [address], [facility] [phone] * HCG URINE QUAL POCT NOTIFICATION (09/12/2022 5:40 AM CDT) Comment Notification Label Only - See Separate Report 09/12/2022 7:00 AM CDT [facility] Urine URINE / Unknown 09/12/2022 5 :40 AM CDT 09/12/2022 5:40 AM CDT Miguel Larkin MD LAB - URINALYSIS ORD ERABLES Performing Organization Address City/[facility]/ZIP Co de Phone Number [address] [address], [place] [phone] * CBC W/O DIFFERENTIAL (08/30/2022 2:52 PM CDT) WBC 6.6 3.5 - 10.5 10 3/uL 08/30/2022 3:16 PM CDT [facility] RBC 4.46 3.80 - 5.20 10 6/uL 08/30/2022 3:16 PM CDT [facility] Hemoglobin 14.4 12.0 - 15.6 g/dL 08/30/2022 3:16 PM [facility] Hematocrit 43.4 35.0 - 45.0 % 08/30/2022 3:16 PM [facility] MCV 97.3 80.7 - 98.3 fL 08/30/2022 3:16 PM [facility] MCH 32.3 26.7 - 34.0 pg 08/30/2022 3:16 PM [facility] MCHC 33.2 30.8 - 35.9 g/dL 08/30/2022 3:16 PM [facility] RDW-SD 44.9 36.0 - 50.0 fL 08/30/2022 3:16 PM [facility] RDW-CV 12.5 11.2 - 14.8 % 08/30/2022 3:16 PM [facility] Platelet Count 289 150 - 400 10 3/uL 08/30/2022 3:16 PM [facility] MPV 10.2 9.4 - 12.9 fL 08/30/2022 3:16 PM [facility] nRBC Absolute 0.00 0 10 3/uL 08/30/2022 3:16 PM [facility] nRBC Auto 0.0 0 /100 WBC 08/30/2022 3:16 PM [facility] Blood BLOOD SPECIMEN / Unknown Lab Venipuncture / Unknown 08/30/2022 2:52 PM CDT 08/30/2022 3:05 PM CDT Ashli Smith CLOCK MAKER-RAILWAY SWITCHMAN LAB - HEMATOLOGY ORDERABLES Performing Organization Address [facility] [[email or web address]] Co de Phone Number [facility] [address] [place] [address], [facility] [phone] * OH LARYNGOSCOPY,FLEX FIBER,DIAGNOSTIC (08/11/2022 12:06 PM CDT) Narrative Rogelio Chambers MD - 08/11/2022 12:06 PM CDT Rogelio Chambers MD 08/11/2022 3:59 PM Procedure Note Endoscopy Type: Laryngoscopy without stroboscopy Endoscope: Flexible 4mm Scope Anesthesia: Lidocaine 2% and Neosynephrine 1/2% (nasal) Procedure Details: The patient was sitting upright in a chair with the head in a slightly anterior sniffing position. The topical anesthesia was administered and then adequate time was allowed for an anesthetic effect. The endoscope was passed [...] mucosal lesions in the hypopharynx. Condition: Stable. Patient tolerated procedure well. Complications: None The attending was present for and participated in critical portions of the entirety of the procedure. Miguel Larkin MD PROCEDURE/MINOR SURG ICAL ORDERABLES Care Teams Tipping Machine Operator Relationship Specialty Start Date End Date Sergio Bush PA-C [address] [facility] [address] [place] [address] PCP - General Physician Curbing Stonecutter 08/30/22
[2024-03-17 07:57] LABS: Basophils Absolute Auto 0.1 K/mm3 (0.0-0.1); Eosinophils Absolute Auto 0.1 K/mm3 (0-0.3); Eosinophils Percent Auto 1.6 % (0-4.4); Hematocrit 42.9 % (37.0-47.0); Hemoglobin 14.3 g/dL (12.0-15.0); Immature Granulocyte Absolute 0.01 K/mm3 (0.00-0.031); Immature Granulocyte Percent A 0.2 % (0-0.5); Lymphocytes Absolute Auto 1.75 K/mm3 (0.9-3.2); Lymphocytes Percent Auto 35.4 % (18.3-44.2); Mean Corpuscular HGB Conc 33.3 g/dl (32-36); Mean Corpuscular Hemoglobin 32.5 pg (26-34); Mean Corpuscular Volume 97.5 fl (80-100); Mean Platelet Volume 9.8 fl (7.4-10.4); Monocytes Absolute Auto 0.5 K/mm3 (0.1-0.6); Monocytes Percent Auto 9.9 % (2.6-8.5); Neutrophils Absolute Auto 2.6 K/mm3 (1.3-6.7); Neutrophils Percent Auto 51.9 % (45.5-73.1); Platelet Count Result 278 k/mm3 (150-375); Red Cell Distribution Width 12.3 % (11.5-14.5)
[2024-03-17 08:20] LABS: Alanine Aminotransferase 33 U/L (6-35); Albumin Level 4.1 g/dL (3.5-5.1); Alkaline Phosphatase 59 U/L (38-126); Anion Gap 6 mmol/L (4-12); Aspartate Amino Transferase 39 U/L (14-36); Bilirubin,Total 0.6 mg/dL (0.2-1.3); Blood Urea Nitrogen 13 mg/dL (7-17); Calcium 9.4 mg/dL (8.4-10.2); Carbon Dioxide 31 mmol/L (22-30); Chloride 103 mmol/L (98-107); Cholesterol 189 mg/dL (0-200); Estimated Glomerular Filt Rate > 60; Glucose 95 mg/dL (65-110); HDL Direct 55 mg/dL; Sodium 140 mmol/L (137-145); Triglycerides 70 mg/dL (<150)
[2024-03-17 08:31] LABS: LDL Cholesterol Direct 104 mg/dL
== END 2024-03-17 06:59 | disposition home or self-care (01) ==
LOC: ANHLAB 06:59
PROVIDERS: PCP Internal Medicine; Visit Provider Internal Medicine
DX: Z00.00 Encounter for general adult medical examination without abnormal findings (principal)
CPT/HCPCS: 36415; 80053; 80061; 85025

== ENCOUNTER 2024-04-14 07:10 | Outpatient (CLI) | payer BC, SELFPAY ==
--- NOTE | ~2024-04-14 | XR_ITS ---
XR hip RT min 2V Ordering provider: Clarence Soliz APRN History: . M25.551 - Pain in right hip . Comparison: None. FINDINGS: BONES: No acute fracture or dislocation. HIP JOINT SPACES: Mild to moderate osteoarthritic changes. SACROILIAC JOINT SPACES/LUMBAR SPINE: The sacroiliac joint spaces are normal. Mild degenerative figueroa es of the visualized lower lumbar spine. PUBIC SYMPHYSIS: Normal. SOFT TISSUES: Normal. IMPRESSION: No acute osseous abnormality pelvis and right hip. Reviewed, dictated and finalized at location A.
--- OUTSIDE RECORDS SUMMARY | 2024-04-14 07:14 | XMS_ITS ---
Author Organization [facility] Address [address] [facility] [place] [address] [place] [address] Care Team Providers Care Wind Plant Manager Name Role Phone Sergio Bush Primary Care Provider [place] Rangel [phone] Medications Medication SIG (Take, Route, Frequency, Duration) [...] Active Encounters Encounter Location Date Provider Diagnosis [facility] [address] [facility] [address] [place], [place] [id number] 09/17/2023 [place] MCKAY Plan Of Treatment No Information Progress Notes * Kelly SOODOB:[birth year] (58 yo F)Acc No.[id number]:09/17/2023 Patient: Yoselin WEBSTER Provider: Shakeel Mckay MD :1965 A ge:58 Y S ex:Female Date:09/17/2023 Address:[address] [place], [place] Pcp:Sergio Bush Subjective: * Chief Complaints: * [...] Electronic signature of YENY MCKAY MD on 04/14/2024 at 07:14 AM CDT Sign off status: Pending * Provider: Shakeel Mckay MD Date: 0 09/17/2023 Generated for Cuauhtemoc mcclendon/Maeve/Rocky on: 0 04/14/2024 07:14 AM CDT
--- OUTSIDE RECORDS SUMMARY | 2024-04-14 07:14 | XMS_ITS ---
Author Organization [facility] Address [address] [facility] [address] [place] [address] Care Team Providers Care Advertising Layout Worker Name Role Phone Sergio Bush Primary Care Provider [place] Rangel [phone] REASON FOR VISIT Trying to reach patient Encounters Encounter Location Date Provider Diagnosis [facility] [address] [facility] [address] [place] [address] 08/30/2023 [place] MCKAY Plan Of Treatment No Information Progress Notes * Kelly SOODOB:[birth year] (58 yo F)Acc No.[id number]:08/30/2023 Patient: Yoselin WEBSTER :1965 A ge:58 Y S ex:Female Address:[address] [place] [address] [place] [address] * true * Date: Generated for Elissai hakan/Maeve/eTransmitting on: 0 04/14/2024 07:14 AM CDT
--- OUTSIDE RECORDS SUMMARY | 2024-04-14 07:14 | XMS_ITS | Clinical Summary ---
Author Organization [facility] HealthCare Care Team Providers Care Director Of Partner Marketing Name Role Phone Sergio Bush Primary Care Provider Mariusz Carr MD Unavailable Fernando Hernández MD PhD Unavailable [phone] Miguel Larkin MD Unavailable [phone] Allergies Active Allergy Reactions Criticality Noted Date [...] 04/12/2020 Assessment & Plan (04/12/2020 9:38 AM OYSTERMAN): Due to the patient stating that her restless legs are still bothering her at night, I have increased her Requip to 1 mg p.o. at bedtime. The patient will also continue with iron 325 mg daily as tolerated. IRISH (obstructive sleep apnea) 04/12/2020 Assessment & Plan (04/12/2020 9:37 AM OYSTERMAN): The patient will continue with CPAP therapy at 9 cm water pressure to treat obstructive sleep apnea. Patient denied need for supplies. The DME company is [employer]. The patient is benefitting from CPAP therapy. Pain of hand 12/11/2014 Encounters Date Type Department Care Team Description 04/02/2024 Telephone [facility] Radiation Oncology [address] [place] [address] Alexander Rao, EDWIGE 04/01/2024 Telephone [facility] Radiation Oncology [address] [place] [address] Fransisca Craven RN 03/05/2024 Orders Only [facility] Radiation Oncology [address] [place] [address] [place] [address] Edenilson Valadez III, MD PhD Malignant neoplasm of thyroid gland (HCC) (Primary Dx) 02/01/2024 Telephone [facility] Radiation Oncology [facility] [place] [address] Zulema Mayorga MA Scheduling Appointments from Last 3 Months Immunizations Immunization Administration Dates Next Due Flucelvax Influenza Quad [...] on file Legal Sex Female 10:11 PM OYSTERMAN Gender Identity Not on file Sexual Orientation Not on file Obstetrics History Last Filed Vital Signs Vital Sign Reading Time Taken Comments Blood Pressure 124/82 04/12/2020 9:18 AM OYSTERMAN Pulse 77 04/12/2020 9:18 AM OYSTERMAN Temperature 36.7 C (98 F) 04/12/2020 9:18 AM OYSTERMAN Respiratory Rate - - Oxygen Saturation 99% 04/12/2020 9:18 AM OYSTERMAN Inhaled Oxygen Concentration - - Weight 92.5 kg (204 lb) 09/25/2023 10:58 AM CDT Height 162.6 cm (5' 4 ) 09/25/2023 10:58 AM CDT Body Mass Index 35.02 09/25/2023 10:58 AM CDT Plan of Treatment Health Maintenance Due Date Last Done Comments Cervical Cancer Screening 1965 Colon Cancer Screening-Colonoscopy 1965 Depression Screening 1963 Hepatitis C Screening 1963 Hepatitis B Screening 06/28/1981 Regular Well Visit/Exam 18-64 06/28/1981 Zoster Vaccine (1 of 2) 06/28/2013 DTaP/Tdap/Td Vaccine (2 - Td or Tdap) 09/21/2020 09/21/2010 Breast Cancer Screening-Mammogram 02/02/2021 02/03/2020, 02/03/2020, 01/07/2019 Influenza Vaccine (#1) 2023 3, 11/24/2019, 11/22/2018, Additional history exists Pneumococcal vaccine <65 Aged Out No longer eligible based on patient's age to complete this topic Procedures Procedure Name Priority Date/Time Associated Diagnosis Comments THYROGLOBULIN ANTIBODIES Routine 03/31/2024 6:59 AM OYSTERMAN Malignant neoplasm of thyroid gland (HCC) THYROGLOBULIN Routine 03/31/2024 6:59 AM OYSTERMAN Malignant neoplasm of thyroid gland (HCC) T3, FREE Routine 03/31/2024 6:59 AM OYSTERMAN Malignant neoplasm of thyroid gland (HCC) T4, FREE Routine 03/31/2024 6:59 AM OYSTERMAN Malignant neoplasm of thyroid gland (HCC) TSH Routine 03/31/2024 6:59 AM OYSTERMAN Malignant neoplasm of thyroid gland (HCC) from Last 3 Months Results * Thyroglobulin antibodies (03/31/2024 6:59 AM OYSTERMAN) Thyroglobulin ab <1 < or = 1 IU/mL [facility] Blood 03/31/2024 6:59 AM OYSTERMAN 03/31/2024 7:01 AM OYSTERMAN Narrative [facility] - 04/07/2024 12:02 AM OYSTERMAN FASTING:YES FASTING: YES Edenilson Valadez III, MD PhD LAB BLOOD ZULEYMA RODRIGUEZ Final Result [facility] [address] [place] [address] * Thyroglobulin (03/31/2024 6:59 AM OYSTERMAN) Thyroglobulin, lc/ms/ms <0.4 ng/mL [facility], Comment: Reference Range: Athyrotic: <0.4 Reference range applies to differentiated thyroid cancer patients following treatment. The presence of measurable thyroglobulin indicates the presence of thyroglobulin-producing thyroid tissue. Clinical correlation is advised. This Thyroglobulin test was performed by tandem mass spectrometry (LC/MS/MS) and does provide quantitative measurements of thyroglobulin in the presence of anti-Tg antibodies. Values obtained from different assay methods cannot be used interchangeably. Thyroglobulin levels, regardless of value, should not be interpreted as absolute evidence of the presence or absence of disease. This test was developed and its analytical performance characteristics have been determined by [employer]. It has not been cleared or approved by FDA. This assay has been validated pursuant to the CLIA regulations and is used for clinical purposes. Blood 03/31/2024 6:59 AM OYSTERMAN 03/31/2024 7:01 AM OYSTERMAN Narrative [facility] - 04/07/2024 12:02 AM OYSTERMAN FASTING:YES FASTING: YES Edenilson Valadez III, MD PhD LAB BLOOD ZULEYMA RODRIGUEZ Final Result Performing Organization Address City/[facility]/ZIP Co de Phone Number [facility], [address] [place] [address] * T3, free (03/31/2024 6:59 AM OYSTERMAN) Free T3 3.2 2.3 - 4.2 pg/mL [facility] Blood 03/31/2024 6:59 AM OYSTERMAN 03/31/2024 7:01 AM OYSTERMAN Narrative [facility] - 04/07/2024 12:02 AM OYSTERMAN FASTING:YES FASTING: YES Edenilson Valadez III, MD PhD LAB BLOOD ZULEYMA RODRIGUEZ Final Result [facility] [address] [place] [address] * (ABNORMAL) TSH (03/31/2024 6:59 AM OYSTERMAN) TSH 0.36(L) 0.40 - 4.50 mIU/L [facility] Blood 03/31/2024 6:59 AM OYSTERMAN 03/31/2024 7:01 AM OYSTERMAN Narrative [facility] - 04/07/2024 12:02 AM OYSTERMAN FASTING:YES FASTING: YES Edenilson Valadez III, MD PhD LAB BLOOD ORDE RABLES Final Result Performing Organization Address [facility]/ZIP Co de Phone Number [facility] [address] [place] [address] * T4, free (03/31/2024 6:59 AM OYSTERMAN) [facility] Free T4 1.4 0.8 - 1.8 ng/dL [facility] Blood 03/31/2024 6:59 AM OYSTERMAN 03/31/2024 7:01 AM OYSTERMAN Narrative [facility] - 04/07/2024 12:02 AM OYSTERMAN FASTING:YES FASTING: YES Edenilson Valadez III, MD PhD LAB BLOOD ORDE RABJULIANE Final Result Performing Organization Address [facility] de Phone Number [facility] [address] [address] from Last 3 Months Insurance [facility] [employer] [employer] [place] [employer] [place] [facility] [employer] Care Teams Director Of Partner Marketing Relationship Specialty Start Date End Date Sergio Bush PA [address] [place] [address] PCP - General Physician Frameman 09/17/19 Mariusz Carr MD [address] [place] [address] Referring Physician Internal Medicine 02/09/23 Fernando Hernández MD PhD [address] [place] [address] Radiation Oncologist Radiation Oncology 03/20/23 Miguel Larkin MD [address] [facility] OTOLARYNGOLOG[facility], [address] [place] [address] Referring Physician Otolaryngology 03/20/23
--- OUTSIDE RECORDS SUMMARY | 2024-04-14 07:14 | XMS_ITS | Patient Health Record ---
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.213) Active confirmed Problem Pain co-occurrent and due to varicose veins of bilateral legs ([id number] 66507) Varicose veins of bilateral lower extremities with pain (I83.813) Active confirmed Problem Pain in limb (58574692) Pain in leg, unspecified (M79.606) Active confirmed Vital Signs Heart Rate 83 /min 08/16/2023 Respiratory Rate 16 /min 07/12/2023 Blood pressure diastolic 72 mm Hg 08/16/2023 Height 64 in 08/16/2023 Blood pressure systolic 132 mm Hg 08/16/2023 Weight 194.2 lbs 08/16/2023 BMI 33.33 kg/m2 08/16/2023 Encounters Encounter Location Date Provider Diagnosis [place] [id number] [id number] 07/19/2023 VIRGINIA MCKAY [place] [address] [id number] 08/30/2023 V[place]IA WOODY [place] [address] [id number] 09/17/2023 [place] WOODY [address] [id number] 07/12/2023 VIRGINIA MCKAY Pain in leg, unspecified M79.606 ; Varicose veins of bilateral lower extremities with pain I83.813 ; Phlebitis and thrombophlebitis of iliac vein, bilateral I80.213 ; Other obesity due to excess calories E66.09 and Family history of ischemic heart disease and other diseases of the circulatory system Z82.[address] [address] 08/10/2023 VIRGINIA WOODY Phlebitis and thrombophlebitis of iliac vein, bilateral I80.213 ; Pain in leg, unspecified M79.606 and Varicose veins of bilateral lower extremities with pain I83.813 [facility] [address] [place] [address] 08/16/2023 VIRGINIA WOODY Phlebitis and thrombophlebitis of iliac vein, bilateral I80.213 ; Pain in leg, unspecified M79.606 and Varicose veins of bilateral lower extremities with pain I83.813 [facility] [address] [place] [address] 07/12/2023 VIRGINIA MCKAY [facility] [address] [place] [address] 07/19/2023 VIRGINIA MCKAY [facility] [address] [place] [address] 08/13/2023 VIRGINIA MCKAY [facility] [address] [place] [address] 08/16/2023 VIRGINIA MCKAY [facility] [address] [place] [address] 08/30/2023 VIRGINIA MCKAY [facility] [address] [facility] [address] [place] [address] 08/30/2023 VIRGINIA MCKAY [facility] [address] [facility] [address] [place] [address] 09/17/2023 VIRGINIA MCKAY Assessments Encounter Date Diagnosis [...] Insured Coverage Start Date Coverage End Date [facility] [address] [place] [address] [id number] Yoselin Taylor Self - patient is the insured Medical (General) History Medical History History ICD Code Hypothyroidism Cancer sleep apnea Surgical History Surgery Date(Month/Year) throidectomy elbow Tubal
--- OUTSIDE RECORDS SUMMARY | 2024-04-14 07:14 | XMS_ITS | Referral Summary ---
Author Organization [facility] HealthCare Care Team Providers Care Hand Shaper Name Role Phone Sergio Bush Primary Care Provider Mariusz Carr MD Unavailable [phone] Fernando Hernández MD PhD Unavailable [phone] Miguel Larkin MD Unavailable [phone] Encounters Date Type Department Care Team Description 04/02/2024 Telephone [facility] Radiation Oncology [facility] [place] [address] Alexander Rao, EDWIGE 04/01/2024 Telephone [facility] Radiation Oncology [facility] [place] [address] Fransisca Craven RN 03/05/2024 Orders Only [facility] Radiation Oncology [facility] [place] [address] Edenilson Valadez III, MD PhD Malignant neoplasm of thyroid gland (HCC) (Primary Dx) 02/01/2024 Telephone [facility] Radiation Oncology [facility] [place] [address] Zulema Mayorga MA Scheduling Appointments from Last [...] 04/12/2020 Assessment & Plan (04/12/2020 9:38 AM AQUATICS LIFEGUARD): Due to the patient stating that her restless legs are still bothering her at night, I have increased her Requip to 1 mg p.o. at bedtime. The patient will also continue with iron 325 mg daily as tolerated. IRISH (obstructive sleep apnea) 04/12/2020 Assessment & Plan (04/12/2020 9:37 AM AQUATICS LIFEGUARD): The patient will continue with CPAP therapy at 9 cm water pressure to treat obstructive sleep apnea. Patient denied need for supplies. The [employer] company is [employer]. The patient is benefitting from CPAP therapy. Pain of hand 12/11/2014 Immunizations Immunization Administration Dates Next Due Flucelvax [...] on file Legal Sex Female 10:11 PM AQUATICS LIFEGUARD Gender Identity Not on file Sexual Orientation Not on file Last Filed Vital Signs Vital Sign Reading Time Taken Comments Blood Pressure 124/82 04/12/2020 9:18 AM AQUATICS LIFEGUARD Pulse 77 04/12/2020 9:18 AM AQUATICS LIFEGUARD Temperature 36.7 C (98 F) 04/12/2020 9:18 AM AQUATICS LIFEGUARD Respiratory Rate - - Oxygen Saturation 99% 04/12/2020 9:18 AM AQUATICS LIFEGUARD Inhaled Oxygen Concentration - - Weight 92.5 kg (204 lb) 09/25/2023 10:58 AM CDT Height 162.6 cm (5' 4 ) 09/25/2023 10:58 AM CDT Body Mass Index 35.02 09/25/2023 10:58 AM CDT Plan of Treatment Not on file Procedures Procedure Name Priority Date/Time Associated Diagnosis Comments THYROGLOBULIN ANTIBODIES Routine 03/31/2024 6:59 AM AQUATICS LIFEGUARD Malignant neoplasm of thyroid gland (HCC) THYROGLOBULIN Routine 03/31/2024 6:59 AM AQUATICS LIFEGUARD Malignant neoplasm of thyroid gland (HCC) T3, FREE Routine 03/31/2024 6:59 AM AQUATICS LIFEGUARD Malignant neoplasm of thyroid gland (HCC) T4, FREE Routine 03/31/2024 6:59 AM AQUATICS LIFEGUARD Malignant neoplasm of thyroid gland (HCC) TSH Routine 03/31/2024 6:59 AM AQUATICS LIFEGUARD Malignant neoplasm of thyroid gland (HCC) from Last 3 Months Results * Thyroglobulin antibodies (03/31/2024 6:59 AM AQUATICS LIFEGUARD) Thyroglobulin ab <1 < or = 1 IU/mL [facility] Blood 03/31/2024 6:59 AM AQUATICS LIFEGUARD 03/31/2024 7:01 AM AQUATICS LIFEGUARD Narrative [facility] - 04/07/2024 12:02 AM AQUATICS LIFEGUARD FASTING:YES FASTING: YES Edenilson Valadez III, MD PhD LAB BLOOD ZULEYMA RODRIGUEZ Final Result Performing Organization Address City/[facility]/ZIP Co de Phone Number [facility] [address] [place] [address] * Thyroglobulin (03/31/2024 6:59 AM AQUATICS LIFEGUARD) Thyroglobulin, lc/ms/ms <0.4 ng/mL [facility], Comment: Reference Range: Athyrotic: <0.4 Reference range [...] analytical performance characteristics have been determined by [employer]. It has not been cleared or approved by FDA. This assay has been validated pursuant to the CLIA regulations and is used for clinical purposes. Blood 03/31/2024 6:59 AM AQUATICS LIFEGUARD 03/31/2024 7:01 AM AQUATICS LIFEGUARD Narrative [facility] - 04/07/2024 12:02 AM AQUATICS LIFEGUARD FASTING:YES FASTING: YES Edenilson Valadez III, MD PhD LAB BLOOD ZULEYMA RODRIGUEZ Final Result [facility], [address] [place] [address] * T3, free (03/31/2024 6:59 AM AQUATICS LIFEGUARD) Free T3 3.2 2.3 - 4.2 pg/mL [facility] Blood 03/31/2024 6:59 AM AQUATICS LIFEGUARD 03/31/2024 7:01 AM AQUATICS LIFEGUARD Narrative [facility] - 04/07/2024 12:02 AM AQUATICS LIFEGUARD FASTING:YES FASTING: YES Edenilson Valadez III, MD PhD LAB BLOOD ORDMagdaleno RODRIGUEZ Final Result [facility] [address] [facility] [place] [address] * (ABNORMAL) TSH (03/31/2024 6:59 AM AQUATICS LIFEGUARD) [facility] TSH 0.36(L) 0.40 - 4.50 mIU/L [facility] Blood 03/31/2024 6:59 AM AQUATICS LIFEGUARD 03/31/2024 7:01 AM AQUATICS LIFEGUARD Narrative [facility] - 04/07/2024 12:02 AM AQUATICS LIFEGUARD FASTING:YES FASTING: YES Edenilson Valadez III, MD PhD LAB BLOOD ZULEYMA RODRIGUEZ Final Result Performing Organization Address [facility] Co de Phone Number [facility] [address] [place] [address] * T4, free (03/31/2024 6:59 AM AQUATICS LIFEGUARD) Free T4 1.4 0.8 - 1.8 ng/dL [facility] Blood 03/31/2024 6:59 AM AQUATICS LIFEGUARD 03/31/2024 7:01 AM AQUATICS LIFEGUARD Narrative [facility] - 04/07/2024 12:02 AM AQUATICS LIFEGUARD FASTING:YES FASTING: YES Edenilson Valadez III, MD PhD LAB BLOOD ORDMagdaleno RODRIGUEZ Final Result Performing Organization Address City/[facility]/ZIP Co de Phone Number [facility] [address] [facility] [address] [place] [address] from Last 3 Months Insurance [facility] CHOICE PLUS [facility] HMO/PPO Address: [facility] [address] [place] [address] [place] [facility] CHOICE PLUS [facility] HMO/PPO Address: [address] [address] [place] [address] Care Teams Hand Shaper Relationship Specialty Start Date End Date Sergio Bush PA [address] [address] PCP - General Physician Furniture Finisher Apprentice 09/17/19 Mariusz Carr MD [address] [address] Referring Physician Internal Medicine 02/09/23 Fernando Hernández MD PhD [address] [facility] [address] [place] [address] Radiation Oncologist Radiation Oncology 03/20/23 Miguel Larkin MD [address] [facility] OTOLARYNGOLOGY, [address] [place] [address] Referring Physician Otolaryngology 03/20/23
--- OUTSIDE RECORDS SUMMARY | 2024-04-14 07:14 | XMS_ITS | Encounter Summary ---
Author Organization [facility] Address [address] [place] [address] Care Team Providers Care Gold Nib Grinder Name Role Phone Dwayne Chandler DO Primary Care Provider [phone] Encounter Details Date Type Department Care Team (Late Contact Info) Description 03/20/2024 Results Follow-Up [facility] - [address] [place] [address] Anastasiya Ritter, [place] [address] [id number] ESTRADIOL, TESTOSTERONE FREE AND TOTAL Social History Tobacco Use Types Packs/Day Years Used Date Smoking Tobacco: Never Comments No Sex and Gender Information Value Date Recorded Sex Assigned at Not on file Legal Sex Female 11:11 PM CDT Gender Identity Not on file Sexual Orientation Not on file documented as of this encounter Plan of Treatment Upcoming Encounters Date Type Department Care Team (Late Contact Info) Description 03/26/2025 9:00 AM GEOSCIENCES FACULTY MEMBER Office Visit [facility] - [address] [place] [address] [place] [address] [facility] [address] [place] [address] documented as of this encounter Visit Diagnoses Not on filedocumented in this encounter Care Teams Gold Nib Grinder Relationship Specialty Start Date End Date Dwayne Chandler DO [address] [facility] [address] [place] [address] PCP - General Internal Medicine 01/27/20 documented as of this encounter
--- OUTSIDE RECORDS SUMMARY | 2024-04-14 07:14 | XMS_ITS ---
Author Organization [facility] HealthCare Care Team Providers Care Tmh Teacher Name Role Phone Sergio Bush Primary Care Provider Mariusz Carr MD Unavailable [phone] Fernando Hernández MD PhD Unavailable [phone] Miguel Larkin MD Unavailable Active Problems Problem Noted Date Diagnosed Date Thyroid cancer 10/13/2022 Cancer Staging:Pathologic stage from 09/12/2022:Stage I(pT1a, pNX, cM0, Age at diagnosis: >= 55 years) - Signed by Jennie Zuleta PA on 03/20/2023 RLS (restless legs syndrome) 04/12/2020 Assessment & Plan (04/12/2020 9:38 AM CASHIER HOST/HOSTESS): Due to the patient stating that her restless legs are still bothering her at night, I have increased her Requip to 1 mg p.o. at bedtime. The patient will also continue with iron 325 mg daily as tolerated. IRISH (obstructive sleep apnea) 04/12/2020 Assessment & Plan (04/12/2020 9:37 AM CASHIER HOST/HOSTESS): The patient will continue with CPAP therapy at 9 cm water pressure to treat obstructive sleep apnea. Patient denied need for supplies. The [employer] company is [employer]. The patient is benefitting from CPAP therapy. Pain of hand 12/11/2014 Current Treatment and Therapy Plans No current plan information found. Past Treatment and Therapy Plans No past plan information found. Radiation Treatments * Course C1 Thyroid 03/23/2023 - 03/23/2023 Treatment Period Energy Fraction Dose Fractions Total Dose Plans Planned Thyroid 1 03/23/2023 - 03/23/2023 30 Reference Points Delivered Thyroid 1 03/23/2023 - 03/23/2023 30
--- OUTSIDE RECORDS SUMMARY | 2024-04-14 07:14 | XMS_ITS | Clinical Summary ---
Author Organization [facility] [employer] Address [address] [place] [address] Care Team Providers Care Logistics Tech Name Role Phone Sergio Bush PA-C Primary Care Provide r Source Comments [facility] [employer],non-owned Affiliates and Associated Physician Practices is amultiple site organization consisting of ambulatory clinics and hospital sitesin [place], [place], [place] and [place]. This disclosure is being madepursuant to the Care Everywhere program and may not contain all information available regarding this patient. Last updated 17.[facility] [employer] Allergies Active Allergy Reactions Criticality Noted Date [...] 36.7 C (98.1 F) 01/02/2023 7:06 AM GRID OPERATOR Respiratory Rate 18 01/02/2023 7:06 AM GRID OPERATOR Oxygen Saturation 98% 01/02/2023 7:06 AM GRID OPERATOR Inhaled Oxygen Concentration - - Weight 88.5 kg (195 lb) 10/19/2023 9:44 AM CDT Height 162.6 cm (5' 4 ) 10/19/2023 9:44 AM CDT Body Mass Index 33.47 10/19/2023 9:44 AM CDT Plan of Treatment Upcoming Encounters Date Type Department Care Team (Late st Contact Info) Description 10/24/2024 9:45 AM CDT Office Visit [facility] - ENT [address], [place] [address] Miguel Larkin MD [facility] [place] [address] Health Maintenance Due Date Last [...] PANEL (CALCIUM TOTAL) Routine 01/02/2023 1:23 AM [facility] Thyroid cancer (HCC) from Last 3 Months or Most Recently Relevant to Health Maintenance Results * (ABNORMAL) BASIC METABOLIC PANEL (CALCIUM TOTAL) (01/02/2023 1:23 AM [facility]) BUN 9 7 - 26 mg/dL 01/02/2023 2:04 AM [facility] Creatinine 0.69 0.56 - 0.96 mg/dL 01/02/2023 2:04 AM [facility] Sodium 137 136 - 145 mmol/L 01/02/2023 2:04 AM [facility] Potassium 3.7 3.5 - 4.5 mmol/L 01/02/2023 2:04 AM [facility] Chloride 105 98 - 107 mmol/L 01/02/2023 2:04 AM [facility] CO2 24 22 - 29 mmol/L 01/02/2023 2:04 AM [facility] Glucose 116(H) 70 - 115 mg/dL 01/02/2023 2:04 AM [facility] Calcium 8.7 8.4 - 10.2 mg/dL 01/02/2023 2:04 AM [facility] Anion Gap 8 6 - 16 01/02/2023 2:04 AM [facility] BUN/Creatinine Ratio 13 7 - 23 01/02/2023 2:04 AM [facility] Osmolality Calculated 284 275 - 295 mOsm/kg 01/02/2023 2:04 AM [facility] eGFR by CKD-EPI >90 >=90 mL/min/1.7 3 m2 01/02/2023 2:04 AM [facility] Blood BLOOD SPECIMEN / Unknown Lab Venipuncture / Unknown 01/02/2023 1:23 AM GRID OPERATOR 01/02/2023 1:34 AM GRID OPERATOR Miguel Larkin MD LAB - CHEMISTRY ZULEYMA Delacruz Organization Address City/State/ZIP Co de Phone Number [facility] [address] [place] [address], [facility] [phone] from Last 3 Months or Most Recently Relevant to Health Maintenance Advance Directives * Full Code (Latest Code Status on File) Date Activated Date Inactivated Comments 01/01/2023 11:06 AM 01/02/2023 10:25 AM * Full Code Date Activated Date Inactivated Comments 09/12/2022 10:34 AM 09/13/2022 11:54 AM Care Teams Logistics Tech Relationship Specialty Start Date End Date Sergio Bush PA-C [address] [place] [address] PCP - General Physician S[employer] Edge Inker Machine 08/30/22
--- OUTSIDE RECORDS SUMMARY | 2024-04-14 07:15 | XMS_ITS | Referral Summary ---
Author Organization [facility] Address [address] [place] [address] Care Team Providers Care Journeyman Molder Name Role Phone Sergio Bush PA-C Primary Care Provide r Source Comments [facility],non-owned Affiliates and Associated Physician Practices is amultiple site organization consisting of ambulatory clinics and hospital sitesin [place], [place], [place] and [place]. This disclosure is being madepursuant to the Care Everywhere program and may not contain all information available regarding this patient. Last updated 17.[facility] [employer] Allergies Active Allergy Reactions Criticality Noted Date [...] 36.7 C (98.1 F) 01/02/2023 7:06 AM FORM LAYER Respiratory Rate 18 01/02/2023 7:06 AM FOR[facility]ER Oxygen Saturation 98% 01/02/2023 7:06 AM FORM LAYER Inhaled Oxygen Concentration - - Weight 88.5 [...] Office Visit [facility] - ENT [facility] [place] [address] Miguel Larkin MD [address] [place] [address] DE[place] [address] Procedures Procedure Name Priority Date/Time Associated Diagnosis Comments BASIC METABOLIC PANEL (CALCIUM TOTAL) Routine 01/02/2023 1:23 AM [facility] Thyroid cancer (HCC) from Last 3 Months or Most Recently Relevant to Health Maintenance Results * (ABNORMAL) BASIC METABOLIC PANEL (CALCIUM TOTAL) (01/02/2023 1:23 AM [facility]) BUN 9 7 - 26 mg/dL 01/02/2023 2:04 AM [facility] Creatinine 0.69 0.56 - 0.96 mg/dL 01/02/2023 2:04 AM [facility] Sodium 137 136 - 145 mmol/L 01/02/2023 2:04 AM [facility] Potassium 3.7 3.5 - 4.5 mmol/L 01/02/2023 2:04 AM [facility] Chloride 105 98 - 107 mmol/L 01/02/2023 2:04 AM [facility] CO2 24 22 - 29 mmol/L 01/02/2023 2:04 AM [facility] Glucose 116(H) 70 - 115 mg/dL 01/02/2023 2:04 AM [facility] Calcium 8.7 8.4 - 10.2 mg/dL 01/02/2023 2:04 AM [facility] Anion Gap 8 6 - 16 01/02/2023 2:04 AM [facility] BUN/Creatinine Ratio 13 7 - 23 01/02/2023 2:04 AM [facility] Osmolality Calculated 284 275 - 295 mOsm/kg 01/02/2023 2:04 AM [facility] eGFR by CKD-EPI >90 >=90 mL/min/1.7 3 m2 01/02/2023 2:04 AM [facility] Blood BLOOD SPECIMEN / Unknown Lab Venipuncture / Unknown 01/02/2023 1:23 AM [facility] 01/02/2023 1:34 AM [facility] Miguel Larkin MD LAB - CHEMISTRY ZULEYMA RODRIGUEZ [facility] Organization Address City/State/ZIP Co de Phone Number [facility] [address] [place] [address], [facility] [phone] from Last 3 Months or Most Recently Relevant to Health Maintenance Advance Directives * Full Code (Latest Code Status on File) Date Activated Date Inactivated Comments 01/01/2023 11:06 AM 01/02/2023 10:25 AM * Full Code Date Activated Date Inactivated Comments 09/12/2022 10:34 AM 09/13/2022 11:54 AM Care Teams Journeyman Molder Relationship Specialty Start Date End Date Sergio Bush PA-C [address] [place] [id number] PCP - General Physician Change Control Specialist 08/30/22
--- OUTSIDE RECORDS SUMMARY | 2024-04-14 07:15 | XMS_ITS | Patient Health Summary ---
Author Organization [facility] Address [address] [place] [address] Care Team Providers Care Geochemist Name Role Phone Sergio Bush PA-C Primary Care Provide r Note from [facility],non-owned Affiliates and Associated Physician Practices is amultiple site organization consisting of ambulatory clinics and hospital sitesin [place], [place], [place] and [place]. This disclosure is being madepursuant to the Care Everywhere program and may not contain all information available regarding this patient. Last updated 17.[facility] Allergies * Hydrocodone-Acetaminophen(Nausea and/or Vomiting,Vomiting) -Low [...] 36.7 C (98.1 F) 01/02/2023 7:06 AM [facility] Respiratory Rate 18 01/02/2023 7:06 AM [facility] Oxygen Saturation 98% 01/02/2023 7:06 AM [facility] Inhaled Oxygen Concentration - - Weight 88.5 [...] TISSUE(Performed 01/01/2023) Performed for Thyroid nodule * NC THYROIDECTOMY,MALIG,LTD NECK SURG(Performed 01/01/2023) Performed for Thyroid nodule * ENDOTRACHEAL TUBE NOTE(Performed 01/01/2023) * TYPE + SCREEN PANEL(Performed 01/01/2023) Performed for Pre-op evaluation * PT-INR [facility](Performed 11/17/2022) * COMPREHENSIVE METABOLIC PANEL(Performed 11/17/2022) * CBC W AUTO DIFFERENTIAL(Performed 11/17/2022) * NC LARYNGOSCOPY,FLEX FIBER,DIAGNOSTIC(Performed 11/17/2022) Performed for Vocal cord paralysis * NC LARYNGOSCOPY,FLEX FIBER,DIAGNOSTIC(Performed 10/13/2022) Performed for Thyroid nodule, Change in voice, Dysphonia * NC LARYNGOSCOPY,FLEX FIBER,DIAGNOSTIC(Performed 09/13/2022) Performed for Dysphonia * [...] TOTAL)(Performed 08/30/2022) Performed for Pre-op examination * NC LARYNGOSCOPY,FLEX FIBER,DIAGNOSTIC(Performed 08/11/2022) Performed for Thyroid nodule, Change in voice Results * (ABNORMAL) CBC W AUTO DIFFERENTIAL (01/02/2023 1:23 AM [facility]) Only the most recent of2 resultswithin the time period is included. WBC 10.5 3.5 - 10.5 10 3/uL 01/02/2023 1:51 AM [facility] RBC 3.80 3.80 - 5.20 10 6/uL 01/02/2023 1:51 AM [facility] Hemoglobin 12.4 12.0 - 15.6 g/dL 01/02/2023 1:51 AM [facility] Hematocrit 35.7 35.0 - 45.0 % 01/02/2023 1:51 AM [facility] MCV 93.9 80.7 - 98.3 fL 01/02/2023 1:51 AM [facility] MCH 32.6 26.7 - 34.0 pg 01/02/2023 1:51 AM [facility] MCHC 34.7 30.8 - 35.9 g/dL 01/02/2023 1:51 AM [facility] RDW-SD 42.5 36.0 - 50.0 fL 01/02/2023 1:51 AM [facility] RDW-CV 12.2 11.2 - 14.8 % 01/02/2023 1:51 AM [facility] Platelet Count 270 150 - 400 10 3/uL 01/02/2023 1:51 AM [facility] MPV 10.0 9.4 - 12.9 fL 01/02/2023 1:51 AM [facility] nRBC Absolute 0.00 0 10 3/uL 01/02/2023 1:51 AM [facility] nRBC Auto 0.0 0 /100 WBC 01/02/2023 1:51 AM [facility] Neutrophils % 68.3 35.0 - 70.0 % 01/02/2023 1:51 AM [facility] Lymphocytes % 20.1 20.0 - 43.0 % 01/02/2023 1:51 AM [facility] Monocytes % 10.9 5.0 - 13.0 % 01/02/2023 1:51 AM [facility] Eosinophils % 0.1 0.0 - 6.0 % 01/02/2023 1:51 AM [facility] Basophil % 0.2 0.0 - 2.0 % 01/02/2023 1:51 AM [facility] Neutrophils Absolute 7.18(H) 1.60 - 7.00 10 3/uL 01/02/2023 1:51 AM [facility] Lymphocyte Absolute 2.11 1.10 - 3.90 10 3/uL 01/02/2023 1:51 AM [facility] Monocytes Absolute 1.14(H) 0.26 - 1.07 10 3/uL 01/02/2023 1:51 AM [facility] Eosinophils Absolute 0.01 0.00 - 0.47 10 3/uL 01/02/2023 1:51 AM [facility] Basophils Absolute 0.02 0.00 - 0.08 10 3/uL 01/02/2023 1:51 AM [facility] Immature Granulocytes % 0.4 0.0 - 1.0 % 01/02/2023 1:51 AM [facility] Immature Granulocytes Absolute 0.04 01/02/2023 1:51 AM [facility] Blood BLOOD SPECIMEN / Unknown Lab Venipuncture / Unknown 01/02/2023 1:23 AM [facility] 01/02/2023 1:34 AM [facility] Miguel Larkin MD LAB - HEMATOLOGY ORD ERABLES [facility] [address] [place] [address], [facility] [phone] * (ABNORMAL) BASIC METABOLIC PANEL (CALCIUM TOTAL) (01/02/2023 1:23 AM [facility]) Only the most recent of3 resultswithin the time period is included. BUN 9 7 - 26 mg/dL 01/02/2023 2:04 AM [facility] Creatinine 0.69 0.56 - 0.96 mg/dL 01/02/2023 2:04 AM [facility] Sodium 137 136 - 145 mmol/L 01/02/2023 2:04 AM [facility] Potassium 3.7 3.5 - 4.5 mmol/L 01/02/2023 2:04 AM [facility] Chloride 105 98 - 107 mmol/L 01/02/2023 2:04 AM [facility] CO2 24 22 - 29 mmol/L 01/02/2023 2:04 AM [facility] Glucose 116(H) 70 - 115 mg/dL 01/02/2023 2:04 AM [facility] Calcium 8.7 8.4 - 10.2 mg/dL 01/02/2023 2:04 AM [facility] Anion Gap 8 6 - 16 01/02/2023 2:04 AM [facility] BUN/Creatinine Ratio 13 7 - 23 01/02/2023 2:04 AM [facility] Osmolality Calculated 284 275 - 295 mOsm/kg 01/02/2023 2:04 AM [facility] eGFR by CKD-EPI >90 >=90 mL/min/1.7 3 m2 01/02/2023 2:04 AM [facility] Blood BLOOD SPECIMEN / Unknown Lab Venipuncture / Unknown 01/02/2023 1:23 AM [facility] 01/02/2023 1:34 AM [facility] Miguel Larkin MD LAB - CHEMISTRY ZULEYMA RODRIGUE[facility] Organization Address City/State/ZIP Co de Phone Number [facility] [address] [place] [address], [facility] [phone] * PHOSPHORUS BLOOD (01/02/2023 1:23 AM [facility]) Phosphorus 3.4 2.9 - 5.1 mg/dL 01/02/2023 2:04 AM [facility] Blood BLOOD SPECIMEN / Unknown Lab Venipuncture / Unknown 01/02/2023 1:23 AM [facility] 01/02/2023 1:34 AM [facility] Miguel Larkin MD LAB - CHEMISTRY ZULEYMA RODRIGUEZ Performing Organization Address City/[facility]/ZIP Co de Phone Number [address] [address], [facility] [phone] * MAGNESIUM BLOOD (01/02/2023 1:23 AM [facility]) Only the most recent of2 resultswithin the time period is included. Magnesium 1.8 1.6 - 2.6 mg/dL 01/02/2023 2:04 AM [facility] Blood BLOOD SPECIMEN / Unknown Lab Venipuncture / Unknown 01/02/2023 1:23 AM [facility] 01/02/2023 1:34 AM [facility] Miguel Larkin MD LAB - CHEMISTRY ZULEYMA RODRIGUEZ Performing Organization Address [facility] Co de Phone Number [address] [address], [facility] [phone] * PTH INTACT W/O CALCIUM (01/01/2023 9:45 AM [facility]) PTH Intact 23.8 8.0 - 77.0 pg/mL 01/01/2023 10:26 AM [facility] Blood BLOOD SPECIMEN / Unknown Venipuncture / Unknown 01/01/2023 9:45 AM [facility] 01/01/2023 9:51 AM [facility] Miguel Larkin MD LAB - CHEMISTRY ZULEYMA RODRIGUEZ [address] [address], [facility] [phone] * ALBUMIN BLOOD (01/01/2023 9:45 AM [facility]) Albumin 3.6 3.4 - 5.0 g/dL 01/01/2023 10:21 AM [facility] Blood BLOOD SPECIMEN / Unknown Venipuncture / Unknown 01/01/2023 9:45 AM [facility] 01/01/2023 9:51 AM [facility] Miguel Larkin MD LAB - CHEMISTRY ZULEYMA RODRIGUE[facility] Organization Address City/State/ZIP Co de Phone Number [facility] [address] [place] [address], [facility] [phone] * PATHOLOGY TISSUE (01/01/2023 8:41 AM [facility]) Only the most recent of2 resultswithin the time period is included. 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 01/09/2023 3:12 PM [facility] Clinical History The patient is a 57-year-old woman with history of right thyroid nodule who previously underwent thyroid lobectomy (September 2022) showing papillary thyroid carcinoma with positive margins (right lobe anterior and posterior) and lymphatic invasion. Operative procedure: Left completion thyroid lobectomy with superior parathyroid identified and preserved. Inferior parathyroid not identified. 01/09/2023 3:12 PM [facility] Gross Description The requisition [...] bisected (0.8 cm nodule)./AJ 01/09/2023 3:12 PM [facility] Pathologist Location at [facility] 01/09/2023 3:12 PM [facility] Disclaimer The performance characteristics of all immunohistochemical and indirect immunofluorescence stains (if any) cited in this report were determined by the Histopathology Laboratory of [facility]. Some of these tests were developed by [...] the attending (teaching) pathologist. 01/09/2023 3:12 PM [facility] Embedded Images 01/09/2023 3:12 PM [facility] Biopsy, Excision (Thyroid, Left Lobe) 01/01/2023 8:41 AM [facility] 01/01/2023 11:09 AM [facility] Comment:Pre-op diagnosis: Thyroid nodule Miguel Larkin MD LAB - PATHOLOGY/CYTO LOGY ORDERABLES [facility] [address] [phone] * ETT LINE PERFORMABLE (01/01/2023 7:48 AM [facility]) Narrative Jamal Recio Anes Asst - 01/01/2023 7:48 AM [facility] Jamal Recio Anes Assserena 01/01/2023 7:49 AM Endotracheal Tube Placement: Patient Location: OR. Intubation Event Date/Time: 01/01/2023 7:37 AM Procedure: intubation ([id number]). Procedure Section: Sedation: under general anesthesia. Indications [...] TYPE + SCREEN PANEL (01/01/2023 6:25 AM [facility]) Only the most recent of3 resultswithin the time period is included. Antibody Screen NEG 7:31 AM [facility] ABO Rh A NEG 01/01/2023 7:31 AM [facility] Blood Bank BLOOD SPECIMEN / Unknown Venipuncture / Unknown 01/01/2023 6:25 AM [facility] 01/01/2023 6:29 AM [facility] [place] HELP DESK TEAM LEADER-TRANSITION COACH LAB - BLO OD BANK ORDERABLES [facility] [address] [place] [address], [facility] [phone] * PT-INR [facility] (11/17/2022 12:06 PM CDT) PT 13.1 12.1 - 14.8 Seconds 11/17/2022 12:54 PM CDT [facility] INR 1.0 See Comment 11/17/2022 12:54 PM [facility] Comment:The suggested therap eutic range for standard coumadin (warfarin) therapy is an INR of 2.0-3.0. For high-risk patients (Mechanical Mitral Valve Prosthesis, etc.), the suggested prophylactic therapeutic range is an INR of 2.5-3.5. Blood BLOOD SPECIMEN / Unknown Lab Venipuncture / Unknown 11/17/2022 12:06 PM CDT 11/17/2022 12:07 PM CDT Gregory Sarabia MD LAB - COAGULATION ORDERABLES [facility] [address] [place] [address] [phone] * (ABNORMAL) COMPREHENSIVE METABOLIC PANEL (11/17/2022 12:06 PM CDT) BUN 10 7 - 26 mg/dL 11/17/2022 12:37 PM [facility] Creatinine 0.75 0.56 - 0.96 mg/dL 11/17/2022 12:37 PM [facility] Sodium 144 136 - 145 mmol/L 11/17/2022 12:37 PM [facility] Potassium 4.0 3.5 - 4.5 mmol/L 11/17/2022 12:37 PM [facility] Chloride 107 98 - 107 mmol/L 11/17/2022 12:37 PM [facility] CO2 27 22 - 29 mmol/L 11/17/2022 12:37 PM [facility] Glucose 81 70 - 115 mg/dL 11/17/2022 12:37 PM [facility] Calcium 9.8 8.4 - 10.2 mg/dL 11/17/2022 12:37 PM [facility] Protein Total 7.9 6.0 - 8.3 g/dL 11/17/2022 12:37 PM [facility] Albumin 4.2 3.4 - 5.0 g/dL 11/17/2022 12:37 PM [facility] Bilirubin Total 0.4 0.2 - 1.2 mg/dL 11/17/2022 12:37 PM [facility] Alkaline Phosphatase 62 40 - 150 U/L 11/17/2022 12:37 PM [facility] ALT 24 5 - 55 U/L 11/17/2022 12:37 PM [facility] AST 25 5 - 34 U/L 11/17/2022 12:37 PM [facility] Anion Gap 10 6 - 16 11/17/2022 12:37 PM [facility] BUN/Creatinine Ratio 13 7 - 23 11/17/2022 12:37 PM [facility] Osmolality Calculated 296(H) 275 - 295 mOsm/kg 11/17/2022 12:37 PM [facility] Albumin/Globulin Ratio 1.1 1.1 - 2.3 11/17/2022 12:37 PM [facility] eGFR by CKD-EPI >90 >=90 mL/min/1.7 3 m2 11/17/2022 12:37 PM [facility] Blood BLOOD SPECIMEN / Unknown Lab Venipuncture / Unknown 11/17/2022 12:06 PM CDT 11/17/2022 12:08 PM CDT Gregory Sarabia MD LAB - CHEMISTRY OR DERABLES Performing Organization Address City/State/[facility] Co de Phone Number [facility] [address] [place] [address], [facility] [phone] * NC LARYNGOSCOPY,FLEX FIBER,DIAGNOSTIC (11/17/2022 11:26 AM CDT) Narrative [...] Larkin MD PROCEDURE/MINOR SURG ICAL ORDERABLES * NC LARYNGOSCOPY,FLEX FIBER,DIAGNOSTIC (10/13/2022 1:42 PM CDT) Narrative [...] Larkin MD PROCEDURE/MINOR SURG ICAL ORDERABLES * NC LARYNGOSCOPY,FLEX FIBER,DIAGNOSTIC (09/13/2022 5:03 PM CDT) Narrative [...] Placement: Patient Location: OR Procedure: IV start ([id number]). Procedure Section: Skin Prep: alcohol. Orientation: left [...] Burden APRN-CRNA - 09/12/2022 8:07 AM CDT Orly Bucio APRN-CRNA 09/12/2022 8:08 AM Endotracheal Tube Placement: Patient Location: OR. Intubation Event Date/Time: 09/12/2022 7:38 AM Procedure: intubation ([id number]). Procedure Section: Sedation: under general anesthesia. Indications [...] AM. Staff Section Anesthesia Provider: Orly Bucio, HELP DESK TEAM LEADER-LEATHER FITTER, Performed the procedure Provider #1: Israel Lopez MD. Israel Lopez MD GENERAL ANESTHESIA O RDERABLES * HCG URINE QUALITATIVE - POCT (IP) INTERFACED (09/12/2022 5:49 AM CDT) HCG Qual Urine Negative Negative 09/12/2022 5:56 AM CDT [facility] Urine URINE / Unknown 09/12/2022 5 :49 AM CDT 09/12/2022 5:56 AM CDT Miguel Larkin MD LAB - POINT OF CARE ORDERABLES Performing Organization Address City/[facility]/ZIP Co de Phone Number [address] [address], [facility] [phone] * HCG URINE QUAL POCT NOTIFICATION (09/12/2022 5:40 AM CDT) Comment Notification Label Only - See Separate Report 09/12/2022 7:00 AM CDT [facility] Urine URINE / Unknown 09/12/2022 5 :40 AM CDT 09/12/2022 5:40 AM CDT Miguel Larkin MD LAB - URINALYSIS ORD ERABLES Performing Organization Address City/[facility]/ZIP Co de Phone Number [address] [address], [place] [phone] * CBC W/O DIFFERENTIAL (08/30/2022 2:52 PM CDT) WBC 6.6 3.5 - 10.5 10 3/uL 08/30/2022 3:16 PM CDT [facility] RBC 4.46 3.80 - 5.20 10 6/uL 08/30/2022 3:16 PM CDT [facility] Hemoglobin 14.4 12.0 - 15.6 g/dL 08/30/2022 3:16 PM [facility] Hematocrit 43.4 35.0 - 45.0 % 08/30/2022 3:16 PM [facility] MCV 97.3 80.7 - 98.3 fL 08/30/2022 3:16 PM [facility] MCH 32.3 26.7 - 34.0 pg 08/30/2022 3:16 PM [facility] MCHC 33.2 30.8 - 35.9 g/dL 08/30/2022 3:16 PM [facility] RDW-SD 44.9 36.0 - 50.0 fL 08/30/2022 3:16 PM [facility] RDW-CV 12.5 11.2 - 14.8 % 08/30/2022 3:16 PM [facility] Platelet Count 289 150 - 400 10 3/uL 08/30/2022 3:16 PM [facility] MPV 10.2 9.4 - 12.9 fL 08/30/2022 3:16 PM [facility] nRBC Absolute 0.00 0 10 3/uL 08/30/2022 3:16 PM [facility] nRBC Auto 0.0 0 /100 WBC 08/30/2022 3:16 PM [facility] Blood BLOOD SPECIMEN / Unknown Lab Venipuncture / Unknown 08/30/2022 2:52 PM CDT 08/30/2022 3:05 PM CDT Ashli Smith HELP DESK TEAM LEADER-ASSISTANT WOMEN'S BASKETBALL COACH LAB - HEMATOLOGY ORDERABLES Performing Organization Address [facility] Co de Phone Number [facility] [address] [place] [address], [facility] [phone] * NC LARYNGOSCOPY,FLEX FIBER,DIAGNOSTIC (08/11/2022 12:06 PM CDT) Narrative [...] MD PROCEDURE/MINOR SURG ICAL ORDERABLES Care Teams Geochemist Relationship Specialty Start Date End Date Sergio Bush PA-C [address] [facility] [address] [place] [address] PCP - General Physician Die Cutter 08/30/22
--- OUTSIDE RECORDS SUMMARY | 2024-04-14 07:15 | XMS_ITS ---
Author Organization [facility] Address [address] [facility] [address] [place] [address] Care Team Providers Care Education Diagnostician Name Role Phone Sergio Bush Primary Care Provider [place] Rangel [phone] Encounters Encounter Location Date Provider Diagnosis [facility] [address] [facility] [address] [place] [address] 09/17/2023 [place] MCKAY Plan Of Treatment No Information Progress Notes * Kelly SO[birth year]OB:[birth year] (58 yo F)Acc No.[id number]:09/17/2023 Patient: Yoselin WEBSTER :1965 A ge:58 Y S ex:Female Address:[address] [place] [address] * true * Date: Generated for Cuauhtemoc mcclendon/Maeve/eTransmitting on: 0 04/14/2024 07:14 AM CDT
--- OUTSIDE RECORDS SUMMARY | 2024-04-14 07:15 | XMS_ITS | Encounter Summary ---
Author Organization [facility] Address [address] [place] [address] Care Team Providers Care Career Coach Name Role Phone Sergio Bush Primary Care Provider Mariusz Carr MD Unavailable [phone] Fernando Hernández MD PhD Unavailable [phone] Miguel Larkin MD Unavailable [phone] Encounter Details Date Type Department Care Team (Late st Contact Info) Description 03/09/2023 Telephone [facility] Advanced Medicine Radiation Oncology [address] [facility] [place] [address] Alexander Rao, RN Social History Tobacco Use Types Packs/Day Years Used Date Smoking Tobacco: Never Smokeless Tobacco: Never Personal Safety Answer Date Recorded Getting School Help Needed Not on file 02/09 Comments Unknown Sex and Gender Information Value Date Recorded Sex Assigned at Not on file Legal Sex Female 10:11 PM MARKETING EDITOR Gender Identity Not on file Sexual Orientation Not on file documented as of this encounter Plan of Treatment Not on file documented as of this encounter Visit Diagnoses Not on filedocumented in this encounter Care Teams Career Coach Relationship Specialty Start Date End Date Sergio Bush PA [address] [address] PCP - General Physician Director Of Vocational Training 09/17/19 Mariusz Carr MD [address] [place] [address] Referring Physician Internal Medicine 02/09/23 Fernando Hernández MD PhD [address] [facility] [address] [facility] [address] [place] [address] Radiation Oncologist Radiation Oncology 03/20/23 Miguel Larkin MD [address] [facility] DEPT OTOLARYNGOLOGY, [address] [place] [address] Referring Physician Otolaryngology 03/20/23 documented as of this encounter
--- OUTSIDE RECORDS SUMMARY | 2024-04-14 07:15 | XMS_ITS | Encounter Summary ---
Author Organization [facility] Address [address] [place] [address] Care Team Providers Care Sill Worker Name Role Phone Dwayne Chandler DO Primary Care Provider [phone] Encounter Details Date Type Department Care Team (Late st Contact Info) Description 04/11/2024 External Device Data [facility] ABSTRACTION Provider, Abstract NO ADDRESS ON FILE Social History Tobacco Use Types Packs/Day Years Used Date Smoking Tobacco: Never Comments No Sex and Gender Information Value Date Recorded Sex Assigned at Not on file Legal Sex Female 11:11 PM CDT Gender Identity Not on file Sexual Orientation Not on file documented as of this encounter Plan of Treatment Upcoming Encounters Date Type Department Care Team (Late st Contact Info) Description 03/26/2025 9:00 AM CHIEF RESOURCE OFFICER Office Visit [facility] - [address] [address] [place] [address] [facility] [address] [place] [address] documented as of this encounter Visit Diagnoses Not on filedocumented in this encounter Care Teams Sill Worker Relationship Specialty Start Date End Date Dwayne Chandler DO [address] [facility] [address] [place] [address] PCP - General Internal Medicine 01/27/20 documented as of this encounter
--- OUTSIDE RECORDS SUMMARY | 2024-04-14 07:15 | XMS_ITS | Continuity of Care Document ---
Author Organization [facility] Address [address] [facility] [address] [place] [phone] Phone Care Team Providers Care Teamsite Developer Name Role Phone Mitch Moon MD Unavailable [...] on Encounter Independent Medical Examination ANTHONY [facility], [facility] [address], [id number], [place] tel:[phone] [facility] Right elbow (chief complaint) right shoulder and right wrist (chief complaint) Lateral epicondylitis, right elbowSprain of right rotator cuff capsule, sequelaCarpal tunnel syndrome, right upper limb 4 Sarai Meyer. [address] [place] [address], [id number], [place]. tel:[phone] [facility], [address] [place] [address], [id number], [place] tel:[phone] [facility] No Information 4 Sarai Meyer. [address] [place] [address], [place], [place], [id number], [place]. tel:[phone] [facility], [address], [place], [place], [id number], [place] tel:[phone] [facility] No Information 2 Sarai Meyer. [address] [facility], [place], [place], [id number], [place]. tel:[phone] Family History Family Member Type Diagnosis Age At Onset Mother Problem (finding) Heart Disease Father Problem (finding) Cancer, unknown Mother Problem (finding) Osteoporosis Immunizations Vaccine Date Status Comments influenza, injectable, quadr ivalent, (3 years or older) administered Source: Other Provid er Payers Payer name Insurance type Covered green party ID Authorsevero nickersonpierre(s) Exam Works [id number] Social History Type Description Quantity Date Captured [...] right wrist. 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 She has worked in this capacity with [employer] for 23 years. Ms. 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 After that, she was out of work for a few years until she started working for [employer]. Ms. Taylor explains that as a Charging Board Operator with [employer], she works in the [...] care physician, Dr. Edenilson Zepeda MD with [facility], on December 04, 2012. Dr. [...] then referred Ms. Taylor to Dr. Dennis Christnesen MD with [facility], [place] [facility]. Ms. Michael anthony saw Dr. Christensen [...] MRI was performed at [facility] on March 27, 2013. The MRI was [...] four days ago. 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 There are occupational therapy notes from [facility] ordered by Dr. Fred Child. The therapy notes extend from December 15, 2014 through February 25, 2015. The Initial Evaluation from the occupational therapist at [facility] notes that ...the patient related her right dominant elbow has bothered her for a few years but really became painful in February of this year due tothe new scanning system she must work with in the [employer]... She had injections in the elbow in June 2014 and her workload reduced because of reduced student population on campus her pain decreased. Now that the population is large again with school in session her pain is worse again.She is unable to get away from the elbow pain and is losing function... The Re-Evaluation note from [facility] dated February 25, 2015 indicated that Ms. Taylor attended occupational therapy twice per week for a total of 18 visits. The occupational therapist documented ...her employer has not modified her work station in an effort to remove the causative risk factor believed to be causing this injury... 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 Dr. Fred Child MD eventually took Ms. Taylor to surgery on June 09, 2015 at [facility] for her right elbow lateral epicondylitis. She was noted to have ...significant degeneration of the extensor carpi radialis brevis tendon origin with associated bony changes oflateral epicondyles... She underwent a right open debridement of lateral epicondyle and extensor wad with anconeus flap. Post-operatively, Ms. Taylor worked with occupational therapy againat [facility] in [place], [place] from 2015 through August 26, 2015. [...] note from Dr. Dianne Sparks MD with [facility] dated May 12, 2019. Dr. Sparks reported [...] She also referred her to Orthopedics at [facility]. Ms. Taylor was seen by Ziggy Ventura PA-C, working in collaboration with Dr. Enoc Albright MD with [facility]. Ms. Taylor was seen by Mr. [...] positive impingement signs to both Neers and Rsoe. She had pain but good strength with [...] note from Dr. Dianne Sparks MD with [facility] dated May 12, 2019. Dr. Sparks reported [...] She also referred her to Orthopedics at [facility]. Ms. Taylor was seen by Ziggy Ventura PA-C, working in collaboration with Dr. Enoc Albright MD with [facility]. Ms. Taylor was seen by Mr. [...] right wrist. 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 Ms. 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 After that, she was out of work for a few years until she started working for [employer]. Ms. 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 Edenilson Zepeda MD with [facility], on December 04, 2012. Dr. [...] Taylor to Dr. Dennis Christensen MD with [facility], [facility]. Ms. Taylor saw Dr. Christensen in [...] MRI was performed at [facility] on March 27, 2013. The MRI was [...] four days ago. 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 There is another MRI report from [facility] dated June 17, 2014, ordered by [...] well. There are occupational therapy notes from [facility] ordered by Dr. Fred Child. The therapy notes extend from December 15, 2014 through February 25, 2015. The Initial Evaluation from the occupational therapist at [facility] notes that ...the patient related her right dominant elbow has bothered her for a few years but really became painful in February of this year due to the new scanning system she must work with in the [employer]... She had injections in the elbow in June 2014 and her workload reduced because of reduced student population on campus her pain decreased. Now that the population is large again with school in session her pain is worse again. She is unable to get away from the elbow pain and is losing function... The Re-Evaluation note from [facility] dated February 25, 2015 indicated that Ms. Taylor attended occupational therapy twice per week for a total of 18 visits. The occupational therapist documented ...her employer has not modified her work station in an effort to remove the causative risk factor believed to be causing this injury... 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 Dr. Fred Child MD eventually took Ms. Taylor to surgery on June 09, 2015 at [facility] for her right elbow lateral epicondylitis. 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 She underwent a right open debridement of lateral epicondyle and extensor wad with anconeus flap. Post-operatively, Ms. Taylor worked with occupational therapy again at [facility] in [place], [place] from 2015 through August 26, 2015. [...] right elb ow impression I performed [facility] physical examination for Ms. Yoselin Heredia, and I also reviewed the medical records provided, including a prescription for physical therapy for the low back from July 06, 1999, a physical therapy note from [facility] dated July 11, 1999, another PT prescription for the neck and upper back dated November 03, 2005, additional PT notes from [facility] from November 15, 2005 through October 18, 2009, primarily for low back pain, office notes from Dr. Edenilson Zepeda MD from September 21, 2010 at which time Ms. Taylor presented to [facility], emergency room notes from [facility] dated July 03, 2011 when Ms. Taylor [...] right elbow pain, physical therapy notes from [facility] dated December 10, 2012 through February 13, 2013 relative to a right cervical strain, right rotator cuff tendonitis, and right elbow extensor tendonitis, office notes from Dr. Dennis Christensen MD with [facility], [facility] dated March 05, 2013 for right elbow pain, an MRI right elbow report from [facility] dated March 27, 2013, additional office notes from Dr. Zepeda dated July 28, 2013 through March 09, 2024 with regards to lab findings suggesting pre-diabetes, labyrinthitis, and then a recurrence of right shoulder and elbow pain, a physical therapy prescription to [facility] for the right shoulder and right elbow dated March 09, 2014, physical therapy notes from [facility] from March 11, 2014 through April 23, 2014, office notes from Dr. Zepeda dated April 06, 2014 regarding headaches, an MRI right elbow report from [facility] dated June 17, 2014, occupational therapy notes from [facility] from December 15, 2014 through February 25, 2015 relative to right elbow tendonitis, the operative report from Dr. Fred Child MD at [facility] dated June 09, 2015, [facility] through August 26, 2015 [...] notes from Dr. Dulce Villalta MD with [facility] dated February 14, 2017 regarding chills and a cough, office notes from Dr. 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 After that, she was out of work for a few years until she started working for [employer]. The claimant went on to explain that as a Charging Board Operator with [employer], she has worked in [...] and which I would consider to be ygv-fibs-xrfmzab. She also has a history of right [...] shoulder, or right wrist. She does take zjqa-tgm-zkhuvlh Ibuprofen as needed, and she uses Voltaren topical gel kaur-yhl-tbwysmi. These are both appropriate. 14. Is additional [...]
--- OUTSIDE RECORDS SUMMARY | 2024-04-14 07:15 | XMS_ITS | Clinical Summary ---
Author Organization [address] Address [address] [place] [address] Care Team Providers Care Family Literacy Coordinator Name Role Phone RameshDwayne Primary Care Provider [phone] Allergies Active Allergy Reactions Criticality Noted Date [...] by mouth daily in the morning. Active Magnesium 250 mg Tablet Take by mouth. Active Active Problems No known active problems Encounters Date Type Department Care Team Description 04/11/2024 External Device Data [facility] ABSTRACTION Provider, Abstract 04/09/2024 External Device Data [facility] ABSTRACTION Provider, Abstract 03/26/2024 External Device Data [facility] ABSTRACTION Provider, Abstract 03/26/2024 External Device Data [facility] ABSTRACTION Provider, Abstract 03/20/2024 Results Follow-Up [address] [address] Anastasiya Ritter, WASTE COLLECTION DRIVER ESTRADIOL, TESTOSTERONE FREE AND TOTAL 03/19/2024 9:00 AM ANCHOR OPERATOR Office Visit [address] [address] Anastasiya Ritter NP Postmenopause (Primary Dx); Encounter for gynecological examination without abnormal finding; Arthralgia, unspecified joint 02/19/2024 External Device Data [facility] ABSTRACTION Provider, [...] Sign Reading Time Taken Comments Blood Pressure 126/82 03/19/2024 8:57 AM ANCHOR OPERATOR Pulse - - Temperature 37 C (98.6 F) 01/27/2020 9:49 AM ANCHOR OPERATOR Respiratory Rate - - Oxygen Saturation - - Inhaled Oxygen Concentration - - Weight 88.8 kg (195 lb 12.8 oz) 03/19/2024 8:57 AM ANCHOR OPERATOR Height 162.6 cm (5' 4 ) 03/19/2024 8:57 AM ANCHOR OPERATOR Body Mass Index 33.61 03/19/2024 8:57 AM ANCHOR OPERATOR Plan of Treatment Upcoming Encounters Date Type Department Care Team (Late st Contact Info) Description 03/26/2025 9:00 AM ANCHOR OPERATOR Office Visit [facility] - [address] [place], [place] [id number] [address] [address] [place] [address] [facility] [address] [place] [address] Health Maintenance Due Date Last [...] 02/03/2020, 01/07 INFLUENZA VACCINE (#1) 2023 , 11/24/2019, 11/22/2018, Additional history exists CERVICAL CANCER SCREENING 02/08/20252022, 08/19/2018, 08/16/2017 (Previously completed) RSV VACCINE (60+ or ) (1 - 1-dose 75+ series) 06/28/2038 HEPATITIS B VACCINES Aged Out No long er eligible based on patient's age to complete this topic Procedures Procedure Name Priority Date/Time Associated Diagnosis Comments TESTOSTERONE FREE AND TOTAL Routine 03/19/2024 9:30 AM ANCHOR OPERATOR Postmenopause Arthralgia, unspecified joint ESTRADIOL Routine 03/19/2024 9:30 AM ANCHOR OPERATOR Postmenopause Arthralgia, unspecified joint FSH Routine 03/19/2024 9:30 AM ANCHOR OPERATOR Postmenopause Arthralgia, unspecified joint CERV/VAG CYTO AGE BASED SCREEN PAP Routine 02/08/2022 9:37 AM ANCHOR OPERATOR Well woman exam with routine gynecological exam MAMMO SCREEN BILAT W OR WO CAD Routine 02/03/2020 Breast cancer screening by mammogram from Last 3 Months or Most Recently Relevant to Health Maintenance Results * TESTOSTERONE FREE AND TOTAL (03/19/2024 9:30 AM ANCHOR OPERATOR) TESTOSTERONE 32 2 - 45 ng/dL [facility] Comment: For additional information, please refer to https://education.Ohana.Ntractive/faq/ULK185 (This link is being provided for informational/educational purposes only.) (Note) This test was developed and its analytical performance characteristics have been determined by [facility]. It has not been cleared or approved by the FDA. This assay has been validated pursuant to the CLIA regulations and is used for clinical purposes. TESTOSTERONE FREE 3.9 0.1 - 6.4 pg/mL [facility] Comment: (Note) This test was developed and its analytical performance characteristics have been determined by [facility]. It has not been cleared or approved by the FDA. This assay has been validated pursuant to the CLIA regulations and is used for clinical purposes. [facility] [address] [address],[address] [place] [address] Rose Mary Phillips MD, PhD Test Performed at: [facility] [address] [place] [address], [address] [place] [address] Rose Mary Phillips MD,PhD Blood 03/19/2024 9:30 AM ANCHOR OPERATOR 03/19/2024 9:32 AM ANCHOR OPERATOR us Anastasiya Ritter NP CHEMISTRY ORDERABLES Final Res ult [facility] [phone] [facility] [address] [place] [address], [address] [place] [phone] * ESTRADIOL (03/19/2024 9:30 AM ANCHOR OPERATOR) [facility] ESTRADIOL 21 pg/mL [facility] Comment: Reference Range Follicular Phase: 19-144 Mid-Cycle: 64-357 Luteal Phase: 56-214 Postmenopausal: < or = 31 Reference range established on post-pubertal patient population. No pre-pubertal reference range established using this assay. For any patients for whom low Estradiol levels are anticipated (e.g. males, pre-pubertal children and hypogonadal/post-menopausal females), the [facility] Estradiol, Ultrasensitive, LCMSMS assay is recommended (order code 64902). Please note: patients being treated with the drug fulvestrant (Faslodex(R)) have demonstrated significant interference in immunoassay methods for estradiol measurement. The cross reactivity could lead to falsely elevated estradiol test results leading to an inappropriate clinical assessment of estrogen status. [facility] order code [id number], Ultrasensitive LC/MS/MS demonstrates negligible cross reactivity with fulvestrant. Test Performed at: [facility] [address] [place] [address] [facility]mi-Clarau Thi Vo Blood 03/19/2024 9:30 AM ANCHOR OPERATOR 03/19/2024 9:32 AM ANCHOR OPERATOR Anastasiya Ritter WASTE COLLECTION DRIVER CHEMISTRY ORDERABLES Final Res ult [facility] [phone] [facility] [address] [place] [address] * FSH (03/19/2024 9:30 AM ANCHOR OPERATOR) FSH 111.4 mIU/mL [facility] Comment: Reference Range Follicular Phase 2.5-10.2 Mid-cycle Peak 3.1-17.7 Luteal Phase 1.5- 9.1 Postmenopausal 23.0-116.3 Test Performed at: [facility] [address] [place] [address] Endy Cox MD Blood 03/19/2024 9:30 AM ANCHOR OPERATOR 03/19/2024 9:32 AM ANCHOR OPERATOR Anastasiya Ritter WASTE COLLECTION DRIVER CHEMISTRY ORDERABLES Final Res ult Performing Organization Address City/State/ZIP Co id Phone Number [facility] [phone] [facility] [address] [place] [address] * CERV/VAG CYTO AGE BASED SCREEN PAP (02/08/2022 9:37 AM ANCHOR OPERATOR) COMMENT (PAP): [facility] [place] Comment: This order for age-based cervical cancer and STI screening follows ACOG guidelines(PB 168, 140, YVB286). See individual assays for performing site location. CLINICAL INFORMATION [facility] [place] Comment:None given LAST MENSTRUAL PERIOD [facility] [place] Comment:NONE GIVEN PREV PAP: [facility] [place] Comment:NONE GIVEN PREV BX: [facility] [place] Comment:NONE GIVEN SOURCE [facility] [place] Comment:Endocervix ADEQUACY: [facility] [place] Comment: Satisfactory for evaluation. Endocervical/transformation zone component present. Age and/or menstrual status not provided PAP INTERP [facility] [place] Comment:Negative for intraep ithelial lesion or malignancy. COMMENT (PAP TEST) [facility] [place] Comment: This Pap test has been evaluated with computer assisted technology. EQUITY TRADER: Jonnathan Du Comment: MMW, CT(ASCP) CT screening location: [place] [address] [place], [facility] EXPLANATORY NOTE [employer] PencilAriella Du Comment: EXPLANATORY NOTE: The Pap is [...] information. HPV E6/E7 Not Detected Not Detected [employer] Ana Laura Comment: Methodology: Insulation Blower-Mediated Amplification This assay detects E6/E7 viral messenger RNA (mRNA) from 14 high-risk HPV types (16,18,31,33,35,39,45,51,52,56,58,59,66,68). Cervical sources are required for HPV testing. If a vaginal source from a patient who has had a total hysterectomy with removal of cervix was submitted, please contact the testing laboratory for alternative testing options. For additional information, please refer to http://education.Axcient/faq/OFP859l5 (This link if provided for information/ educational purposes only.) Test Performed at: [facility] [address] [address] Mitch Silva D.O., MPH SL Genital SWAB OF ENDOCERVIX / Unknown 02/08/2022 9:37 AM ANCHOR OPERATOR 02/08/2022 11:08 PM ANCHOR OPERATOR Caprice Saldivar DO PATHOLOGY/CYTOLOGY ORDERABL ES Final Result [facility] [phone] [facility] [address] [address] [address] * MAMMO SCREEN BILAT W OR WO CAD (02/03/2020) Anatomical Region Laterality Modality Breast Bilateral Other us Caprice Saldivar DO MAMMO ORDERABLES Final Resu lt from Last 3 Months or Most Recently Relevant to Health Maintenance Insurance [facility] [employer] Care Teams Family Literacy Coordinator Relationship Specialty Start Date End Date Dwayne Chandler DO [address] [facility] [address] [place] [address] PCP - General Internal Medicine 01/27/20
== END 2024-04-14 07:11 | disposition home or self-care (01) ==
PROVIDERS: PCP Internal Medicine; Visit Provider Nurse Practitioner
DX: M25.551 Pain in right hip (principal)
CPT/HCPCS: 73502

== ENCOUNTER 2024-04-24 13:52 | Outpatient (CLI) | payer BC, SELFPAY ==
--- NOTE | 2024-04-24 14:08 | ECG_ITS ---
Test Date: 2024-04-24 14:17:56 Measurements Intervals [place] Rate: 66 P: 46 IL: 174 QRS: -31 QRSD: 94 T: 33 QT: 383 QTc: 401 Interpretive Statements SINUS RHYTHM LEFT AXIS DEVIATION [QRS AXIS < -30] No previous ECG available for comparison Electronically Signed On 04-25-2024 18:19:32 CDT by Jayme Cash M.D.
--- OUTSIDE RECORDS SUMMARY | 2024-04-24 14:16 | XMS_ITS | Clinical Summary ---
Author Organization [address] Address [address] [place] [phone] Care Team Providers Care Manager Green Name Role Phone RameshDwayne Primary Care Provider [phone] Allergies Active Allergy Reactions Criticality Noted Date [...] Encounters Date Type Department Care Team Description 04/16/2024 External Device Data [facility] ABSTRACTION Provider, Abstract 04/15/2024 External Device Data [facility] Provider, Abstract 04/14/2024 External Device Data [facility] Provider, Abstract 04/12/2024 External Device Data [facility] Provider, Abstract 04/11/2024 External Device Data [facility] Provider, Abstract 04/09/2024 External Device Data [facility]STRACTION Provider, Abstract 03/26/2024 External Device Data [facility]STRA[facility] Provider, Abstract 03/26/2024 External Device Data [facility] ABSTRACTION Provider, Abstract 03/20/2024 Results Follow-Up [facility] - [address] [place] [phone] Anastasiya Ritter NP ESTRADIOL, TESTOSTERONE FREE AND TOTAL 03/19/2024 9:00 AM DEPARTMENT SPECIALIST Office Visit [place] [phone] Anastasiya Ritter NP Postmenopause (Primary Dx); Encounter [...] Comments Blood Pressure 126/82 03/19/2024 8:57 AM DEPARTMENT SPECIALIST Pulse - - Temperature 37 C (98.6 F) 01/27/2020 9:49 AM DEPARTMENT SPECIALIST Respiratory Rate - - Oxygen Saturation - - Inhaled Oxygen Concentration - - Weight 88.8 kg (195 lb 12.8 oz) 03/19/2024 8:57 AM DEPARTMENT SPECIALIST Height 162.6 cm (5' 4 ) 03/19/2024 8:57 AM DEPARTMENT SPECIALIST Body Mass Index 33.61 03/19/2024 8:57 AM DEPARTMENT SPECIALIST Plan of Treatment Upcoming Encounters Date Type Department Care Team (Late st Contact Info) Description 03/26/2025 9:00 AM DEPARTMENT SPECIALIST Office Visit [facility] - [address] [place] [phone] Caprice Saldivar, [address] [place], [place] [phone] Health Maintenance Due Date Last Done Comments Pre-Diabetes and Diabetes Screening 1965 COLORECTAL SCREENING 06/28/2008 Colorectal Cancer Screening 06/28/2008 FIT-DNA Q 3 years 06/28/2008 FIT/FOBT Q 1 year 06/28/2008 Flex Sig/CT Colonography Q 5 years 06/28/2008 ZOSTER VACCINE (1 of 2) 06/28/2013 DTAP/TDAP/TD VACCINES (2 - Td or Tdap) 09/21/2020 09/21/2010 BREAST CANCER SCREENING 02/02/2021 02/03/2020, 01/07 HPV/Cotest 08/20/2023 08/19/2018 INFLUENZA VACCINE (#1) 2023 , 11/24/2019, 11/22/2018, Additional history exists CERVICAL CANCER SCREENING 02/08/2025 PAP SMEAR 02/08/2025 02/08/2022, 08/19/2018 PAP SMEAR 02/08/2025 02/08/2022, 08/05, 08/16/2017 (Previously completed) RSV VACCINE (60+ or ) (1 - 1-dose 75+ series) 06/28/2038 Preventative Visit- Commercial Completed 03/19/2024, 03/01/2023, 02/08/2022, Additional history exists HEPATITIS B VACCINES Aged Out No long er eligible based on patient's age to complete this topic Procedures Procedure Name Priority Date/Time Associated Diagnosis Comments TESTOSTERONE FREE AND TOTAL Routine 03/19/2024 9:30 AM DEPARTMENT SPECIALIST Postmenopause Arthralgia, unspecified joint ESTRADIOL Routine 03/19/2024 9:30 AM DEPARTMENT SPECIALIST Postmenopause Arthralgia, unspecified joint FSH Routine 03/19/2024 9:30 AM DEPARTMENT SPECIALIST Postmenopause Arthralgia, unspecified joint CERV/VAG CYTO AGE BASED SCREEN PAP Routine 02/08/2022 9:37 AM DEPARTMENT SPECIALIST Well woman exam with routine gynecological exam MAMMO SCREEN BILAT W OR WO CAD Routine 02/03/2020 Breast cancer screening by mammogram CERV/VAG CYTO SCREEN PAP W/HPV Routine 08/19/2018 12:25 PM CDT Well woman exam from Last 3 Months or Most Recently Relevant to Health Maintenance Results * TESTOSTERONE FREE AND TOTAL (03/19/2024 9:30 AM DEPARTMENT SPECIALIST) TESTOSTERONE 32 2 - 45 ng/dL [facility] Comment: For additional information, please refer to https://education.[employer]/faq/RFX631 (This link is being provided for informational/educational purposes only.) (Note) This test was developed and its analytical performance characteristics have been determined by [employer]. It has not been cleared or approved by the FDA. This assay has been validated pursuant to the CLIA regulations and is used for clinical purposes. TESTOSTERONE FREE 3.9 0.1 - 6.4 pg/mL [facility] Comment: (Note) This test was developed and its analytical performance characteristics have been determined by [employer]. It has not been cleared or approved by the FDA. This assay has been validated pursuant to the CLIA regulations and is used for clinical purposes. [facility] [employer] [address] [place] [address],[address] [place] [address] Rose Mary Phillips MD, PhD Test Performed at: [facility] [address] [place] [address], [address] [place] [phone] Rose Mary Phillips MD,PhD Blood 03/19/2024 9:30 AM DEPARTMENT SPECIALIST 03/19/2024 9:32 AM DEPARTMENT SPECIALIST us Anastasiya Ritter NP CHEMISTRY ORDERABLES Final Res ult [facility] [phone] [employer] [facility] [address] [place] [address], [address] [place] [phone] * ESTRADIOL (03/19/2024 9:30 AM DEPARTMENT SPECIALIST) ESTRADIOL 21 pg/mL [facility] Comment: Reference Range Follicular Phase: 19-144 Mid-Cycle: 64-357 Luteal Phase: 56-214 Postmenopausal: < or = 31 Reference range established on post-pubertal patient population. No pre-pubertal reference range established using this assay. For any patients for whom low Estradiol levels are anticipated (e.g. males, pre-pubertal children and hypogonadal/post-menopausal females), the [facility] Estradiol, Ultrasensitive, LCMSMS assay is recommended (order code 05524). Please note: patients being treated with the drug fulvestrant (Faslodex(R)) have demonstrated significant interference in immunoassay methods for estradiol measurement. The cross reactivity could lead to falsely elevated estradiol test results leading to an inappropriate clinical assessment of estrogen status. [facility] order code [id number]-Ggudiqups, Ultrasensitive LC/MS/MS demonstrates negligible cross reactivity with fulvestrant. Test Performed at: [facility] [place] [address] [place] [address] Endy Cox Blood 03/19/2024 9:30 AM DEPARTMENT SPECIALIST 03/19/2024 9:32 AM DEPARTMENT SPECIALIST us Anastasiya iRtter NP CHEMISTRY ORDERABLES Final Res ult Performing Organization Address City/[facility]/ZIP Code Phone Number [facility] [phone] [place] [address] [place] [phone] * FSH (03/19/2024 9:30 AM DEPARTMENT SPECIALIST) FSH 111.4 mIU/mL [facility] Comment: Reference Range Follicular Phase 2.5-10.2 Mid-cycle Peak 3.1-17.7 Luteal Phase 1.5- 9.1 Postmenopausal 23.0-116.3 Test Performed at: [facility] [address] [place] [address] [facility] MD Blood 03/19/2024 9:30 AM DEPARTMENT SPECIALIST 03/19/2024 9:32 AM DEPARTMENT SPECIALIST Anastasiya Ritter NP CHEMISTRY ORDERABLES Final Res ult Performing Organization Address City/State/ZIP Co ny Phone Number [facility] [phone] [facility] [address] [facility] [place] [address] * CERV/VAG CYTO AGE BASED SCREEN PAP (02/08/2022 9:37 AM DEPARTMENT SPECIALIST) COMMENT (PAP): [facility] [place] Comment: This order for age-based cervical cancer and STI screening follows ACOG guidelines(PB 168, 140, GWH467). See individual assays for performing site location. CLINICAL INFORMATION [facility] [place] Comment:None given LAST MENSTRUAL PERIOD [facility] [place] Comment:NONE GIVEN PREV PAP: [facility] [place] Comment:NONE GIVEN PREV BX: [facility] [place] Comment:NONE GIVEN SOURCE [facility] [place] Comment:Endocervix ADEQUACY: [facility] [place] Comment: Satisfactory for evaluation. Endocervical/transformation zone component present. Age and/or menstrual status not provided PAP INTERP [facility] [place] Comment:Negative for intraep ithelial lesion or malignancy. COMMENT (PAP TEST) [facility] [place] Comment: This Pap test has been evaluated with computer assisted technology. HOSPITAL EDUCATION COORDINATOR: [facility] [place] Comment: MMW, CT(ASCP) CT screening location: [place] [address] [place] [address] EXPLANATORY NOTE [facility] [place] Comment: EXPLANATORY NOTE: The Pap is a [...] information. HPV E6/E7 Not Detected Not Detected [facility] [place] Comment: Methodology: B Operator-Mediated Amplification This assay detects E6/E7 viral messenger RNA (mRNA) from 14 high-risk HPV types (16,18,31,33,35,39,45,51,52,56,58,59,66,68). Cervical sources are required for HPV testing. If a vaginal source from a patient who has had a total hysterectomy with removal of cervix was submitted, please contact the testing laboratory for alternative testing options. For additional information, please refer to http://education.[employer]/faq/HLT880t5 (This link if provided for information/ educational purposes only.) Test Performed at: [facility] [address] [place] [address] Mitch Silva D.O., MPH SL Genital SWAB OF ENDOCERVIX / Unknown 02/08/2022 9:37 AM DEPARTMENT SPECIALIST 02/08/2022 11:08 PM DEPARTMENT SPECIALIST Caprice Saldivar DO PATHOLOGY/CYTOLOGY ORDERABL ES Final Result [facility] [phone] [facility] [address] [place] [address] * MAMMO SCREEN BILAT W OR WO CAD (02/03/2020) Anatomical Region Laterality Modality Breast Bilateral Mammography Caprice Saldivar DO MAMMO ORDERABLES Final Resu lt * CERV/VAG CYTO SCREEN PAP W/HPV (08/19/2018 12:25 PM CDT) CASE REPORT Gynecologic Cytology Report Case: [id number] Authorizing Provider: Caprice Saldivar DO Collected: 08/19/2018 12:25 PM Ordering Location: [facility] Received: 08/19/2018 04:07 PM [facility] [address] [place] [address] First Screen: Luz Maria Galvan Specimen: LB PAP TP AND HPV PROT, Endocervix 08/23/2018 1:24 PM [facility] [facility] Specimen Adequacy Satisfactory for evaluation, endocervical/tovar sformation zone component present 08/23/2018 1:24 PM T [facility] [employer] Interpretation Negative for intraepithelial lesion or malignancy 08/23/2018 1:24 PM [facility] [facility] Educational Note 08/23/2018 1:24 PM [facility] Comment:The Pap test is a sc reening test used to aid in the detection of cervical cancer and its precursors. It should not be the sole means by which malignant and premalignant lesions are diagnosed. Both false negative and false positive results may occur. Results must be interpreted in the context of historic and current clinical information. EMBEDDED IMAGE 08/23/2018 1:24 PM T [facility] Genital SWAB OF ENDOCERVIX / Unknown Collection / Unknown 08/19/2018 12:25 PM CDT 08/19/2018 4:07 PM CDT Caprice Saldivar DO PATHOLOGY/CYTOLOGY ORDERABL ES Final Result [facility] CLIA# [id number] [place] [address] from Last 3 Months or Most Recently Relevant to Health Maintenance Insurance [facility] [employer] Care Teams Manager Green Relationship Specialty Start Date End Date Dwayne Chandler DO [address] [facility] [address] [place] [address] PCP - General Internal Medicine 01/27/20
--- OUTSIDE RECORDS SUMMARY | 2024-04-24 14:16 | XMS_ITS | Continuity of Care Document ---
Author Organization [facility] Address [address] [facility] [address] [place] [address] Phone Care Team Providers Care Watch Assembly Instructor Name Role Phone Mitch Moon MD [...] on Encounter Independent Medical Examination [facility], [facility] [address], [id number], [place] tel:[phone] [facility] Right elbow (chief complaint) right shoulder and right wrist (chief complaint) Lateral epicondylitis, right elbowSprain of right rotator cuff capsule, sequelaCarpal tunnel syndrome, right upper limb 4 Sarai Meyer. [address] [place] [address], [id number], [place]. tel:[phone] [facility], [address] [place] [address], [id number], [place] tel:[phone] [facility] No Information 4 Sarai Meyer. [address] [place] [address], [place], [place], [id number], [place]. tel:[phone] [facility], [address] [facility], [place], [place], [id number], [place] tel:[phone] [facility] No Information 2 Sarai Meyer. [address] [facility], [place], [place], [id number], [place]. tel:[phone] Family History Family Member Type Diagnosis Age At Onset Mother Problem (finding) Heart Disease Father Problem (finding) Cancer, unknown Mother Problem (finding) Osteoporosis Immunizations Vaccine Date Status Comments influenza, injectable, quadr ivalent, (3 years or older) administered Source: Other Provid er Payers Payer name Insurance type Covered libertarian ID Authorsevero nickersonpierre(s) Exam Works [id number] Social History Type Description Quantity Date Captured [...] right wrist. 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 Ms. 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 After that, she was out of work for a few years until she started working for [employer]. Ms. Taylor explains that as a Kitchen Chef with [employer], she works in the [...] care physician, Dr. Edenilson Zepeda MD with [facility], on December 04, 2012. Dr. [...] Taylor to Dr. Dennis Christensen MD with [facility]. Ms. Michael anthony saw Dr. Christensen [...] MRI was performed at [facility] on March 27, 2013. The MRI was [...] four days ago. 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 There are occupational therapy notes from [facility] ordered by Dr. Fred Child. The therapy notes extend from December 15, 2014 through February 25, 2015. The Initial Evaluation from the occupational therapist at [facility] notes that ...the patient related her right dominant elbow has bothered her for a few years but really became painful in February of this year due tothe new scanning system she must work with in the [employer]... She had injections in the elbow in June 2014 and her workload reduced because of reduced student population on campus her pain decreased. Now that the population is large again with school in session her pain is worse again.She is unable to get away from the elbow pain and is losing function... The Re-Evaluation note from [facility] dated February 25, 2015 indicated that Ms. Taylor attended occupational therapy twice per week for a total of 18 visits. The occupational therapist documented ...her employer has not modified her work station in an effort to remove the causative risk factor believed to be causing this injury... 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 Dr. Fred Child MD eventually took Ms. Taylor to surgery on June 09, 2015 at [facility] for her right elbow lateral epicondylitis. She was noted to have ...significant degeneration of the extensor carpi radialis brevis tendon origin with associated bony changes oflateral epicondyles... She underwent a right open debridement of lateral epicondyle and extensor wad with anconeus flap. Post-operatively, Ms. Taylor worked with occupational therapy againat [facility] in [place], [place] from 2015 through August 26, 2015. [...] note from Dr. Dianne Sparks MD with [facility] dated May 12, 2019. Dr. Sparks [...] She also referred her to Orthopedics at [facility]. Ms. Taylor was seen by Ziggy Ventura PA-C, working in collaboration with Dr. Enoc Albright MD with [facility]. Ms. Taylor was seen by Mr. [...] note from Dr. Dianne Sparks MD with [facility] dated May 12, 2019. Dr. Sparks [...] She also referred her to Orthopedics at [facility]. Ms. Taylor was seen by Ziggy Ventura PA-C, working in collaboration with Dr. Enoc Albright MD with [facility]. Ms. Taylor was seen by Mr. [...] right wrist. 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 Ms. 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 After that, she was out of work for a few years until she started working for [employer]. Ms. 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 Edenilson Zepeda MD with [facility], on December 04, 2012. Dr. [...] Taylor to Dr. Dennis Christensen MD with [facility]. Ms. Taylor saw Dr. Christensen in [...] MRI was performed at [facility] on March 27, 2013. The MRI was [...] four days ago. 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 There is another MRI report from [facility] dated June 17, 2014, ordered by [...] well. There are occupational therapy notes from [facility] ordered by Dr. Fred Child. The therapy notes extend from December 15, 2014 through February 25, 2015. The Initial Evaluation from the occupational therapist at [facility] notes that ...the patient related her right dominant elbow has bothered her for a few years but really became painful in February of this year due to the new scanning system she must work with in the [employer]... She had injections in the elbow in June 2014 and her workload reduced because of reduced student population on campus her pain decreased. Now that the population is large again with school in session her pain is worse again. She is unable to get away from the elbow pain and is losing function... The Re-Evaluation note from [facility] dated February 25, 2015 indicated that Ms. Taylor attended occupational therapy twice per week for a total of 18 visits. The occupational therapist documented ...her employer has not modified her work station in an effort to remove the causative risk factor believed to be causing this injury... 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 Dr. Fred Child MD eventually took Ms. Taylor to surgery on June 09, 2015 at [facility] for her right elbow lateral epicondylitis. 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 She underwent a right open debridement of lateral epicondyle and extensor wad with anconeus flap. Post-operatively, Ms. Taylor worked with occupational therapy again at [facility] in [place], [place] from 2015 through August 26, 2015. [...] right elb ow impression I performed a [facility] history and physical examination for Ms. Yoselin Heredia, and I also reviewed the medical records provided, including a prescription for physical therapy for the low back from July 06, 1999, a physical therapy note from [facility] dated July 11, 1999, another PT prescription for the neck and upper back dated November 03, 2005, additional PT notes from [facility] from November 15, 2005 through October 18, 2009, primarily for low back pain, office notes from Dr. Edenilson Zepeda MD from September 21, 2010 at which time Ms. Taylor presented to [facility], emergency room notes from [facility] dated July 03, 2011 when Ms. [...] right elbow pain, physical therapy notes from [facility] dated December 10, 2012 through February 13, 2013 relative to a right cervical strain, right rotator cuff tendonitis, and right elbow extensor tendonitis, office notes from Dr. Dennis Christensen MD with [facility] dated March 05, 2013 for right elbow pain, an MRI right elbow report from [facility] dated March 27, 2013, additional office notes from Dr. Zepeda dated July 28, 2013 through March 09, 2024 with regards to lab findings suggesting pre-diabetes, labyrinthitis, and then a recurrence of right shoulder and elbow pain, a physical therapy prescription to [facility] for the right shoulder and right elbow dated March 09, 2014, physical therapy notes from [facility] from March 11, 2014 through April 23, 2014, office notes from Dr. Zepeda dated April 06, 2014 regarding headaches, an MRI right elbow report from [facility] dated June 17, 2014, occupational therapy notes from [facility] from December 15, 2014 through February 25, 2015 relative to right elbow tendonitis, the operative report from Dr. Fred Child MD at [facility] dated June 09, 2015, [facility] through August 26, 2015 [...] notes from Dr. Dulce Villalta MD with [facility] dated February 14, 2017 regarding chills and a cough, office notes from Dr. 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 After that, she was out of work for a few years until she started working for [employer]. The claimant went on to explain that as a Kitchen Chef with [employer], she has worked in [...] and which I would consider to be ddp-uujx-dxreumc. She also has a history of right [...] shoulder, or right wrist. She does take khzi-oeu-acqeztx Ibuprofen as needed, and she uses Voltaren topical gel ilhw-okt-dpniitc. These are both appropriate. 14. Is additional [...]
--- OUTSIDE RECORDS SUMMARY | 2024-04-24 14:16 | XMS_ITS | Clinical Summary ---
Author Organization [facility] Address [address] [place] [address] Care Team Providers Care Supervisor Extruding Department Name Role Phone Sergio Bush PA-C Primary Care Provide r Source Comments [facility],non-owned Affiliates and Associated Physician Practices is amultiple site organization consisting of ambulatory clinics and hospital sitesin [place], [place], [place] and [place]. This disclosure is being madepursuant to the Care Everywhere program and may not contain all information available regarding this patient. Last updated 17.[facility] Allergies Active Allergy Reactions Criticality Noted Date [...] 36.7 C (98.1 F) 01/02/2023 7:06 AM BUSINESS RELATIONSHIP MANAGER Respiratory Rate 18 01/02/2023 7:06 AM BUSINESS RELATIONSHIP MANAGER Oxygen Saturation 98% 01/02/2023 7:06 AM BUSINESS RELATIONSHIP MANAGER Inhaled Oxygen Concentration - - Weight 88.5 kg (195 lb) 10/19/2023 9:44 AM CDT Height 162.6 cm (5' 4 ) 10/19/2023 9:44 AM CDT Body Mass Index 33.47 10/19/2023 9:44 AM CDT Plan of Treatment Upcoming Encounters Date Type Department Care Team (Late st Contact Info) Description 10/24/2024 9:45 AM CDT Office Visit [facility] - ENT [address], [place] [address] Miguel Larkin MD [facility] [place] [address] Health Maintenance Due Date Last [...] complete this topic MENINGOCOCCAL (Group B) VACCINE SHARED DECISION-MAKING Aged Out No longer eligible based on patient's age to complete this topic MENINGOCOCCAL GROUPS A/C/Y/W VACCINE Aged Out No longer eligible based on patient's age to complete this topic Procedures Procedure Name Priority Date/Time Associated Diagnosis Comments BASIC METABOLIC PANEL (CALCIUM TOTAL) Routine 01/02/2023 1:23 AM [facility] Thyroid cancer from Last 3 Months or Most Recently Relevant to Health Maintenance Results * (ABNORMAL) BASIC METABOLIC PANEL (CALCIUM TOTAL) (01/02/2023 1:23 AM [facility]) BUN 9 7 - 26 mg/dL 01/02/2023 2:04 AM [facility] Creatinine 0.69 0.56 - 0.96 mg/dL 01/02/2023 2:04 AM [facility] Sodium 137 136 - 145 mmol/L 01/02/2023 2:04 AM [facility] Potassium 3.7 3.5 - 4.5 mmol/L 01/02/2023 2:04 AM [facility] Chloride 105 98 - 107 mmol/L 01/02/2023 2:04 AM [facility] CO2 24 22 - 29 mmol/L 01/02/2023 2:04 AM [facility] Glucose 116(H) 70 - 115 mg/dL 01/02/2023 2:04 AM [facility] Calcium 8.7 8.4 - 10.2 mg/dL 01/02/2023 2:04 AM [facility] Anion Gap 8 6 - 16 01/02/2023 2:04 AM [facility] BUN/Creatinine Ratio 13 7 - 23 01/02/2023 2:04 AM [facility] Osmolality Calculated 284 275 - 295 mOsm/kg 01/02/2023 2:04 AM [facility] eGFR by CKD-EPI >90 >=90 mL/min/1.7 3 m2 01/02/2023 2:04 AM [facility] Blood BLOOD SPECIMEN / Unknown Lab Venipuncture / Unknown 01/02/2023 1:23 AM [facility] 01/02/2023 1:34 AM BUSINESS RELATIONSHIP MANAGER Miguel Larkin MD LAB - CHEMISTRY ZULEYMA Delacruz Organization Address City/State/ZIP Co de Phone Number [facility] [address] [place] [address], [facility] [phone] from Last 3 Months or Most Recently Relevant to Health Maintenance Advance Directives * Full Code (Latest Code Status on File) Date Activated Date Inactivated Comments 01/01/2023 11:06 AM 01/02/2023 10:25 AM * Full Code Date Activated Date Inactivated Comments 09/12/2022 10:34 AM 09/13/2022 11:54 AM Care Teams Supervisor Extruding Department Relationship Specialty Start Date End Date Sergio Bush PA-C [address] [facility] [address] [place] [address] PCP - General Physician Note Taker 08/30/22
--- OUTSIDE RECORDS SUMMARY | 2024-04-24 14:16 | XMS_ITS ---
Author Organization [facility] Address [address] [facility] [address] [place] [address] Care Team Providers Care Templer Head Name Role Phone Sergio Bush Primary Care Provider [place] Rangel [phone] Medications Medication SIG (Take, Route, Frequency, Duration) [...] Active Encounters Encounter Location Date Provider Diagnosis [facility] [address] [facility] [address] [place], [place] [id number] 09/17/2023 [place] MCKAY Plan Of Treatment No Information Progress Notes * Kelly SOODOB:[birth year] (58 yo F)Acc No.[id number]:09/17/2023 Patient: Yoselin WEBSTER Provider: Shakeel Mckay MD :1965 A ge:58 Y S ex:Female Date:09/17/2023 Address:[address] [place], [place] Pcp:Sergio Bush Subjective: * Chief Complaints: * * Medical History: * Medications: T aking Omeprazole 10 MG Capsule Delayed Release 1 capsule 30 minutes before morning meal Orally Once a day , Taking Calcium 500 MG Tablet 1 tablet with meals Orally Twice a day , Taking Iron , Taking Vitamin D 50 MCG (1999 UT) Tablet 1 tablet Orally Once a day , Taking Synthroid 150 MCG Tablet 1 tablet in the morning on an empty stomach Orally Once a day Objective: * Vitals: Assessment: Plan: * Treatment: * * Electronic signature of YENY MCKAY MD on 04/24/2024 at 02:16 PM CDT Sign off status: Pending * Provider: Shakeel Mckay MD Date: 0 09/17/2023 Generated for Cuauhtemoc mcclendon/Maeve/Rocky on: 0 04/24/2024 02:16 PM CDT
--- OUTSIDE RECORDS SUMMARY | 2024-04-24 14:16 | XMS_ITS | Patient Health Record ---
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) Active confirmed Problem Pain co-occurrent and due to varicose veins of bilateral legs ([id number] 73881) Varicose veins of bilateral lower extremities with pain (I83.813) Active confirmed Problem Pain in limb (20521755) Pain in leg, unspecified (M79.606) Active confirmed Vital Signs Heart Rate 83 /min 08/16/2023 Respiratory Rate 16 /min 07/12/2023 Blood pressure diastolic 72 mm Hg 08/16/2023 Height 64 in 08/16/2023 Blood pressure systolic 132 mm Hg 08/16/2023 Weight 194.2 lbs 08/16/2023 BMI 33.33 kg/m2 08/16/2023 Encounters Encounter Location Date Provider Diagnosis [place] [id number] [address] [id number] 07/19/2023 [place] MCKAY [place] [address] [id number] 08/30/2023 [place] WOODY [place] [address] [id number] 09/17/2023 [place] [address] [id number] 07/12/2023 [place] MCK[place] Pain in leg, unspecified M79.606 ; Varicose veins of bilateral lower extremities with pain I83.813 ; Phlebitis and thrombophlebitis of iliac vein, bilateral I80.213 ; Other obesity due to excess calories E66.09 and Family history of ischemic heart disease and other diseases of the circulatory system Z82.[address] [address] 08/10/2023 [place] WOODY Phlebitis and thrombophlebitis of iliac vein, bilateral I80.213 ; Pain in leg, unspecified M79.606 and Varicose veins of bilateral lower extremities with pain I83.813 [facility] [address] [place] [address] 08/16/2023 [place] WOODY Phlebitis and thrombophlebitis of iliac vein, bilateral I80.213 ; Pain in leg, unspecified M79.606 and Varicose veins of bilateral lower extremities with pain I83.813 [facility] [address] [place] [address] 07/12/2023 [place] MCKAY [facility] [address] [place] [address] 07/19/2023 [place] MCKAY [facility] [address] [place] [address] 08/13/2023 [place] MCKAY [facility] [address] [place] [address] 08/16/2023 [place] MCKAY [facility] [address] [place] [address] 08/30/2023 [place] MCKAY [facility] [address] [facility] [address] [place] [address] 08/30/2023 [place] MCKAY [facility] [address] [facility] [address] [place] [address] 09/17/2023 [place] MCKAY Assessments Encounter Date Diagnosis [...] Insured Coverage Start Date Coverage End Date [facility] [address] [place] [address] [id number] Yoselin Taylor Self - patient is the insured Medical (General) History Medical History History ICD Code Hypothyroidism Cancer sleep apnea Surgical History Surgery Date(Month/Year) throidectomy elbow Tubal
--- OUTSIDE RECORDS SUMMARY | 2024-04-24 14:16 | XMS_ITS | Encounter Summary ---
Author Organization [facility] Address [address] [place] [address] Care Team Providers Care Clean Room Operator Name Role Phone Dwayne Chandler DO Primary Care Provider [phone] Encounter Details Date Type Department Care Team (Late Contact Info) Description 03/20/2024 Results Follow-Up [facility] - [address] [place] [address] Anastasiya Ritter, [place] [address] [id number] ESTRADIOL, TESTOSTERONE FREE AND TOTAL Social History [...] (Late Contact Info) Description 03/26/2025 9:00 AM MANAGER DIVISION Office Visit [facility] - [address] [place] [address] [place] [address] [facility] [address] [place] [address] documented as of this encounter Visit Diagnoses Not on filedocumented in this encounter Care Teams Clean Room Operator Relationship Specialty Start Date End Date Dwayne Chandler DO [address] [facility] [address] [place] [address] PCP - General Internal Medicine 01/27/20 documented as of this encounter
--- OUTSIDE RECORDS SUMMARY | 2024-04-24 14:17 | XMS_ITS ---
Author Organization [facility] Address [address] [facility] [address] [place] [address] Care Team Providers Care Tribal Delegate Name Role Phone Sergio Bush Primary Care Provider [place] Rangel [phone] Encounters Encounter Location Date Provider Diagnosis [facility] [address] [facility] [place] [address] [place] [address] 09/17/2023 [place] MCKAY Plan Of Treatment No Information Progress Notes * Kelly SOODOB:[birth year] (58 yo F)Acc No.[id number]:09/17/2023 Patient: Yoselin WEBSTER :1965 A ge:58 Y S ex:Female Address:[address] [place] [address] * true * Date: Generated for Cuauhtemoc mcclendon/Maeve/eTransmitting on: 0 04/24/2024 02:16 PM CDT
--- OUTSIDE RECORDS SUMMARY | 2024-04-24 14:17 | XMS_ITS ---
Author Organization [facility] Address [address] [facility] [address] [place] [address] Care Team Providers Care Agricultural Produce Sorter Name Role Phone Sergio Bush Primary Care Provider [place] Rangel [phone] REASON FOR VISIT Trying to reach patient Encounters Encounter Location Date Provider Diagnosis [facility] [address] [facility] [address] [place] [address] 08/30/2023 [place] MCKAY Plan Of Treatment No Information Progress Notes * Kelly SOODOB:[birth year] (58 yo F)Acc No.[id number]:08/30/2023 Patient: Yoselin WEBSTER :1965 A ge:58 Y S ex:Female Address: [facility] [place] [address] * true * Date: Generated for Elissai hakan/Maeve/eTransmitting on: 0 04/24/2024 02:16 PM CDT
[2024-04-24 14:47] LABS: Basophils Absolute Auto 0.1 K/mm3 (0.0-0.1); Basophils Percent Auto 1.1 % (0.2-1.2); Eosinophils Absolute Auto 0.2 K/mm3 (0-0.3); Eosinophils Percent Auto 2.8 % (0-4.4); Hematocrit 43.2 % (37.0-47.0); Hemoglobin 14.2 g/dL (12.0-15.0); Immature Granulocyte Absolute 0.01 K/mm3 (0.00-0.031); Immature Granulocyte Percent A 0.2 % (0-0.5); Lymphocytes Absolute Auto 2.78 K/mm3 (0.9-3.2); Mean Corpuscular HGB Conc 32.9 g/dl (32-36); Mean Corpuscular Hemoglobin 32.6 pg (26-34); Mean Corpuscular Volume 99.1 fl (80-100); Monocytes Absolute Auto 0.5 K/mm3 (0.1-0.6); Monocytes Percent Auto 7.3 % (2.6-8.5); Neutrophils Percent Auto 45.6 % (45.5-73.1); Platelet Count Result 295 k/mm3 (150-375); Red Blood Count 4.36 M/mm3 (4.2-5.4); Red Cell Distribution Width 12.7 % (11.5-14.5); White Blood Count 6.5 K/mm3 (4.5-10.0)
[2024-04-24 15:08] LABS: Anion Gap 7 mmol/L (4-12); Blood Urea Nitrogen 14 mg/dL (7-17); Calcium 9.5 mg/dL (8.4-10.2); Carbon Dioxide 31 mmol/L (22-30); Chloride 102 mmol/L (98-107); Estimated Glomerular Filt Rate > 60; Glucose 95 mg/dL (65-110); Potassium 4.2 mmol/L (3.4-5.0); Sodium 140 mmol/L (137-145)
== END 2024-04-24 13:53 | disposition home or self-care (01) ==
LOC: ANHLAB 13:53
PROVIDERS: PCP Internal Medicine; Visit Provider Internal Medicine
DX: Z01.810 Encounter for preprocedural cardiovascular examination (principal)
CPT/HCPCS: 36415; 80048; 85025; 93005

== ENCOUNTER 2024-08-21 09:49 | Outpatient (CLI) | payer BC, SELFPAY ==
--- NOTE | ~2024-08-21 | US_ITS ---
Renal-Bladder ultrasound Clinical History: Renal cyst Technique: Real-time sonographic imaging of the kidneys and urinary bladder was performed. Findings: The right kidney measures 10.5 cm in length and the left kidney measures 10.1 cm. There is no hydronephrosis or renal calculus identified. Renal cortical echogenicity is mildly increased. Smal l bilateral renal cysts present. The urinary bladder is moderately distended at the time of this exam. No intraluminal echoes are iden tified. No abnormal wall thickening is seen. Impression: Small bilateral renal cysts. Mildly echogenic kidneys suggest chronic medical renal disease. Reviewed, dictated and finalized at location . Impression: Small bilateral renal cysts. Mildly echogenic kidneys suggest chronic medical renal disease.
== END 2024-08-21 09:50 | disposition home or self-care (01) ==
LOC: MICIMG 09:49
PROVIDERS: PCP Nurse Practitioner; Visit Provider Nurse Practitioner
DX: R93.429 Abnormal radiologic findings on diagnostic imaging of unspecified kidney (principal); N28.1 Cyst of kidney, acquired
CPT/HCPCS: 76775

== ENCOUNTER 2024-11-03 12:17 | Outpatient (CLI) | payer BC, SELFPAY ==
--- OUTSIDE RECORDS SUMMARY | 2023-04-10 05:15 | XMS_ITS | Continuity of Care Document ---
Author Organization [facility] Address [address] [place] [address] Phone Care Team Providers Care Qa Test Analyst Name Role Phone Mitch Moon MD, MD Unavailable Unavail able Allergies, Adverse Reactions, Alerts Substance Reaction Status Criticality No Known Allergies Active No Inform ation Medications Medication Instructions Dosage Effective Dates (start - stop) Status Comments levothyroxine 25 mcg tablet take 1 tablet by oral route every day 25 MCG - Active Procedures Procedure Date Independent Medical Examination ANTHONY Pre Payment Pre Payment Advance Directives Directive Yes / No Effective Date File Name No Information Encounters Encounter Description Practice Location Reason(s) For Visit Diagnoses Date Provider Providers Copied on Encounter Independent Medical Examination ANTHONY [facility], [facility] [address], [id number], [place] tel:[phone] [facility] Right elbow (chief complaint) right shoulder and right wrist (chief complaint) Lateral epicondylitis, right elbowSprain of right rotator cuff capsule, sequelaCarpal tunnel syndrome, right upper limb 4 Sarai Meyer. [address] [place] [address], [place], [place], [id number], [place]. tel:[phone] [facility], [address] [place] [address], [id number], [place] tel:[phone] [facility] No Information 4 Sarai Meyer. [address], [place], [place], [id number], [place]. tel:[phone] [facility], [address], [place], [place], [id number], tel:[phone] [facility] No Information 2 Sarai Meyer. [address], [place], [place], [id number], [place]. tel:[phone] Family History Family Member Type Diagnosis Age At Onset Mother Problem (finding) Heart Disease Father Problem (finding) Cancer, unknown Mother Problem (finding) Osteoporosis Immunizations Vaccine Date Status Comments influenza, injectable, quadr ivalent, (3 years or older) administered Source: Other Provid er Payers Payer name Insurance type Covered constitution party ID Authorluis ma liyapierre(s) Ex[employer] [id number] Social History Type Description Quantity Date Captured Comments Alcohol Use Details Unknown Caffeine Use Details Unknown Tobacco Use Status No Information Smoking Status Never smoker Non-Smoking Tobacco Use Details : No Details Available : No Details Available Sex Female Vital Signs Date / Time: Height Weight BMI Pulse Rate Blood Pressure Temperature Respiratory Rate Body Surface Area Head Circumference Head Circ. Percentile Wt./Uriel. Percentile BMI percentile Pulse Ox Inhaled Ox 10:59 AM 63.00 in 90.718 kg (200.00 lbs) 35.4 3 kg/m maribell (2) Chief Complaint And Reason For Visit From encounter dated '04/10/2023 10:15'. Right elbow (chief complaint). Description: Ms. Yoselin Taylor presents to the office today on April 10, 2023. She is here for an Independent Medical Evaluation regarding her right upper extremity, including her right shoulder, right elbow, and right wrist. 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 Ms. 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 After that, she was out of work for a few years until she started working for [employer]. Ms. 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 She explains that [phone] customers will come through in a day. 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 Ms. Taylor reports that she started to develop pain in her right elbow in 2012. Sheexplains that at first, there was only some pain after busy days. However, the pain worsened. Ms. Taylor did see her primary care physician, Dr. Edenilson Zepeda MD with [facility], on December 04, 2012. Dr. Zepeda noted that Ms. Taylor had ...four month hx of progressive sx in the right shoulder, occasional pain in the arm, but she has really separate problems including extensor tendonitis of the right elbow, forearm. She has had previous carpal tu nnel surgery and some residual hand numbness. She's not had any acute carpal tunnel sx, does not have true radicular pain... Dr. Zepeda prescribed Diclofenac 75 mg bid, and he referred Ms. Taylor to physical therapy. Ms Taylor followed up with Dr. Zepeda on January 10, 2013. Dr. Zepeda documented that Ms. Taylor had significant improvement of her right shoulder symptoms,but the pain had not completely resolved. He also documented that ...her right extensor tendonitis of the elbow is not improved with anti- inflammatory and wearing the support strap..." Therefore, he referred her for 9 more physical therapy visits. Ms. Taylor followed up next withDr. Zepeda on February 11, 2013. Dr. Zepeda noted that Ms. Taylor now had ...resolution of the right shoulder rotator cuff tendonitis and is going to go on home maintenance exercises..." He also documented that ...the right elbow tendonitis though has not improved despite PT treatments.... It's felt that she should have orthopedic evaluation... Dr. Zepeda then referred Ms. Taylor to Dr. Dennis Christensen MD with [facility], [facility]. Ms. Michael anthony saw Dr. Christensen in his office on March 05, 2013. Dr. Christensen noted that Ms. Taylor complained of right elbow pain for six months. He examined her, and he described ...tender over the ECRB.She had just slight discomfort with resisted wrist extension... X-rays of the right elbow were described as unremarkable. Dr. Christensen referred Ms. Taylor for an MRI of the right elbow. The MRI was performed at [facility] on March 27, 2013. The MRI was i nterpreted as ...1. Some subcutaneous infiltration in the area marked as the region of thepatient's pain possibly related to callus formation and repetitive pressure effect in the area. However, the underlying ulnar nerve does not show any mass displacement or other signal abnormality within the cubital fossa. 2. Minimal biceps tendon insertional peritendinitis... Ms. Taylor was seen by Dr. Zepeda again on March 09, 2014. He documented ...she has recurrence of right rotator cuff tendonitis and right elbow tendonitis c the shoulder sx occurring somewhatacutely beginning four days ago. 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 Does not do heavy lifting, has not done anything else aggressive c the shoulderat home. A year ago she did respond to anti-inflammatories and PT, eventually had an injection in th e right elbow by Dr. Christensen.. Dr. Zepeda then prescribed Prednisone 40 mg daily for four days tapering over ten days. He also referred Ms. Taylor back to physical therapy for four weeks. Ms. Taylor followed up with Dr. Zepeda on April 06, 2014, and he noted that ...her recent shoulder and elbow sx have significantly improved. She did complete the Prednisone as prescribed...&am p;#34; There is another MRI report from [facility] dated June 17, 2014, ordered by Dr. Al Garcia MD. This MRI was interpreted as ...1. Moderate common extensor tendinopathy at lateral humeral epicondyle (lateral epicondylitis). No significant tear. Mild strain of extensor digitorum muscle. 2. Mild common flexor tendinopathy at medial humeral epicondyle (medial epicondylitis). No tear... Ms. Taylor recalls having a few cortisone injections given by Dr. Rawls. She reports that she also saw Dr. Fred Child, and she was given a cortisone injection from him as well. There are occupational therapy notes from [facility] ordered by Dr. Fred Child. The therapy notes extend from December 15, 2014 through February 25, 2015. The Initial Evaluation from the occupational therapist at [facility] notes that ...the patient related her right dominant elbow has bothered her for a few years but really became painful in February of this year due tothe new scanning system she must work with in the [employer]... She had injections in the elbow in June 2014 and her workload reduced because of reduced student population on campus her pain decreased. Now that the population is large again with school in session her pain is worse again.She is unable to get away from the elbow pain and is losing function... The Re-Evaluation note from [facility] dated February 25, 2015 indicated that Ms. Taylor attended occupational therapy twice per week for a total of 18 visits. The occupational therapist documented ...her employer has not modified her work station in an effort to remove the causative risk factor believed to be causing this injury... 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 Dr. Fred Child MD eventually took Ms. Taylor to surgery on June 09, 2015 at [facility] for her right elbow lateral epicondylitis. She was noted to have ...significant degeneration of the extensor carpi radialis brevis tendon origin with associated bony changes oflateral epicondyles... She underwent a right open debridement of lateral epicondyle and extensor wad with anconeus flap. Post-operatively, Ms. Taylor worked with occupational therapy againat [facility] in [place], [place] from 2015 through August 26, 2015. Ms. Taylor tells me that she had a lengthy course of occupational therapy after surgery. She returned to work first in the capacity of light duties and eventually regular duties. She reports that the surgery and treatment helped her right elbow, although she still has some pain. She reports that she has achy pain some days. She uses Voltaren gel every day. She also takes ibuprofen as needed. Ms. Taylor estimates that she was released from Dr. Child in August or September 2015. right shoulder and right wrist (chief complaint). Description: There is a Telephone Encounter note from Dr. Dianne Sparks MD with [facility] dated May 12, 2019. Dr. Sparks reported that Ms. Taylor' chief complaint was ...right shoulder is hurting during ROM and arm feels week with no strength, also wakes pt up at night hurting. Duration about 4 months. Pain level varies from 6-7 other days at a 3... Dr. Sparks recommended shoulder condit ioning exercises to do at home. Ms. Taylor was to follow up in 3-4 weeks. Ms. Taylor did followup with Dr. Sparks in the office on July 31, 2019. She reported a ...six month history of Rshoulder pain after having to move all of her furniture. Notes that there is significant pain with abduction against resistance. Feels as if the shoulder locks or catches". Impacting daily activities... Dr. Sparks suspected a rotator cuff tear, and she referred Ms. Taylor for physical therapy. She also referred her to Orthopedics at [facility]. Ms. Taylor was seen by Ziggy Ventura PA-C, working in collaboration with Dr. Enoc Albright MD with [facility]. Ms. Taylor was seen by Mr. Ventura on September 22, 2019. Mireya Ventura noted that Ms. Taylor presented with a ...10 month history of right dominant shoulder pain. She believes she may have injured her right shoulder when lifting a heavy object last fall. She recalls that she was in the process of moving from 1 house to another when she lifted a heavy object and felt a pain in the right shoulder. She has had recurring complaints ever since. She has noticed increased pain with any sort of lifting, painting, reaching. She has been able to get relief by resting the right upper extremity. Her pain is localized to the anterior lateral aspect of the right shoulder.... She has been treating with ibuprofen and 8 sessions of physical therapy over the last 6 or 8 weeks... Mr. Thomas examined Ms. Taylor, and there was some tenderness over thegreater tuberosity. There was also a positive lift-off test. The x-rays were interpreted as showing ...irregularity at the insertion rotator cuff and greater tuberosity with mild degenerative changes of the AC joint and glenohumeral joint... Mr. Thomas's impression was that Ms. Taylor had a right shoulder rotator cuff tendinitis, specifically the subscapularis with a possible tear. He arranged for a diagnostic ultrasound of the right shoulder to evaluate the rotatorcuff. Ms. Taylor was also to maintain range of motion exercises and strengthening exercises at home, and she was advised to ice the right shoulder for 15-20 minutes at the end of the day. She was also to avoid heavy lifting and repetitive activities at or above shoulder level. Ms. Taylor followed up with CARYN Aguilar on October 30, 2019. Mr. Centenofarheenthuy documented that ...overall she reports her symptoms are about the same... This time on examination, Ms. Taylor is described as having positive impingement signs to both Neers and Rose. She had pain but good strength with Niki's testing, and she had a negative lift-off test. The ultrasound was reviewed, and it was reported as showing ...a partial thickness tear of the undersurface of the supraspinatus with tendinopathy of the supraspinatus and infraspinatus. Mr. Thomas discussed treatment options with Ms. Taylor, and they decided to try a cortisone injection. Jacobomendez also encouraged Ms. Taylor to continue her home exercises, icing, and activity modification. Mr. Thomas noted that &a mp;#34;...if the injection does not provide adequate benefit she could consider returning to formaltherapy versus speaking with 1 of our surgeons regarding an arthroscopy procedure.. Ms. Taylor was to follow up in one month. Ms. Taylor tells me today that she still has a small tear in her rotator cuff. She relates her right shoulder pain to moving into a new house in 2019. As far as her right wrist is concerned, Ms. Taylor tells me today that she had a carpal tunnel release procedure in 2011. Otherwise, she does not report any significant wrist discomfort at this time. Her past medical history is otherwise positive for thyroid cancer. She had surgery to remove half of her thyroid in September 2022 and then the other half in December 2022. She also had radioactive iodine treatments for her thyroid cancer. Her past medical history also includes degenerative disc disease in her lower back. Ms. Taylor' past surgical history is positive for multiplec-sections, the thyroid surgeries, and the carpal tunnel surgery. She takes thyroid replacement medication, and she takes vitamins, including calcium, magnesium, and iron. As far as hobbies are concerned, Ms. Taylor tells me that she enjoys gardening and working in her yard. She does do digging and shoveling. She also paints, and she does other home projects. She presents for the ANTHONY today. Reason For Referral Reason For Referral No Information History Of Present Illness Encounter Date Complaint History Of Prese nt Illness right shoulder and right wrist T here is a Telephone Encounter note from Dr. Dianne Sparks MD with [facility] dated May 12, 2019. Dr. Sparks reported that Ms. Taylor' chief complaint was "...right shoulder is hurting during ROM and arm feels week with no strength, also wakes pt up at night hurting. Duration about 4 months. Pain level varies from 6-7 other days at a 3... Dr. Sparks recommended shoulder conditioning exercises to do at home. Ms. Taylor was to follow up in 3-4 weeks. Ms. Taylor did follow up with Dr. Sparks in the office on July 31, 2019. She reported a ...six month history of R shoulder pain after having to move all of her furniture. Notes that there is significant pain with abduction against resistance. Feels as if the shoulder locks or catches. Impacting daily activities... Dr. Sparks suspected a rotator cuff tear, and she referred Ms. Taylor for physical therapy. She also referred her to Orthopedics at [facility]. Ms. Taylor was seen by Ziggy Ventura PA-C, working in collaboration with Dr. Enoc Albright MD with [facility]. Ms. Taylor was seen by Mr. Ventura on September 22, 2019. Mr. Ventura noted that Ms. Tayolr presented with a ...10 month history of right dominant shoulder pain. She believes she may have injured her right shoulder when lifting a heavy object last fall. She recalls that she was in the process of moving from 1 house to another when she lifted a heavy object and felt a pain in the right shoulder. She has had recurring complaints ever since. She has noticed increased pain with any sort of lifting, painting, reaching. She has been able to get relief by resting the right upper extremity. Her pain is localized to the anterior lateral aspect of the right shoulder.... She has been treating with ibuprofen and 8 sessions of physical therapy over the last 6 or 8 weeks... Mr. Thomas examined Ms. Taylor, and there was some tenderness over the greater tuberosity. There was also a positive lift-off test. The x-rays were interpreted as showing ...irregularity at the insertion rotator cuff and greater tuberosity with mild degenerative changes of the AC joint and glenohumeral joint... Mr. Thomas's impression was that Ms. Taylor had a right shoulder rotator cuff tendinitis, specifically the subscapularis with a possible tear. He arranged for a diagnostic ultrasound of the right shoulder to evaluate the rotator cuff. Ms. Taylor was also to maintain range of motion exercises and strengthening exercises at home, and she was advised to ice the right shoulder for 15-20 minutes at the end of the day. She was also to avoid heavy lifting and repetitive activities at or above shoulder level. Ms. Taylor followed up with CARYN Aguilar on October 30, 2019. Mireya Jacobobossman documented that ...overall she reports her symptoms are about the same... This time on examination, Ms. Taylor is described as having positive impingement signs to both Neers and Rose. She had pain but good strength with Niki's testing, and she had a negative lift-off test. The ultrasound was reviewed, and it was reported as showing ...a partial thickness tear of the undersurface of the supraspinatus with tendinopathy of the supraspinatus and infraspinatus. Mireya William discussed treatment options with Ms. Taylor, and they decided to try a cortisone injection. Mr. Thomas also encouraged Ms. Taylor to continue her home exercises, icing, and activity modification. Mireya Jacobofarheennicole noted that ...if the injection does not provide adequate benefit she could consider returning to formal therapy versus speaking with 1 of our surgeons regarding an arthroscopy procedure.. Ms. Taylor was to follow up in one month. Ms. Taylor tells me today that she still has a small tear in her rotator cuff. She relates her right shoulder pain to moving into a new house in 2019. As far as her right wrist is concerned, Ms. Taylor tells me today that she had a carpal tunnel release procedure in 2011. Otherwise, she does not report any significant wrist discomfort at this time. Her past medical history is otherwise positive for thyroid cancer. She had surgery to remove half of her thyroid in September 2022 and then the other half in December 2022. She also had radioactive iodine treatments for her thyroid cancer. Her past medical history also includes degenerative disc disease in her lower back. Ms. Taylor' past surgical history is positive for multiple c-sections, the thyroid surgeries, and the carpal tunnel surgery. She takes thyroid replacement medication, and she takes vitamins, including calcium, magnesium, and iron. As far as hobbies are concerned, Ms. Taylor tells me that she enjoys gardening and working in her yard. She does do digging and shoveling. She also paints, and she does other home projects. She presents for the ANTHONY today. Right elbow Ms. Yoselin anthony presents to the office today on April 10, 2023. She is here for an Independent Medical Evaluation regarding her right upper extremity, including her right shoulder, right elbow, and right wrist. 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 Ms. 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 After that, she was out of work for a few years until she started working for [employer]. Ms. 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 She explains that [phone] customers will come through in a day. 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 Ms. Taylor reports that she started to develop pain in her right elbow in 2012. She explains that at first, there was only some pain after busy days. However, the pain worsened. Ms. Taylor did see her primary care physician, Dr. Edenilson Zepeda MD with [facility], on December 04, 2012. Dr. Zepeda noted that Ms. Taylor had ...four month hx of progressive sx in the right shoulder, occasional pain in the arm, but she has really separate problems including extensor tendonitis of the right elbow, forearm. She has had previous carpal tunnel surgery and some residual hand numbness. She's not had any acute carpal tunnel sx, does not have true radicular pain... Dr. Zepeda prescribed Diclofenac 75 mg bid, and he referred Ms. Taylor to physical therapy. Ms Taylor followed up with Dr. Zepeda on January 10, 2013. Dr. Zepeda documented that Ms. Taylor had significant improvement of her right shoulder symptoms, but the pain had not completely resolved. He also documented that ...her right extensor tendonitis of the elbow is not improved with anti-inflammatory and wearing the support strap... Therefore, he referred her for 9 more physical therapy visits. Ms. Taylor followed up next with Dr. Zepeda on February 11, 2013. Dr. Zepeda noted that Ms. Taylor now had ...resolution of the right shoulder rotator cuff tendonitis and is going to go on home maintenance exercises... He also documented that ...the right elbow tendonitis though has not improved despite PT treatments.... It's felt that she should have orthopedic evaluation... Dr. Zepeda then referred Ms. Taylor to Dr. Dennis Christensen MD with [facility]. Ms. Taylor saw Dr. Christensen in his office on March 05, 2013. Dr. Christensen noted that Ms. Taylor complained of right elbow pain for six months. He examined her, and he described ...tender over the ECRB. She had just slight discomfort with resisted wrist extension... X-rays of the right elbow were described as unremarkable. Dr. Christensen referred Ms. Taylor for an MRI of the right elbow. The MRI was performed at [facility] on March 27, 2013. The MRI was interpreted as ...1. Some subcutaneous infiltration in the area marked as the region of the patient's pain possibly related to callus formation and repetitive pressure effect in the area. However, the underlying ulnar nerve does not show any mass displacement or other signal abnormality within the cubital fossa. 2. Minimal biceps tendon insertional peritendinitis... Ms. Taylor was seen by Dr. Zepeda again on March 09, 2014. He documented ...she has recurrence of right rotator cuff tendonitis and right elbow tendonitis c the shoulder sx occurring somewhat acutely beginning four days ago. 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 Does not do heavy lifting, has not done anything else aggressive c the shoulder at home. A year ago she did respond to anti-inflammatories and PT, eventually had an injection in the right elbow by Dr. Christensen.. Dr. Zepeda then prescribed Prednisone 40 mg daily for four days tapering over ten days. He also referred Ms. Taylor back to physical therapy for four weeks. Ms. Taylor followed up with Dr. Zepeda on April 06, 2014, and he noted that ...her recent shoulder and elbow sx have significantly improved. She did complete the Prednisone as prescribed... There is another MRI report from [facility] dated June 17, 2014, ordered by Dr. Al Garcia MD. This MRI was interpreted as ...1. Moderate common extensor tendinopathy at lateral humeral epicondyle (lateral epicondylitis). No significant tear. Mild strain of extensor digitorum muscle. 2. Mild common flexor tendinopathy at medial humeral epicondyle (medial epicondylitis). No tear... Ms. Taylor recalls having a few cortisone injections given by Dr. Rawls. She reports that she also saw Dr. Fred Child, and she was given a cortisone injection from him as well. There are occupational therapy notes from [facility] ordered by Dr. Fred Child. The therapy notes extend from December 15, 2014 through February 25, 2015. The Initial Evaluation from the occupational therapist at [facility] notes that ...the patient related her right dominant elbow has bothered her for a few years but really became painful in February of this year due to the new scanning system she must work with in the [employer]... She had injections in the elbow in June 2014 and her workload reduced because of reduced student population on campus her pain decreased. Now that the population is large again with school in session her pain is worse again. She is unable to get away from the elbow pain and is losing function... The Re-Evaluation note from [facility] dated February 25, 2015 indicated that Ms. Taylor attended occupational therapy twice per week for a total of 18 visits. The occupational therapist documented ...her employer has not modified her work station in an effort to remove the causative risk factor believed to be causing this injury... 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 Dr. Fred Child MD eventually took Ms. Taylor to surgery on June 09, 2015 at [facility] for her right elbow lateral epicondylitis. 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 She underwent a right open debridement of lateral epicondyle and extensor wad with anconeus flap. Post-operatively, Ms. Taylor worked with occupational therapy again at [facility] in [place], [place] from 2015 through August 26, 2015. Ms. Taylor tells me that she had a lengthy course of occupational therapy after surgery. She returned to work first in the capacity of light duties and eventually regular duties. She reports that the surgery and treatment helped her right elbow, although she still has some pain. She reports that she has achy pain some days. She uses Voltaren gel every day. She also takes ibuprofen as needed. Ms. Taylor estimates that she was released from Dr. Child in August or September 2015. Functional Status Date Functional Assessmen t No Information Instructions Date Instruction Additional Infor hernandez I hope this is helpf ul in maintaining your files on Ms. Wendy Taylor. Please feel free to contact me for further questions or concerns.Sincerely, Mitch Moon MD Related to Lateral epicondylitis, right elbow Assessments Type Assessment Date assessment Lateral epicondylitis, right elb ow impression I performed a tristan history and physical examination for Ms. Yoselin Heredia, and I also reviewed the medical records provided, including a prescription for physical therapy for the low back from July 06, 1999, a physical therapy note from [facility] dated July 11, 1999, another PT prescription for the neck and upper back dated November 03, 2005, additional PT notes from [facility] from November 15, 2005 through October 18, 2009, primarily for low back pain, office notes from Dr. Edenilson Zepeda MD from September 21, 2010 at which time Ms. Taylor presented to [facility], emergency room notes from [facility] dated July 03, 2011 when Ms. Taylor presented for chest pain, additional office notes from Dr. Zepeda dated July 12, 2011 through December 09, 2011 in follow up for her atypical chest pain and for right leg swelling, office notes from Dr. Zepeda dated December 04, 2012 through February 11, 2013 relative to neck pain, right shoulder pain, and right elbow pain, physical therapy notes from [facility] dated December 10, 2012 through February 13, 2013 relative to a right cervical strain, right rotator cuff tendonitis, and right elbow extensor tendonitis, office notes from Dr. Dennis Christensen MD with [facility], [facility] dated March 05, 2013 for right elbow pain, an MRI right elbow report from [facility] dated March 27, 2013, additional office notes from Dr. Zepeda dated July 28, 2013 through March 09, 2024 with regards to lab findings suggesting pre-diabetes, labyrinthitis, and then a recurrence of right shoulder and elbow pain, a physical therapy prescription to [facility] for the right shoulder and right elbow dated March 09, 2014, physical therapy notes from [facility] from March 11, 2014 through April 23, 2014, office notes from Dr. Zepeda dated April 06, 2014 regarding headaches, an MRI right elbow report from [facility] dated June 17, 2014, occupational therapy notes from [facility] from December 15, 2014 through February 25, 2015 relative to right elbow tendonitis, the operative report from Dr. Fred Child MD at [facility] dated June 09, 2015, additional occupational therapy notes from [facility] 2015 through August 26, 2015 for therapy following right lateral elbow extensor release, additional office notes from Dr. Zepeda dated March 06, 2016 and April 13, 2016 for prolonged respiratory syndrome with sinus congestion, and then chills and fatigue, additional office notes from Dr. Zepeda from May 05, 2016 through January 02, 2017 for various ailments, including nonspecific mild chronic triaditis, a sleep study for obstructive sleep apnea, watery diarrhea, bilateral foot pain, conjunctivitis and sinusitis, and a general exam, office notes from Dr. Bernard Hill DPM dated November 09, 2016 and November 16, 2016 for bilateral Achilles tendonitis and plantar fasciitis, office notes from Dr. Dulce Villalta MD with [facility] dated February 14, 2017 regarding chills and a cough, office notes from Dr. Dianne Sparks MD with [facility] dated September 10, 2017 through July 31, 2019 regarding preventive exams, GERD, sleep apnea, left hand and finger infections, restless leg syndrome, and right shoulder pain, and office notes from Ziggy Ventura PA-C with [facility] dated September 22, 2019 and October 30, 2019 regarding right shoulder pain. I will offer my opinions to the best of my abilities within a reasonable degree of medical certainty. I will also answer the specific questions you provided. 1. List claimant's pre-existing injuries or health conditions The claimant's past medical history is positive for thyroid cancer. She had surgery to remove half of her thyroid in September 2022 and then the other half in December 2022. She also had radioactive iodine treatments for her thyroid cancer. The claimant reported that her past medical history also includes degenerative disc disease in her lower back. The medical records provided also document a history of obstructive sleep apnea, peripheral edema, pre-diabetes, triaditis, and GERD. The claimant's past surgical history is positive for right carpal tunnel release surgery, multiple c-sections, the thyroid surgeries, and the right elbow surgery. The claimant takes thyroid replacement medication, and she takes vitamins, including calcium, magnesium, and iron. 2. 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 After that, she was out of work for a few years until she started working for [employer]. 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 She explained that [phone] customers will come through in a day. 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 3. Describe claimant's social history.Smoking - never.Alcohol - never/rare.Recreational drugs - never.4. List claimant's past medical history.Again, the claimant's past medical history is positive for thyroid cancer. She had surgery to remove half of her thyroid in September 2022 and then the other half in December 2022. She also had radioactive iodine treatments for her thyroid cancer. The claimant reported that her past medical history also includes degenerative disc disease in her lower back. The medical records provided also document a history of obstructive sleep apnea, peripheral edema, pre-diabetes, triaditis, and GERD. The claimant's past surgical history is positive for right carpal tunnel release surgery, multiple c-sections, the thyroid surgeries, and the right elbow surgery. The claimant takes thyroid replacement medication, and she takes vitamins, including calcium, magnesium, and iron. 5. What is claimant's reported date of injury, accident description and immediate symptoms?Please see History of Present Illness above.6. Please provide a clinical history of this claim, including any medical tests and surgical procedures performed.Please see History of Present Illness above.7. What are the claimant's subjective complaints?The claimant's subjective complaints are right elbow pain, which she described as aching, dull, sharp, burning, and throbbing. She reported that her symptoms were helped with surgery. She does not describe right shoulder or right wrist pain at this time.8. What are your objective findings?Please see Physical Examination above. 9. What are your behavioral observations?The claimant was pleasant and cooperative throughout the encounter today. Her behavior was appropriate.10. What is your diagnosis of their current condition?My current diagnosis is right elbow lateral epicondylitis, treated effectively with surgery. She also has a partial-thickness right rotator cuff tear with rotator cuff tendinopathy diagnosed by ultrasound, but which seems to be asymptomatic at this time. and which I would consider to be [id number]. She also has a history of right carpal tunnel syndrome treated effectively with surgery back in 2011. She has no symptomatology relative to the wrist at this time.11. Is there a causal relationship between the claimant's current condition and reported accident? If not, what are they the result of?There is a causal relationship between the claimant's current condition of right elbow lateral epicondylitis and her work activities. However, the claimant's current right shoulder rotator cuff tear and tendinopathy are not related to work activities, but more likely related to moving heavy boxes while moving into her house in 2019. She has no significant right shoulder symptoms at this time. The claimant had right carpal tunnel release surgery in 2011. I would also consider the right carpal tunnel syndrome to be unrelated to the current accident, as the surgery in 2011 pre-dates the date of injury of December 04, 2012. The claimant is currently asymptomatic relative to her history of right carpal tunnel syndrome, and she has no right wrist symptoms at the present time.12. Has the medical treatment incurred to date been reasonable and necessary?Yes, the medical treatment incurred to date has been reasonable and necessary.13. Are the prescribed medications appropriate? If not, what are your recommendations?The claimant is not taking any prescribed medications relative to her right elbow, right shoulder, or right wrist. She does take [id number] Ibuprofen as needed, and she uses Voltaren topical gel yzrn-wjn-vlltiam. These are both appropriate. 14. Is additional medical treatment necessary? If yes, is it causally connected to the work accident? Please provide a detailed treatment plan including any diagnostic tests and surgical procedures.In my medical opinion, no additional medical treatment is necessary.15. What is your prognosis? My prognosis is good. 16. Has the claimant reached maximum medical improvement? If not, when? If so, when?Yes, the claimant reached maximum medical improvement on August 27, 2015, at the completion of occupational therapy after her right elbow surgery.17. What are the claimant's work capabilities/work status? Please provide in detail, including duration.The claimant is currently working in the capacity of regular duties. She has no work restrictions. She may continue to work in this capacity. assessment Sprain of right rotator cuff cap tre willard assessment Carpal tunnel syndrome, right up per limb Patient Care Teams Name Effective Dates (start - stop) Status Members No Information
--- NOTE | ~2024-11-03 | US_ITS ---
Clinical history:History of papillary cancer. Lymph node surveillance. Thyroidectomy. EXAM:Ultrasound soft tissue head and neck TECHNIQUE:Multiple static grayscale images and color Doppler images were obtained of the thyroid fossa. Comparisons:12/06/2023 FINDINGS: There are several nonenlarged lymph nodes throughout the soft tissues of the neck, the largest on the right measures 1.3 x 0.3 x 0.9 cm and the largest on the left measures 1.4 x 0.5 x 1.3 cm. The largest lymph node on the right demonstrates moderate cortical thickening with loss of the fatty hilum. The largest lymph node on the left demonstrates moderate cortical thickening. No residual or recurrent thyroid tissue identified. IMPRESSION: 1.There are several nonspecific nonenlarged lymph nodes throughout the soft tissues of the neck, the largest on the right measures 1.3 x 0.3 x 0.9 cm and the largest on the left measures 1.4 x 0.5 x 1.3 cm. A radioiodine whole body scan (I-131 whole body medicine scan) is recommended. 2. No residual or recurrent thyroid tissue identified. Attention on follow-up imaging. Reviewed, dictated and finalized at location Q. IMPRESSION: 1.There are several nonspecific nonenlarged lymph nodes throughout the soft tis sues of the neck, the largest on the right measures 1.3 x 0.3 x 0.9 cm and the largest on the left measures 1.4 x 0.5 x 1.3 cm. A radioiodine whole body scan (I-131 whole body medicine scan) is recommended. 2. No residual or recurrent thyroid tissue identified. Attention on follow-up i kenneth.
--- OUTSIDE RECORDS SUMMARY | 2024-11-03 12:20 | XMS_ITS | Encounter Summary ---
Author Organization [facility] Healthcare Address [address] [place] [address] Care Team Providers Care Boat Operator Name Role Phone Sergio Bush Primary Care Provider Mariusz Carr MD Unavailable [phone] Fernando Hernández MD PhD Unavailable [phone] Miguel Larkin MD Unavailable [phone] Nas Mcdonnell DO Primary Care Provider [phone] Encounter Details Date Type Department Care Team (Late st Contact Info) Description 03/09/2023 Telephone [facility] Advanced Medicine Radiation Oncology [address] [facility] [place] [address] Alexander Rao, RN Social History Tobacco Use Types Packs/Day Years Used Date Smoking Tobacco: Never Smokeless Tobacco: Never Comments Unknown Sex and Gender Information Value Date Recorded Sex Assigned at Not on file Legal Sex Female 10:11 PM [employer] Gender Identity Not on file Sexual Orientation Not on file documented as of this encounter Plan of Treatment Not on file documented as of this encounter Visit Diagnoses Not on filedocumented in this encounter Care Teams Boat Operator Relationship Specialty Start Date End Date Sergio Bush PA [address] [facility] [address] [place] [address] PCP - General Physician Activities Attendant 09/17/19 04/21/24 Nas Mcdonnell DO [address] [facility] [facility], [address] [place] [address] PCP - General Internal Medicine 04/22/24 Mariusz Carr MD [address] [facility] [address] [place], [place] [id number] Consulting Physician Endocrinology Diabetes & Metabolism 02/09/23 Fernando Hernández MD PhD [address] [facility] [address] [place], [place] [id number] Radiation Oncologist Radiation Oncology 03/20/23 Miguel Larkin MD [address], [address] [place] [address] Referring Physician Otolaryngology 03/20/23 documented as of this encounter
--- OUTSIDE RECORDS SUMMARY | 2024-11-03 12:20 | XMS_ITS | Clinical Summary ---
Author Organization [facility] [address] [facility] Address [address] [place] [address] Care Team Providers Care Meat Puller Name Role Phone Dwayne Chandler DO Primary Care Provider [phone] Allergies Active Allergy Reactions Criticality Noted Date [...] Encounters Date Type Department Care Team Description 09/09/2024 External Device Data STL ABSTRACTION Provider, Abstract 08/09/2024 8:15 AM CDT - 08/09/2024 11:59 PM CDT Hospital Encounter [facility] Imaging Services [facility] [address] [address] [place] [address] Clarence Soliz ANP Discharge Disposition: Home or Self Care from Last 3 Months Family History Medical [...] Comments Blood Pressure 126/82 03/19/2024 8:57 AM PHARMACEUTICAL SALES Pulse - - Temperature 37 C (98.6 F) 01/27/2020 9:49 AM PHARMACEUTICAL SALES Respiratory Rate - - Oxygen Saturation - - Inhaled Oxygen Concentration - - Weight 88.8 kg (195 lb 12.8 oz) 03/19/2024 8:57 AM PHARMACEUTICAL SALES Height 162.6 cm (5' 4) 03/19/2024 8:57 AM PHARMACEUTICAL SALES Body Mass Index 33.61 03/19/2024 8:57 AM PHARMACEUTICAL SALES Plan of Treatment Upcoming Encounters Date Type Department Care Team (Late st Contact Info) Description 03/26/2025 9:00 AM PHARMACEUTICAL SALES Office Visit [facility] - [id number] [place] [phone] Caprice Saldivar, [address] [facility] [address] [place], [place] [id number] Health Maintenance Due Date Last Done Comments Pre-Diabetes and Diabetes Screening 1965 COLORECTAL SCREENING 06/28/2008 Colorectal Cancer Screening 06/28/2008 FIT-DNA Q 3 years 06/28/2008 FIT/FOBT Q 1 year 06/28/2008 Flex Sig/CT Colonography Q 5 years 06/28/2008 ZOSTER VACCINE (1 of 2) 06/28/2013 DTAP/TDAP/TD VACCINES (2 - T d or Tdap) 09/21/2020 09/21/2010 BREAST CANCER SCREENING 02/02/2021 02/03/20 20, 01/07/2019, 09/07/2015, Additional history exists INFLUENZA VACCINE (#1) 2024 , 11/24/2019, 11/22/2018, Additional history exists PAP SMEAR 02/08/2025 02/08/2022, 08/05, 08/16/2017 (Previously completed) CERVICAL CANCER SCREENING 02/08/2027 HPV/Cotest (21-29) 02/08/2027 02/08/2022, 08/19/2018 HPV/Cotest (30-65) 02/08/2027 02/08/2022, 08/19/2018 RSV VACCINE (60+ or ) (1 - 1-dose 75+ series) 06/28/2038 Procedures Procedure Name Priority Date/Time Associated Diagnosis Comments MRI LUMBAR WO CONTRAST Routine 08/09/2024 9:21 AM CDT Low back pain, unspecified CERV/VAG CYTO AGE BASED SCREEN PAP Routine 02/08/2022 9:37 AM PHARMACEUTICAL SALES Well woman exam with routine gynecological exam MAMMO SCREEN BILAT W OR WO CAD Routine 02/03/2020 Breast cancer screening by mammogram from Last 3 Months or Most Recently Relevant to Health Maintenance Results * MRI LUMBAR WO CONTRAST (08/09/2024 9:21 AM CDT) Anatomical Region Laterality Modality Spine Magnetic Resonan ce 08/09/2024 9:22 AM CDT Impressions 08/09/2024 9:32 AM CDT IMPRESSION: Multilevel degenerative changes of the lumbar spine superimposed on scoliosis involving neuroforaminal narrowing as described. Left posterolateral disc osteophyte complex at L5-S1, impinging on the left L5 nerve root. Narrative 08/09/2024 9:32 AM CDT EXAM: MRI LUMBAR WO CONTRAST STUDY DATE: 08/09/2024 9:21 AM CLINICAL INDICATION: Low back pain COMPARISON: None CONTRAST: None PROCEDURE: Axial and sagittal MR images of the lumbar spine are obtained without intravenous contrast. FINDINGS: The lumbar vertebral bodies demonstrate satisfactory height. There is left curvature of the lumbar spine. There is 3 mm retrolisthesis of L2 on L3. There is 2 mm retrolisthesis of L5 on S1. No acute fracture. There is T2 hyperintense Modic type I reactive marrow edema in the right endplate of L2-L3. There are degenerative changes of the lumbar spine with decrease in disc height and disc desiccation from L1-L2 to L5-S1. At T12-L1, there is no significant posterior disc osteophyte complex, spinal canal stenosis or neuroforaminal narrowing. At L1-L2, there is no significant posterior disc osteophyte complex, spinal canal stenosis or neuroforaminal narrowing. At L2-L3, there is mild diffuse posterior and lateral disc bulge. There is diffuse right lateral disc osteophyte complex. There is no significant spinal canal stenosis. There is mild right neuroforaminal narrowing. There is no significant left neural foramina narrowing. At L3-L4, there is minimal diffuse posterior disc bulge. There is no significant spinal canal stenosis. There is mild bilateral neural foraminal narrowing. There are mild bilateral facet hypertrophic changes. At L4-L5, there is diffuse posterior and lateral disc bulge. There is bilateral facet hypertrophic changes. The areas no significant spinal canal stenosis. There is moderate bilateral neuroforaminal narrowing. At L5-S1, there is a left posterolateral disc osteophyte complex impinging on the left L5 nerve root. There are moderate bilateral facet hypertrophic changes. There is no significant spinal canal stenosis. There is moderate left and mild right neuroforaminal narrowing. The conus medullaris terminates at L1-L2. There are T2 hyperintense lesions in the right kidney, not fully evaluated on the current study and commonly represent cysts. Procedure Note Rebeca Zimmerman MD - 08/09/2024 EXAM: MRI LUMBAR WO CONTRAST STUDY DATE: 08/09/2024 9:21 AM CLINICAL INDICATION: Low back pain COMPARISON: None CONTRAST: None PROCEDURE: Axial and sagittal MR images of the lumbar spine are obtained without intravenous contrast. FINDINGS: The lumbar vertebral bodies demonstrate satisfactory height. There is left curvature of the lumbar spine. There is 3 mm retrolisthesis of L2 on L3. There is 2 mm retrolisthesis of L5 on S1. No acute fracture. There is T2 hyperintense Modic type I reactive marrow edema in the right endplate of L2-L3. There are degenerative changes of the lumbar spine with decrease in disc height and disc desiccation from L1-L2 to L5-S1. At T12-L1, there is no significant posterior disc osteophyte complex, spinal canal stenosis or neuroforaminal narrowing. At L1-L2, there is no significant posterior disc osteophyte complex, spinal canal stenosis or neuroforaminal narrowing. At L2-L3, there is mild diffuse posterior and lateral disc bulge. There is diffuse right lateral disc osteophyte complex. There is no significant spinal canal stenosis. There is mild right neuroforaminal narrowing. There is no significant left neural foramina narrowing. At L3-L4, there is minimal diffuse posterior disc bulge. There is no significant spinal canal stenosis. There is mild bilateral neural foraminal narrowing. There are mild bilateral facet hypertrophic changes. At L4-L5, there is diffuse posterior and lateral disc bulge. There is bilateral facet hypertrophic changes. The areas no significant spinal canal stenosis. There is moderate bilateral neuroforaminal narrowing. At L5-S1, there is a left posterolateral disc osteophyte complex impinging on the left L5 nerve root. There are moderate bilateral facet hypertrophic changes. There is no significant spinal canal stenosis. There is moderate left and mild right neuroforaminal narrowing. The conus medullaris terminates at L1-L2. There are T2 hyperintense lesions in the right kidney, not fully evaluated on the current study and commonly represent cysts. IMPRESSION: Multilevel degenerative changes of the lumbar spine superimposed on scoliosis involving neuroforaminal narrowing as described. Left posterolateral disc osteophyte complex at L5-S1, impinging on the left L5 nerve root. Clarence Soliz [facility] MR ORDERABLES Final Result * CERV/VAG CYTO AGE BASED SCREEN PAP (02/08/2022 9:37 AM PHARMACEUTICAL SALES) COMMENT (PAP): [facility] Comment: This order for age-based cervical cancer and STI screening follows ACOG guidelines(PB 168, 140, TYI339). See individual assays for performing site location. CLINICAL INFORMATION [facility] Comment:None given LAST MENSTRUAL PERIOD [facility] [place] [facility] Comment:NONE GIVEN PREV PAP: [facility] [place] [facility] Comment:NONE GIVEN PREV BX: [facility] [place] [facility] Comment:NONE GIVEN SOURCE [facility] [place] Comment:Endocervix ADEQUACY: [facility] [place] [facility] Comment: Satisfactory for evaluation. Endocervical/transformation zone component present. Age and/or menstrual status not provided PAP INTERP [facility] [place] [facility] Comment:Negative for intraep ithelial lesion or malignancy. COMMENT (PAP TEST) [facility] [place] Comment: This Pap test has been evaluated with computer assisted technology. RUBBER TUBING BACKER: [facility] [place] Comment: MMW, CT(ASCP) CT screening location: [place] [address] [place] [address] EXPLANATORY NOTE [facility] [facility] [place] Comment: EXPLANATORY NOTE: The Pap is a [...] information. HPV E6/E7 Not Detected Not Detected [facility] Comment: Methodology: Class C Driver-Mediated Amplification This assay detects E6/E7 viral messenger RNA (mRNA) from 14 high-risk HPV types (16,18,31,33,35,39,45,51,52,56,58,59,66,68). Cervical sources are required for HPV testing. If a vaginal source from a patient who has had a total hysterectomy with removal of cervix was submitted, please contact the testing laboratory for alternative testing options. For additional information, please refer to http://education.Pureshield/faq/HHF877f2 (This link if provided for information/ educational purposes only.) Test Performed at: [facility] [address] [place] [address] Mitch Silva D.O., MPH SL Genital SWAB OF ENDOCERVIX / Unknown 02/08/2022 9:37 AM PHARMACEUTICAL SALES 02/08/2022 11:08 PM PHARMACEUTICAL SALES Caprice Saldivar DO PATHOLOGY/CYTOLOGY ORDERABL ES Final Result [facility] [phone] [facility] [address] [place] [address] * MAMMO SCREEN BILAT W OR WO CAD (02/03/2020) Anatomical Region Laterality Modality Breast Bilateral Mammography us Caprice Saldivar DO MAMMO ORDERABLES Final Resu lt from Last 3 Months or Most Recently Relevant to Health Maintenance Insurance [facility] [employer] Care Teams Meat Puller Relationship Specialty Start Date End Date Dwayne Chandler DO [address] [facility] [address] [place] [address] PCP - General Internal Medicine 01/27/20
--- OUTSIDE RECORDS SUMMARY | 2024-11-03 12:20 | XMS_ITS | Clinical Summary ---
Author Organization [facility] HealthCare Care Team Providers Care Collator Name Role Phone Mariusz Carr MD Unavailable [phone] Fernando Hernández MD PhD Unavailable [phone] Miguel Larkin MD Unavailable [phone] Nas Mcdonnell DO Primary Care Provider [phone] Allergies Active Allergy Reactions Criticality Noted Date Comments Hydrocodone-Acetaminophen Vomiting Low 04/12/2020 Medications ferrous sulfate 325 mg (65 mg of elemental iron) tablet TK 1 T PO QD 0 Active omeprazole (PriLOSEC) 20 mg capsule Take 1 capsule (20 mg total) by mouth daily Active D3-2000 50 mcg (2,000 unit) capsule Take 1 capsule (2,000 Units total) by mouth daily Active diclofenac sodium (VOLTAREN) 1 % gel Apply topically Active Synthroid 150 mcg tablet Take 1 tablet (150 mcg total) by mouth daily Active magnesium oxide (MAG-OX) 415 mg (250 mg elemental) tablet Take 250 mg by mouth daily Active meloxicam (MOBIC) 7.5 mg tablet Take 1 tablet (7.5 mg total) by mouth daily 90 tablet 5 04/23/19 26 Active Active Problems Problem Noted Date Diagnosed Date Thyroid cancer 10/13/2022 Cancer Staging:Pathologic stage from 09/12/2022:Stage I(pT1a, pNX, cM0, Age at diagnosis: >= 55 years) - Signed by Jennie Zuleta PA on 03/20/2023 RLS (restless legs syndrome) 04/12/2020 Assessment & Plan (04/12/2020 9:38 AM MEDICAL INSURANCE CODER): Due to the patient stating that her restless legs are still bothering her at night, I have increased her Requip to 1 mg p.o. at bedtime. The patient will also continue with iron 325 mg daily as tolerated. IRISH (obstructive sleep apnea) 04/12/2020 Assessment & Plan (04/12/2020 9:37 AM MEDICAL INSURANCE CODER): The patient will continue with CPAP therapy at 9 cm water pressure to treat obstructive sleep apnea. Patient denied need for supplies. The DME company is [employer]. The patient is benefitting from CPAP therapy. 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); Back pain with sciatica 08/25/2024 8:36 AM CDT - 08/25/2024 11:59 PM CDT Hospital Encounter [facility] [address] [place] [address] [address] [place] [phone] Low back pain, non-specific Discharge Disposition: Discharge to home or self care 08/22/2024 1:58 PM CDT - 08/22/2024 11:59 PM CDT Hospital Encounter [facility] [address] [place] [address] Discharge Disposition: Discharge to home or self care 08/22/2024 Orders Only [facility] [address] [place] [address] [address] [place] [id number] Ivania Tolbert, ЕКАТЕРИНА Low back pain, non-specific (Primary Dx) 08/13/2024 Telephone [facility] [address] [place] [address] Radha Cabrera from Last 3 Months Immunizations Immunization Administration [...] Never Smokeless Tobacco: Never Tobacco Cessation:Counseling Given: No Comments Unknown Sex and Gender Information Value Date Recorded Sex Assigned at Not on file Legal Sex Female 10:11 PM MEDICAL INSURANCE CODER Gender Identity Not on file Sexual Orientation Not on file Obstetrics History Last Filed Vital Signs Vital Sign Reading Time Taken Comments Blood Pressure 124/82 04/12/2020 9:18 AM MEDICAL INSURANCE CODER Pulse 77 04/12/2020 9:18 AM MEDICAL INSURANCE CODER Temperature 36.7 C (98 F) 04/12/2020 9:18 AM MEDICAL INSURANCE CODER Respiratory Rate - - Oxygen Saturation 99% 04/12/2020 9:18 AM MEDICAL INSURANCE CODER Inhaled Oxygen Concentration - - Weight 84.8 kg (187 lb) 08/25/2024 9:27 AM CDT Height 162.6 cm (5' 4) 08/25/2024 9:27 AM CDT Body Mass Index 32.1 08/25/2024 9:27 AM CDT Plan of Treatment Health Maintenance Due Date Last Done Comments Cervical Cancer Screening 1965 Colon Cancer Screening-Colonoscopy 1965 Depression Screening 1965 Hepatitis C Screening 1965 Hepatitis B Screening 06/28/1981 Regular Well Visit/Exam 18-64 06/28/1981 Zoster Vaccine (1 of 2) 06/28/2013 DTaP/Tdap/Td Vaccine (2 - Td or Tdap) 09/21/2020 09/21/2010 Breast Cancer Screening-Mammogram 02/02/2021 02/03/2020, 01/07/2019 Influenza Vaccine (#1) 2024 3, 11/24/2019, 11/22/2018, Additional history exists Pneumococcal vaccine <65 Aged Out No longer eligible based on patient's age to complete this topic Procedures Procedure Name Priority Date/Time Associated Diagnosis Comments XR SCOLIOSIS 6 OR MORE VIEWS Schedule Routine, Read Routine (OP Routine) 08/25/2024 8:59 AM CDT Low back pain, non-specific NEURO MR OUTSIDE REFERENCE Routine 08/22/2024 1:58 PM CDT from Last 3 Months Results * XR Scoliosis 6 or More Views (08/25/2024 8:59 AM CDT) Anatomical Region Laterality Modality Spine N/A Computed Radiogr aphy 08/25/2024 12:4 7 PM CDT Impressions 08/25/2024 3:11 PM CDT 1. Mild thoracolumbar rotatory scoliosis with moderate to severe lumbar facet osteoarthritis and degenerative disc disease. Dictated by: Jose Luis Lopez MD The radiology attending physician has personally reviewed this study, and had reviewed and/or edited this written report and agrees with it. Electronically signed by: Johnie Sparks M.D. Narrative 08/25/2024 3:11 PM CDT EXAMINATION: XR SCOLIOSIS 6 OR MORE VIEWS HISTORY: Lumbar pain COMPARISON: 04/14/2024 FINDINGS: Mild thoracic dextroscoliosis centered at T12 and lumbar levoscoliosis centered at L3. There is no postural imbalance. No pelvic obliquity. Multilevel degenerative disc disease is greatest and moderate at L2-L3. No acute compression deformity. Procedure Note Johnie Sparks MD - 08/25/2024 EXAMINATION: XR SCOLIOSIS 6 OR MORE VIEWS HISTORY: Lumbar pain COMPARISON: 04/14/2024 FINDINGS: Mild thoracic dextroscoliosis centered at T12 and lumbar levoscoliosis centered at L3. There is no postural imbalance. No pelvic obliquity. Multilevel degenerative disc disease is greatest and moderate at L2-L3. No acute compression deformity. IMPRESSION: 1. Mild thoracolumbar rotatory scoliosis with moderate to severe lumbar facet osteoarthritis and degenerative disc disease. Dictated by: Jose Luis Lopez MD The radiology attending physician has personally reviewed this study, and had reviewed and/or edited this written report and agrees with it. Electronically signed by: Johnie Sparks M.D. us Ivania Tolbert OPERATOR IMG XR PROCEDURES Final Result * Neuro MR Outside Reference (08/22/2024 1:58 PM CDT) Impressions [facility] - 08/22/2024 1:58 PM CDT These images are for Reference purposes only and have not been reviewed by [facility] Radiology. There will be no report generated by a [facility] Radiologist. Narrative [facility] - 08/22/2024 1:58 PM CDT EXAMINATION: Images For Reference Purposes Only us Ivania Tolbert NP IMG MRI PROCEDURES Final Result Performing Organization Address City/State/[facility] Co de Phone Number [facility] from Last 3 Months Insurance [facility] CHOICE PLUS [facility] HMO/PPO Address: [facility] [address] [place] [address] [place] [address] CHOICE PLUS [facility] HMO/PPO Address: [address] [address] [place] [address] Care Teams Collator Relationship Specialty Start Date End Date Nas Mcdonnell DO [address] [facility], [address] [place] [address] PCP - General Internal Medicine 04/22/24 Mariusz Carr MD Consulting Physician Endocrinology Diabetes & Metabolism 02/09/23 Fernando Hernández MD PhD Radiation Oncologist Radiation Oncology 03/20/23 Miguel Larkin MD [address] [facility], [address] [place] [address] Referring Physician Otolaryngology 03/20/23
--- OUTSIDE RECORDS SUMMARY | 2024-11-03 12:20 | XMS_ITS ---
Author Organization [facility] HealthCare Care Team Providers Care Copper Etcher Name Role Phone Mariusz Carr MD Unavailable [phone] Fernando Hernández MD PhD Unavailable [phone] Miguel Larkin MD Unavailable [phone] Nas Mcdonnell DO Primary Care Provider [phone] Active Problems Problem Noted Date Diagnosed Date Thyroid cancer 10/13/2022 Cancer Staging:Pathologic stage from 09/12/2022:Stage I(pT1a, pNX, cM0, Age at diagnosis: >= 55 years) - Signed by Jennie Zuleta PA on 03/20/2023 RLS (restless legs syndrome) 04/12/2020 Assessment & Plan (04/12/2020 9:38 AM VENTURE CAPITALIST): Due to the patient stating that her restless legs are still bothering her at night, I have increased her Requip to 1 mg p.o. at bedtime. The patient will also continue with iron 325 mg daily as tolerated. IRISH (obstructive sleep apnea) 04/12/2020 Assessment & Plan (04/12/2020 9:37 AM VENTURE CAPITALIST): The patient will continue with CPAP therapy at 9 cm water pressure to treat obstructive sleep apnea. Patient denied need for supplies. The DME company is [email or web address]. The patient is benefitting from CPAP therapy. [...]
--- OUTSIDE RECORDS SUMMARY | 2024-11-03 12:20 | XMS_ITS | Clinical Summary ---
Author Organization [facility] Address [address] [place] [id number] Care Team Providers Care Innovation Manager Name Role Phone Clarence Soliz SOCIAL SECRETARY Primary Care Provider [phone] Allergies Active Allergy Reactions Criticality Noted Date Comments Oxycodone Nausea Only Medium 06/07/2024 Medications apixaban (ELIQUIS) 5 MG tablet starter pack Take 2 tablets (10 mg total) by mouth 2 (two) times daily for 7 days, then take 1 tablet (5 mg total) by mouth 2 (two) times daily. 74 tablet 06/07/2024 Active Encounters Date Type Department Care Team Description 09/26/2024 4:30 PM CDT - 09/26/2024 11:59 PM [facility] Hospital Encounter [facility] [address] Clarence Soliz NP Discharge Disposition: Home or Self Care (Routine Discharge) 09/26/2024 Travel 09/01/2024 9:00 AM CDT - 09/01/2024 11:59 PM [facility] Hospital Encounter [facility] [address] Enoc Hager MD Discharge Disposition: Home or Self Care (Routine Discharge) 09/01/2024 Travel from Last 3 Months Social History Tobacco Use Types Packs/Day Years Used Date Smoking Tobacco: Never Smokeless Tobacco: Never Tobacco Cessation:Counseling Given: Not Answered Alcohol Use Standard Drinks/Week Comments Never 0 (1 standard drink = 0.6 oz pur e alcohol) Comments No Sex and Gender Information Value Date Recorded Sex Assigned at Not on file Legal Sex Female 10:48 AM CDT Gender Identity Not on file Sexual Orientation Not on file Last Filed Vital Signs Vital Sign Reading Time Taken Comments Blood Pressure 138/84 06/07/2024 2:05 PM CDT Pulse 90 06/07/2024 10:49 AM CDT Temperature 36.6 C (97.9 F) 06/07/2024 2:05 PM CDT Respiratory Rate 16 06/07/2024 2:05 PM CDT Oxygen Saturation 97% 06/07/2024 2:05 PM CDT Inhaled Oxygen Concentration - - Weight 86.5 kg (190 lb 11.2 oz) 025 10:49 AM CDT Height 162.6 cm (5' 4) 06/07/2024 10:4 9 AM CDT Body Mass Index 32.73 06/07/2024 10:49 AM CDT Plan of Treatment Health Maintenance Due Date Last Done Comments Cervical Cancer Screening Pa p Smear (Age 30 to 64) Every 3 Years 1965 Colorectal Cancer Screening Colonoscopy (10 Years) 1963 Annual Physical 06/28/1966 Hepatitis C 06/28/1981 Cervical Cancer Screening Pa p with HPV Testing (Age 30 to 64) Every 5 Years 06/28/1993 Cervical Cancer Screening wi th HPV 06/28/1993 Pneumococcal Vaccine: 50+ Years (1 of 1 - PCV) 06/28/2013 Zoster Vaccines (1 of 2) 06/28/2013 DTaP, Tdap and Td Vaccines ( 2 - Td or Tdap) 09/21/2020 09/21/2010 Mammogram Screening 02/02/2022 02/03/2020, 01/07/2019 RSV Immunization or 60+ Years (1 - Risk 60-74 years 1-dose series) 2023 COVID-19 Vaccine ( - 2023-2 5 season) 2024 Meningococcal B Vaccine Aged Out No l onger eligible based on patient's age to complete this topic Meningococcal Vaccine Aged Out No jani roger eligible based on patient's age to complete this topic RSV Immunizations Under 20 Months Aged Out No longer eligible b ased on patient's age to complete this topic Procedures Procedure Name Priority Date/Time Associated Diagnosis Comments USV CHIDI DUPLEX LOW EXT LUZ MARIA STAT 09/26/2024 4:56 PM CDT Deep vein thrombosis of left lower limb (CMS/HCC HHS/HCC) USV CHIDI DUPLEX LOW EXT RT Routine 09/01/2024 9:27 AM CDT Deep venous thrombosis (CMS/HCC HHS/HCC) from Last 3 Months Results * USV CHIDI DUPLEX LOW EXT LUZ MARIA (09/26/2024 4:56 PM CDT) Anatomical Region Laterality Modality Extremity Vascular Ultraso und 09/26/2024 4:39 PM CDT Narrative 09/29/2024 10:01 PM CDT VENOUS DUPLEX IMAGING BILATERAL LOWER EXTREMITY VASCULAR LAB Pat.Name: DARRICK SOODRama Callaway Pat.ID: [id number] .Date: 09/26/2024 Refer.MD: [id number], Madan paul Exam Time: 4:39:00 PM Study Type:KENNETH VS Venous Duplex Legs LUZ MARIA Age: 5 1965,59Y Sex: F Sonogrphr: Clyde Johnson, JOHANNA, RVT History / Clinical:LLE pain and swelling PMH, right peroneal vein DVT on 06-07-24, f/u DVT Procedures: Lacy scale, Color Doppler imaging, Doppler Spectral Analysis Race: W ++++++++++++++++++++++++++++++++++++ SUMMARY: ++++++++++++++++++++++++++++++++++++ Right leg: There are NO apparent, deep or superficial vein, ACUTE character venous filling defects visualized in the common femoral, proximal deep femoral, femoral, popliteal, gastrocnemius, posterior tibial, peroneal, great saphenousveins. Resting venous flow is normal phasic proximally. Left leg: There are NO apparent, deep or superficial vein, ACUTE character venous filling defects visualized in the common femoral, proximal deep femoral, femoral, popliteal, gastrocnemius, posterior tibial, peronealveins. Resting venous flow is normal phasic proximally. CONCLUSION: Normal study bilateral lower extremity, with no evidence of acute deep or superficial vein thrombosis. <Electronic Signature> 09/29/2024 10:01 PM Tom Stewart M.D. Procedure Note Tom Stewart MD - 09/29/2024 VENOUS DUPLEX IMAGING BILATERAL LOWER EXTREMITY VASCULAR LAB Pat.Name: DENI SOOD Pat.ID: [id number] .Date: 09/26/2024 Refer.: [id number], Madan paul Exam Time: 4:39:00 PM Study Type:KENNETH VS Venous Duplex Legs LUZ MARIA Age: 5 1965,59Y Sex: F Sonogrphr: Clyde Johnson RDMS, RVT History / Clinical:LLE pain and swelling PMH, right peroneal vein DVT on 06-07-24, f/u DVT Procedures: Lacy scale, Color Doppler imaging, Doppler Spectral Analysis Race: W ++++++++++++++++++++++++++++++++++++ SUMMARY: ++++++++++++++++++++++++++++++++++++ Right leg: There are NO apparent, deep or superficial vein, ACUTE character venous filling defects visualized in the common femoral, proximal deep femoral, femoral, popliteal, gastrocnemius, posterior tibial, peroneal, great saphenousveins. Resting venous flow is normal phasic proximally. Left leg: There are NO apparent, deep or superficial vein, ACUTE character venous filling defects visualized in the common femoral, proximal deep femoral, femoral, popliteal, gastrocnemius, posterior tibial, peronealveins. Resting venous flow is normal phasic proximally. CONCLUSION: Normal study bilateral lower extremity, with no evidence of acute deep or superficial vein thrombosis. <Electronic Signature> 09/29/2024 10:01 PM Tom Stewart M.D. Enoc Hager MD VAS Final Result * USV CHIDI DUPLEX LOW EXT RT (09/01/2024 9:27 AM CDT) Anatomical Region Laterality Modality Extremity Vascular Ultraso und 09/01/2024 9:09 AM CDT Narrative 09/03/2024 7:48 PM CDT VENOUS DUPLEX IMAGING RIGHT LOWER EXTREMITY VASCULAR LAB Pat.Name: DENI SOOD Pat.ID: [id number] .Date: 09/01/2024 Refer.MD: [id number], Kecia Pat Eddie Exam Time: 9:09:00 AM Study Type:KENNETH VS Venous Duplex Leg Rt Age: 5 1965,59Y Sex: F Sonogrphr: Clyed Johnson RDMS, RVT History / Clinical:right peroneal vein DVT on 06-07-24, f/u DVT Procedures: Lacy scale, Color Doppler imaging, Doppler Spectral Analysis Race: W ++++++++++++++++++++++++++++++++++++ SUMMARY: ++++++++++++++++++++++++++++++++++++ Right leg: There are NO apparent, deep or superficial vein, ACUTE character venous filling defects visualized in the common femoral, femoral, popliteal, deep calf or proximal saphenous veins. Resting venous flow is normal phasic proximally. Left leg LIMITED: There are NO apparent, deep vein, ACUTE character venous filling defects visualized in the common femoral vein. Resting venous flow is normal phasic at the common femoral. CONCLUSION: Normal study right lower extremity and contralateral left common femoral vein, with no evidence of acute deep or superficial vein thrombosis. <Electronic Signature> 09/03/2024 07:48 PM Tom Stewart M.D. Procedure Note Tom Stewart MD - 09/03/2024 VENOUS DUPLEX IMAGING RIGHT LOWER EXTREMITY VASCULAR LAB Pat.Name: DENI SOOD Pat.ID: [id number] .Date: 09/01/2024 Refer.: [id number], Kecia Pat Eddie Exam Time: 9:09:00 AM Study Type:KENNETH VS Venous Duplex Leg Rt Age: 3 1965,59Y Sex: F Sonogrphr: Clyde Johnson RDMS, RVT History / Clinical:right peroneal vein DVT on 06-07-24, f/u DVT Procedures: Lacy scale, Color Doppler imaging, Doppler Spectral Analysis Race: W ++++++++++++++++++++++++++++++++++++ SUMMARY: ++++++++++++++++++++++++++++++++++++ Right leg: There are NO apparent, deep or superficial vein, ACUTE character venous filling defects visualized in the common femoral, femoral, popliteal, deep calf or proximal saphenous veins. Resting venous flow is normal phasic proximally. Left leg LIMITED: There are NO apparent, deep vein, ACUTE character venous filling defects visualized in the common femoral vein. Resting venous flow is normal phasic at the common femoral. CONCLUSION: Normal study right lower extremity and contralateral left common femoral vein, with no evidence of acute deep or superficial vein thrombosis. <Electronic Signature> 09/03/2024 07:48 PM Tom Stewart M.D. Enoc Hager MD VASC Final Result from Last 3 Months Insurance [facility] Care Teams Innovation Manager Relationship Specialty Start Date End Date Clarence Soliz NP [address] [facility] [address] [address] [place] [address] PCP - General NURSE PRACTITIONER 08/29/24
--- OUTSIDE RECORDS SUMMARY | 2024-11-03 12:20 | XMS_ITS | Clinical Summary ---
Author Organization [facility] Address [address] [place] [address] Care Team Providers Care Nozzle Cement Sprayer Helper Name Role Phone Sergio Bush PA-C Primary Care Provide r Source Comments [facility],non-owned Affiliates and Associated Physician Practices is amultiple site organization consisting of ambulatory clinics and hospital sitesin [place], [place], [place] and [place]. This disclosure is being madepursuant to the Care Everywhere program and may not contain all information available regarding this patient. Last updated 17.[facility] Allergies Active Allergy Reactions Criticality Noted Date Comments Hydrocodone-Acetaminophen Nausea and/or Vomiting,Vomiting Low 04/12/2020 Medications * Be aware that medications may not be up to date on this document. Alwaysverify current medications with the patient. FeroSul 325 (65 Fe) MG tablet Take 1 (one) tablet by mouth once daily 3 Active omeprazole (PriLOSEC) 20 MG capsule Take 1 (one) capsule by mouth once daily Active Vitamin D3 (Cholecalciferol) 50 MCG (2000 UT) capsule Take 1 (one) capsule by mouth once daily Active diclofenac sodium (Voltaren) 1 % gel Apply to affected area 4 times daily Active levothyroxine (Synthroid) 112 MCG tablet Take 1 (one) tablet by mouth once daily 60 tablet 3 Active terbinafine (LamISIL) 250 MG tablet Take 1 (one) tablet by mouth once daily 4 Active Synthroid 150 MCG tablet Take 1 (one) tablet by mouth once daily Active Eliquis 5 MG tablet Take 1 (one) tablet by mouth 2 times daily 5 Active silver sulfADIAZINE (Silvadene) 1 % cream Apply to affected area 2 times daily 5 Active oyster shell calcium 500 MG tablet Take 1 (one) tablet by mouth 2 times daily Active MAGNESIUM PO Take 250 mg by mouth once daily Active docusate sodium (Colace) 100 MG capsule Take 1 (one) capsule by mouth 2 times daily as needed 5 Active Active Problems Problem Noted Date Diagnosed Date Thyroid cancer 10/13/2022 Thyroid nodule 09/12/2022 Immunizations Immunization Administration Dates Next Due FLU VACCINE QUAD IIV4 SPLIT 0.25 ML IM 3 INFLUENZA VACCINE, CELL CULT URE, QUADR. (FLUCELVAX [...] more drinks on one occasion? Never 01/01/2023 Comments No Sex and Gender Information Value Date Recorded Sex Assigned at Not on file Legal Sex Female 9:02 AM CDT Gender Identity Not on file Sexual Orientation Not on file Last Filed Vital Signs Vital Sign Reading Time Taken Comments Blood Pressure 137/87 10/19/2023 9:44 AM CDT Pulse 99 10/19/2023 9:44 AM CDT Temperature 36.7 C (98.1 F) 01/02/2023 7:06 AM SPIRAL TUBE WINDER HELPER Respiratory Rate 18 01/02/2023 7:06 AM SPIRAL TUBE WINDER HELPER Oxygen Saturation 98% 01/02/2023 7:06 AM SPIRAL TUBE WINDER HELPER Inhaled Oxygen Concentration - - Weight 88.5 kg (195 lb) 10/19/2023 9:44 AM CDT Height 162.6 cm (5' 4) 10/19/2023 9:44 AM CDT Body Mass Index 33.47 10/19/2023 9:44 AM CDT Plan of Treatment Health Maintenance Due Date Last Done Comments COLOGUARD (AGES 45-75) - COLON CA SCREENING 1965 COLON MONITORING 1963 COLONOSCOPY - COLON CA SCREENING 1963 CT COLONOGRAPHY - COLON CA SCREENING 1963 Colorectal Cancer Screening 1965 FIT - COLON CA SCREENING 1963 FLEX SIG - COLON CA SCREENING 1963 LIPID TESTING 1965 HIV SCREENING 06/28/1978 HEPATITIS C SCREENING 06/24/1981 PAP SMEAR 06/28/1984 PNEUMOCOCCAL VACCINE 50+ (1 of 1 - PCV) 06/28/2013 ZOSTER VACCINE (1 of 2) 06/28/2013 DTAP/TDAP/TD VACCINES (2 - Td or Tdap) 09/21/2020 09/21/2010 MAMMOGRAM 02/02/2022 02/03/2020, 01/07/2019 DEPRESSION SCREENING 02/06/2024 COVID-19 VACCINE (1 - season) 2024 INFLUENZA VACCINE (#1) 2024 4, 11/05/2022, 11/24/2019, Additional history exists Respiratory Syncytial Virus (RSV) [...] on patient's age to complete this topic Insurance [employer] Advance Directives * Full Code (Latest Code Status on File) Date Activated Date Inactivated Comments 01/01/2023 11:06 AM 01/02/2023 10:25 AM * Full Code Date Activated Date Inactivated Comments 09/12/2022 10:34 AM 09/13/2022 11:54 AM Care Teams Nozzle Cement Sprayer Helper Relationship Specialty Start Date End Date Sergio Bush PA-C [address] [facility] [address] [place] [address] PCP - General Physician Authorization Representative 08/30/22
== END 2024-11-03 12:18 | disposition home or self-care (01) ==
PROVIDERS: PCP Nurse Practitioner; Visit Provider Internal Medicine
DX: C73 Malignant neoplasm of thyroid gland (principal); E66.9 Obesity, unspecified; E89.0 Postprocedural hypothyroidism; R59.0 Localized enlarged lymph nodes
CPT/HCPCS: 76536